=== PATIENT | male | born 1965 | race Caucasian/White ===

== ENCOUNTER 2019-09-10 18:27 | Emergency (ER) | payer MEDICARE, MEDICAID, SELFPAY ==
--- NOTE | ~2019-09-10 | CT_ITS ---
EXAMINATION: CT cervical spine wo con, CT brain wo con EXAM DATE: 09/10/2019 19:32 (accession [id number]), 09/10/2019 19:31 (accession [id number]) INDICATION: Fall, posterior head injury. Confusion. Posterior neck pain. TECHNIQUE: Spiral CT of the head was performed without contrast. Axial, coronal and sagittal images were reviewed. Spiral CT of the cervical spine was performed without contrast. Axial images were rev iewed. Coronal and sagittal reformatted images were also reviewed. The dose-length product (DLP) fo r this examination was 214.29 (accession [id number]), 605.33 (accession [id number]) mGy-cm. The exposure was tailored according to patient size, and iterative reconstruction (ASIR) was used as additional dose reduction technique. There is no prior study for comparison. FINDINGS: HEAD CT: There is no acute intraparenchymal hemorrhage. No evidence of intraparenchymal brain mass l esion. No evidence of acute infarction. There is no mass effect or midline shift. There is no obstru ctive hydrocephalus suspected. There are no extra-axial collections. There are no acute calvarial f ractures. The orbits are unremarkable. Soft tissue is unremarkable. The visualized sinuses and mas toid air cells are well aerated. CERVICAL CT: There is severe apical emphysema. Moderate midcervical spondylosis. There is no evidence of acute cervical fracture. The odontoid process is intact. Pre-dens space is normal. Prevertebra l soft tissue is normal. There are no soft tissue abnormalities identified. There is no disc space widening or traumatic vertebral body subluxation suspected. A detailed level by level evaluation of spondylosis can be added as addendum if requested. IMPRESSION: 1. No acute intracranial or cervical findings. 2. Moderate midcervical spondylosis. 3. Severe apical emphysema. Reviewed, dictated and finalized at location A. IMPRESSION: 1. No acute intracranial or cervical findings. 2. Moderate midcervical spondylosis. 3. Severe apical emphysema.
[2019-09-10 19:05] VITALS: BP 136/78; PULSE 95; RESP 18; TEMP 37.1; O2SAT 97
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
[2019-09-10 20:07] VITALS: RESP 18
== END 2019-09-10 20:08 | disposition home or self-care (01) ==
PROVIDERS: Emergency Provider Emergency Medicine; PCP Family Medicine
DX: S06.0X0A Concussion without loss of consciousness, initial encounter (principal); V94.0XXA Hitting object or bottom of body of water due to fall from watercraft, initial encounter
CPT/HCPCS: 70450; 72125; 99283; 99284

== ENCOUNTER 2019-09-19 18:08 | Inpatient (IN) | payer MEDICARE, MEDICAID, SELFPAY ==
[2019-09-19] VITALS (10 sets, daily range): BP systolic 110–163; BP diastolic 64–86; PULSE 64–85; RESP 12–20; TEMP 36.9–37.1; O2SAT 94–98; BMI 22.4
--- NOTE | ~2019-09-19 | CT_ITS ---
EXAMINATION: CT abdomen pelvis w con EXAM DATE: 09/19/2019 19:58 INDICATION: Elevated lipase. TECHNIQUE: Spiral CT of the abdomen and pelvis was performed following intravenous injection of 100 m L Omnipaque 350. Axial, coronal and sagittal images were reviewed. The dose-length product (DLP) fo r this examination was 377.04 mGy-cm. The exposure was tailored according to patient size (auto mA e xposure control), and iterative reconstruction (ASIR) was used as additional dose reduction technique . Comparison is made to prior examination from 06/30/2014. FINDINGS: The liver, spleen, adrenal glands and pancreas are unremarkable. Gallbladder is unremarkab le. No biliary obstruction. Portal and splenic veins are patent. Kidneys enhance symmetrically. T here is no hydronephrosis. There is punctate left mid calyceal stone. The prostate is unremarkable. The bladder is unremarkable. There is no retroperitoneal or pelvic lymphadenopathy. The appendix is not positively visualized. There is no pericecal inflammatory change to suggest appe ndicitis. Some pericecal surgical clips. There is mild descending colonic colonic diverticulosis. Th ere is no adjacent inflammatory change to suggest diverticulitis. The stomach and small bowel are unr emarkable. There is expected amount of colonic stool. No free intraperitoneal gas. The heart is normal in size. There are no pericardial or pleural effusions. Small amount of right middle lobe sc arring. The bones are unremarkable. IMPRESSION: 1. No acute intra-abdominal findings. 2. Mild colonic diverticulosis. 3. Punctate left nephrolithiasis. Reviewed, dictated and finalized at location A.
--- NOTE | ~2019-09-19 | US_ITS ---
EXAMINATION: US abdomen complete DATE: 09/20/2019 08:10 INDICATION: Abdominal pain. Nausea and vomiting. Elevated lipase. TECHNIQUE: Multiple grayscale and Doppler ultrasound images of the abdomen were obtained. COMPARISON: CT abdomen and pelvis 09/19/2019 FINDINGS: The visualized portions of the head, body, and tail of the pancreas are normal. The liver d emonstrates a 7 mm hyperechoic mass. There is normal flow in main portal vein. The gallbladder is nor mal in size and contains sludge. No gallstones or gallbladder wall thickening. There was no sonograph ic Cook sign. The common duct is normal and measures 4 mm. The spleen is normal in size. The kidney s are normal in size. There is a 1.3 cm cyst in left kidney. IMPRESSION: 1. Gallbladder sludge. No evidence of acute cholecystitis. 2. 7 mm liver mass. In the absence of known malignancy or chronic liver disease, this finding is like ly a benign mass such as a hemangioma. Reviewed, dictated and finalized at location A. IMPRESSION: 1. Gallbladder sludge. No evidence of acute cholecystitis. 2. 7 mm liver mass. In the absence of known malignancy or chronic liver disease , this finding is likely a benign mass such as a hemangioma.
--- NOTE | 2019-09-19 18:27 | ED.ABDPAIN ---
HPI - Abdominal Pain General Chief Complaint: Abdominal Pain Stated Complaint: not eating, cant keep anything down Time Seen by Provider: 09/19/19 18:11 Source: patient Mode of arrival: ambulatory History of Present Illness HPI narrative: patient states he has been having diffuse abdominal pain for the last 3 days. She has not been able to keep even water down. He tried some popsicles at home and those made him nauseous and crossed and more abdominal pain. He has only been having some diarrhea for 1 day. Nausea vomiting off and on for 3 days. Denies any fever chills. Denies any bloody stools. MD elicited complaint: abdominal pain Onset (ago): day(s) (3) Pain Consistency: intermittent Location: diffuse Pain scale (0-10): 7 Quality: cramping and stabbing Migration to: no migration Exacerbating factors: eating and movement Relieving factors: nothing Context: confirms history of similar episodes ( Diverticulitis) Associated symptoms: nausea, vomiting and diarrhea Related Data Home Medications Medication Instructions Recorded Confirmed No Home Medications 09/19/19 09/19/19 Allergies Allergy/AdvReac Type Severity Reaction Status Date / Time No Known Allergies Allergy Verified 09/19/19 14:28 Review of Systems Constitutional: Constitutional: Denies chills and Denies fever(s) Eyes: Eyes: Reports no additional eye complaints ENT: Reports system reviewed and no additional complaints, except as documented Cardiovascular: Cardiovascular: Reports no additional cardiovascular complaints Respiratory: Respiratory: Reports no additional respiratory complaints Gastrointestinal: Gastrointestinal: Denies constipation and Denies heartburn Genitourinary: Genitourinary: Reports no additional male genitourinary complaints and Denies dysuria Musculoskeletal: Musculoskeletal: Reports no additional musculoskeletal complaints Integumentary/Breasts: Skin/Breast: Reports system reviewed and no additional complaints, except as docu Neurologic: Reports confusion ( not new, patient had recent concussion) Psychiatric: Psychiatric: Reports no additional psychiatric complaints Allergic/Immunologic: Allergic/Immunologic: Reports no additional allergic/immunologic complaints PMFSH Past Medical History Medical History Anxiety Cerna's palsy C. 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 Eyes: Conjunctivae: conjunctivae normal Pupils: Equal, round and reactive pupils present EOM: EOMs intact bilaterally Neck: Neck: normal visual inspection Resp: Effort & Inspection: normal respiratory effort Auscultation: clear to auscultation bilaterally Cardio: Rate: regular rate Rhythm: regular rhythm GI: GI Palp: Yes Soft to palpation, Yes Tenderness to palpation present (GI), Yes Guarding due to palpation present (GI) (Diffuse), No Hepatomegaly present, No Splenomegaly present and Yes Rebound tenderness present Auscultation: normal bowel sounds Back/Spine/Pelvis: Back: no CVA tenderness Skin: General skin exam: normal color Rashes: no rashes Neuro: General: patient oriented x3, moves all extremities and no focal motor deficits Speech: normal speech Gait exam (Neuro): Normal gait present Extrem: General: normal to inspection
[2019-09-19] MEDS: ONDANSETRON INJ 4 MG/2 ML VIAL IV PUSH (18:40)
[2019-09-19 19:02] LABS: Basophils Absolute Auto 0.05 K/mm3 (0.00-0.10); Basophils Percent Auto 0.4 % (0.0-1.0); Eosinophils Absolute Auto 0.04 K/mm3 (0.02-0.50); Eosinophils Percent Auto 0.4 % (1.0-6.0); Hematocrit 43.3 % (40.0-54.0); Hemoglobin 15.2 g/dL (14.0-18.0); Immature Granulocyte Absolute 0.05 K/mm3 (0.00-0.00); Immature Granulocyte Percent A 0.4 % (0.0-0.0); Lymphocytes Absolute Auto 1.95 K/mm3 (1.10-4.50); Lymphocytes Percent Auto 17.4 % (18.0-42.0); Mean Corpuscular HGB Conc 35.1 g/dL (32.0-36.0); Mean Corpuscular Hemoglobin 31.8 pg (27.0-31.0); Mean Corpuscular Volume 90.6 fL (78.0-102.0); Mean Platelet Volume 9.7 fl (8.7-11.0); Monocytes Absolute Auto 0.72 K/mm3 (0.10-0.90); Monocytes Percent Auto 6.4 % (2.0-11.0); Neutrophils Absolute Auto 8.4 K/mm3 (1.7-7.2); Platelet Count Result 327 K/mm3 (150-420); Red Blood Count 4.78 M/mm3 (4.70-6.10); Red Cell Distribution Width 13.3 % (11.6-14.4); White Blood Count 11.2 K/mm3 (4.8-10.8)
[2019-09-19 19:02] LABS: Add Urine Microscopic? YES; Appearance Urine Clear (Clear); Bilirubin Urine Negative (Negative); Blood Urine 1+ (Negative); Color Urine Yellow (Yellow); Glucose Urine UA Negative (Negative); Ketones Urine Negative (Negative); Leukocyte Esterase Ur Negative LEU/UL (Negative); Nitrate Urine Negative (Negative); Protein Urine Negative (Negative); Urobilinogen Urine 0.2 mg/dL (0.2-1.0)
[2019-09-19 19:08] LABS: Squamous Epithelial Cell Urine Rare /hpf (Few); WBC Urine 0-3 /hpf (0-3)
[2019-09-19 19:09] LABS: Bacteria Urine Trace /hpf; Mucus Urine Few /lpf
[2019-09-19 19:12] LABS: Amphetamine Screen Urine Negative (Negative); Barbiturate Screen Urine Negative (Negative); Benzodiazepines Screen Urine Negative (Negative); Cannabinoid Screen Urine Positive (Negative); Cocaine Screen Urine Negative (Negative); Methadone Screen Urine Negative (Negative); Opiate Screen Urine Negative (Negative); Phencyclidine Screen Urine Negative (Negative)
[2019-09-19 19:23] LABS: Lactic Acid Reflex 1.6 mmol/L (0.4-2.0)
[2019-09-19 19:27] LABS: Alanine Aminotransferase 23 U/L (16-63); Albumin Level 2.9 g/dL (3.4-5.0); Alkaline Phosphatase 62 U/L (46-116); Anion Gap 9.7 mmol/L (7-16); Aspartate Amino Transferase 13 U/L (15-37); Bilirubin,Total 0.6 mg/dL (0.00-1.00); Blood Urea Nitrogen 11 mg/dL (7-18); Calcium 8.2 mg/dL (8.5-10.1); Carbon Dioxide 30 mmol/L (21-32); Chloride 102 mmol/L (98-108); Estimated CRCL calculation 73 ml/min; Estimated Glomerular Filt Rate > 60; Glucose 130 mg/dL (70-99); Lipase 1320 U/L (73-393); Osmolality Calculated 287 mOsm/kg (285-295); Potassium 3.7 mmol/L (3.5-5.1); Sodium 138 mmol/L (136-145); Total Protein 6.4 g/dL (6.4-8.2)
[2019-09-19] MEDS: HYDROMORPHONE HCL 2 MG/ML VIAL 1 MG IV PUSH ×2 (19:37→23:48)
[2019-09-19 19:43] LABS: Amylase 153 U/L (25-115)
[2019-09-19 20:01] LABS: Erythrocyte Sedimentation Rate 4 mm/hr (0-20)
[2019-09-19 20:05] LABS: CRP < 0.2 mg/dL (0.0-0.9)
--- NOTE | 2019-09-19 20:26 | PC.NURSE ---
2019 RN CONTACTED VAIBHAV WELLS RN, TO REQUEST INPATIENT ROOM. ROOM 205 PROVIDED. REGISTRATION NOTIFIED.
--- NOTE | 2019-09-19 20:33 | PC.NURSE ---
RN ATTEMPTED TO CALL REPORT AT 2032, PRISCILLA ESPOSITO RN STATES THAT JAYLENE GERARDO IS FINISHING UP MEDICATION PASS AND WILL CALL RN BACK IN 5 MINUTES.
[2019-09-19] MEDS: DEXTROSE 5%/0.45% SOD CHL 1,000 ML 150 ML IV CONT (20:59)
--- NOTE | 2019-09-19 21:24 | ADMGEN ---
This patient, Chucky Ojeda, was admitted to 2nd Floor Room 205-2. Patient oriented to hospital policies and general routines including ID bracelet, bed and alarms, visiting hours, pain management, procedures, bathroom and other care routines, personal items, smoking policy, room service/diet, and visiting hours. Valuables list includes clothing he has on, hat, wallet with $100 in it, cell phone with no furnace checker. Information on how to activate the Rapid Response Team has been discussed. Patient/Family are encouraged to report perceived risks to care and to ask questions if they do not understand what they are told or what they should do.
[2019-09-20] VITALS: BP 116/75; PULSE 54; RESP 20; TEMP 36.5; O2SAT 94
[2019-09-20] MEDS: ONDANSETRON INJ 4 MG/2 ML VIAL IV PUSH (00:08)
--- NOTE | 2019-09-20 00:14 | PC.NURSE ---
0005 Dr. Barakat notified of pt's c/o nausea and dry heaves. New orders received and noted.
--- NOTE | 2019-09-20 00:15 | PC.NURSE ---
When nurse gave patient the requested Dilaudid for abdominal pain patient was having dry heaves. Charge nurse notified and she then notified Dr Barakat and received order to change patient's Zofran from every 6 hours to every 4 hours. Zofran then given.
[2019-09-20] MEDS: DEXTROSE 5%/0.45% SOD CHL 1,000 ML 150 ML IV CONT (03:23)
[2019-09-20 05:46] LABS: Basophils Absolute Auto 0.04 K/mm3 (0.00-0.10); Basophils Percent Auto 0.4 % (0.0-1.0); Eosinophils Absolute Auto 0.25 K/mm3 (0.02-0.50); Eosinophils Percent Auto 2.4 % (1.0-6.0); Hematocrit 39.6 % (40.0-54.0); Hemoglobin 13.8 g/dL (14.0-18.0); Immature Granulocyte Absolute 0.04 K/mm3 (0.00-0.00); Immature Granulocyte Percent A 0.4 % (0.0-0.0); Lymphocytes Absolute Auto 4.32 K/mm3 (1.10-4.50); Lymphocytes Percent Auto 42.3 % (18.0-42.0); Mean Corpuscular HGB Conc 34.8 g/dL (32.0-36.0); Mean Corpuscular Volume 91.9 fL (78.0-102.0); Mean Platelet Volume 9.8 fl (8.7-11.0); Monocytes Absolute Auto 0.82 K/mm3 (0.10-0.90); Neutrophils Absolute Auto 4.8 K/mm3 (1.7-7.2); Neutrophils Percent Auto 46.5 % (50.0-70.0); Platelet Count Result 274 K/mm3 (150-420); Red Blood Count 4.31 M/mm3 (4.70-6.10); Red Cell Distribution Width 13.5 % (11.6-14.4); White Blood Count 10.2 K/mm3 (4.8-10.8)
[2019-09-20 05:58] LABS: Amylase 74 U/L (25-115); Lipase 310 U/L (73-393)
--- NOTE | 2019-09-20 07:28 | PC.NURSE ---
Ice chips given, has been advanced to clear liquid diet
[2019-09-20 07:29] VITALS: BP 107/66; PULSE 63; RESP 18; TEMP 36.7; O2SAT 98
--- NOTE | 2019-09-20 07:39 | PC.NURSE ---
Ultra sound at the bedside to perform abdominal ultra sound, collection hat to bathroom to attempt to collect stool samples
--- NOTE | 2019-09-20 08:00 | PC.NURSE ---
Ultra sound complete
[2019-09-20 08:22] LABS: Alanine Aminotransferase 18 U/L (16-63); Albumin Level 2.5 g/dL (3.4-5.0); Alkaline Phosphatase 53 U/L (46-116); Anion Gap 8.1 mmol/L (7-16); Aspartate Amino Transferase 11 U/L (15-37); Bilirubin,Total 0.4 mg/dL (0.00-1.00); Blood Urea Nitrogen 9 mg/dL (7-18); Calcium 7.8 mg/dL (8.5-10.1); Carbon Dioxide 31 mmol/L (21-32); Chloride 103 mmol/L (98-108); Estimated CRCL calculation 79 ml/min; Estimated Glomerular Filt Rate > 60; Glucose 110 mg/dL (70-99); Magnesium 2.2 mg/dL (1.8-2.4); Osmolality Calculated 287 mOsm/kg (285-295); Phosphorus 3.5 mg/dL (2.6-4.7); Potassium 3.1 mmol/L (3.5-5.1); Sodium 139 mmol/L (136-145); Thyroid Stimulating Hormone Reflex 1.61 u/IU/mL (0.36-3.74); Total Protein 5.5 g/dL (6.4-8.2)
--- NOTE | 2019-09-20 08:37 | PC.NURSE ---
Took in some oral fluids, no nausea, no increase in pain voiced, fluids infusing
--- NOTE | 2019-09-20 08:51 | ECG_ITS ---
Measurements Intervals [place] Rate: 61 P: 61 ME: 133 QRS: 79 QRSD: 85 T: 60 QT: 403 QTc: 406 Interpretive Statements SINUS RHYTHM DELAYED PRECORDIAL R/S TRANSITION BORDERLINE ECG Electronically Signed On 09-20-2019 10:46:30 CDT by Brooks Blandon D.O.
[2019-09-20 09:22] LABS: Creatine Kinase 29 U/L (39-308)
[2019-09-20 09:25] LABS: Creatine Kinase MB < 0.50 ng/mL (0.00-5.00); Troponin I < 0.02 ng/mL (0.00-0.056)
[2019-09-20] MEDS: LACTATED RINGERS 1,000 ML 100 ML IV CONT (10:01)
--- NOTE | 2019-09-20 10:08 | PM.IMHP ---
H&P: HPI History of Present Illness Chief complaint: pancreatitis <Latasha Betancur, CARTOGRAPHY TEACHER - Last Filed: 09/20/19 14:33> Narrative: Chucky Ojeda is a 53 year old male admitted yesterday afternoon do the ER due to him having diffuse abdominal pain for the last 3 days approximately since Wednesday. He stated that every time he had a meal or food about an hour later he would start to have abdominal cramping and pain and then vomiting and diarrhea. He stated that the only way he could get comfortable was to sit upright, straight upright, or to curl up on his side. He said he did try Tums and milk of magnesia at home without any relief. He denies taking Tylenol or Motrin on a daily basis, he denies alcohol consumption even social alcohol consumption, he denied marijuana use at the time of my interview. But his urine screen, urinalysis, did show positive for cannabinoids. He denies having any blood in his vomit or in his stools or in his urine. Although his urinalysis again showed 1+ blood, 3-5 RBCs, negative for nitrates, negative for bili, trace bacteria. His white count was 10.2 today, hemoglobin and hematocrit stable today at 13.8 and 39.6, platelets 274. No fevers per review of vital signs and no hypotension or tachycardia and his lowest heart rate was 54, vital signs appear stable. His EKG was a normal sinus rhythm that was regular with no ST elevation or depressions noted. His electrolytes were stable today after the IV fluids, magnesium 2.2 phosphorus 3.5. His potassium was 3.1; I have ordered oral potassium at 40 mEq to be given this morning and another dose in 4 hours this afternoon. He denies chest pain, shortness of breath, denies current nausea, vomiting, abdominal pain. His abdomen is soft and palpable with no distension or firmness, he has no rebound tenderness and no palpable liver edges. We have ordered a complete abdominal ultrasound for further diagnostics, ordered stool cultures, changed his IV fluids from D5 to LR, advancing his diet as tolerated from clear liquids up to a bland low-fat diet, using oral medications such as Tylenol and or [place] to treat any pain and discontinuing the IV Dilaudid, ordered an EKG and reviewed that are ready. His lipase was 1320 admission and found to be 310 this morning, his lactic was 1.6, his total bilirubin was 0.4, ALT 18, AST 11, alk-phos 53 , CRP less than 0.2, amylase 74, TSH 1.61. He does not seem to have any signs or symptoms of liver disease at this time. He does have a recent history of a concussion with post-concussion syndrome including headaches, nausea, maxillofacial pain which he has been in the ER at [facility] and at [facility] in [facility] for these concerns. He has had CT scans and lumbar spine x-ray at [facility] on September 11 which showed no acute abnormalities or concerns. Also at [facility] on June 21 he was admitted for abdominal pain and was complaining of vomiting blood, his lipase was 149 and LFTs WNL, his CT showed improvement of his diverticulitis since his antibiotic therapy completed. He did have an EGD with Dr. Delfino Mcdaniel. which showed moderate reflux espophagitis and chronic gastritis inflammation with no active bleed on June 22. His CT scan on June 21 showed bilateral nephrolithiasis and uncomplicated diverticulitis. He was started on oral Protonix when he was discharged from [facility] on June 21 and was continued on methylprednisolone , Zofran, Zoloft. He was to have a follow-up with Dr. Delfino Mcdaniel in July 2019 and get a planned colonoscopy also completed. If the patient tolerates these meals without any new or returning abdominal pain, nausea vomiting, diarrhea; he may be discharged today and expected to follow-up with his PCP Dr. Cox regarding the 1+ blood in his urine as well as follow-up with GI Dr. Delfino Mcdaniel for his colonoscopy. He should follow-up with both of these providers and
[2019-09-20] MEDS: POTASSIUM CHLORIDE 20 MEQ TABLET 40 MEQ PO ×2 (10:32→13:19)
--- NOTE | 2019-09-20 10:46 | PC.NURSE ---
stool samples obtained, brown liquid stool noted
[2019-09-20 11:09] LABS: Folic Acid 7.7 ng/mL (8.6->20); Iron 104 ug/dL (65-175); Percent Iron Saturation 42 % (12-57); Vitamin B12 424 pg/mL (193-986)
[2019-09-20 11:09] LABS: Occult Blood Negative (Negative)
--- NOTE | 2019-09-20 12:02 | PC.NURSE ---
Tolerating lunch at this time, denies increase pain or nausea
--- NOTE | 2019-09-20 13:21 | PC.NURSE ---
potassium given early as directed by hospitalist
--- NOTE | 2019-09-20 13:31 | PM.DS ---
DS: Discharge Diagnosis Discharge Diagnosis (1) Pancreatitis: Code(s): K85.90 - Acute pancreatitis without necrosis or infection, unspecified <Latasha Betancur NP - Last Filed: 09/20/19 14:34> Status: Acute <Latasha Betancur NP - Last Filed: 09/20/19 14:34> Assessment and Plan: Patient was admitted yesterday for acute pancreatitis with abdominal pain and cramping, nausea vomiting and diarrhea and unable to eat he was placed on NPO status he was given IV fluids at 150 mils an hour overnight His lipase was 1320 admission and found to be 310 this morning, his lactic was 1.6, his total bilirubin was 0.4, ALT 18, AST 11, alk-phos 53 , CRP less than 0.2, amylase 74, TSH 1.61. his pain has completely resolved and is well controlled today as he has not required any IV or oral pain since last night no fevers, WBC normal, no chills, UA clear for Nitrate and trace bacteria tolerated both of his meals today No new or returning abdominal pain, nausea vomiting, diarrhea continue to avoid alcohol and stop his marijuana use No fevers per review of vital signs and no hypotension or tachycardia and his lowest heart rate was 54, vital signs appear stable. His EKG was a normal sinus rhythm that was regular with no ST elevation or depressions noted. His electrolytes were stable today after the IV fluids, magnesium 2.2 phosphorus 3.5. His potassium was 3.1; I have ordered oral potassium at 40 mEq to be given this morning and another dose in 4 hours this afternoon. continue a bland low-fat diet He will be discharged today and expected to follow-up with his PCP Dr. Cox regarding the 1+ blood in his urine as well as follow-up with GI Dr. Delfino Mcdaniel for his colonoscopy. He should follow-up with both of these providers and discuss his intermittent episodes of return of abdominal pain as well as the liver mass shown on today's ultrasound. <Latasha Betancur NP - Last Filed: 09/20/19 14:34> (2) Emphysema lung: Code(s): J43.9 - Emphysema, unspecified <Latasha Betancur NP - Last Filed: 09/20/19 14:34> Status: Acute <Latasha Betancur NP - Last Filed: 09/20/19 14:34> Assessment and Plan: lungs were clear with auscultation upon exam today patient is not coughing or clearing his throat, no signs of dyspnea or shortness of breath. He continues to smoke at least half a pack a day, but does not require home nebs or inhaler. white count was 10.2 today, hemoglobin and hematocrit stable today at 13.8 and 39.6, platelets 274. No fevers per review of vital signs and no hypotension or tachycardia and his lowest heart rate was 54, vital signs appear stable. His EKG was a normal sinus rhythm that was regular with no ST elevation or depressions noted. <Latasha Betancur, EMEKA - Last Filed: 09/20/19 14:34> (3) Left nephrolithiasis: Code(s): N20.0 - Calculus of kidney <Latasha Betancur NP - Last Filed: 09/20/19 14:34> Status: Acute <Latasha Betancur NP - Last Filed: 09/20/19 14:34> Assessment and Plan: his CT yesterday evening showed punctate left nephrolithiasis( on left mid calyceal stone) his ultrasound today showed The kidneys are normal in size. There is a 1.3 cm cyst in left kidney. the patient during his examination did not have any flank pain, did not have any pain with urination, and denied having blood with urination or urgency Juan did tell me that he has had a kidney stone in the past that he passed and stated that he would have recognized that pain, stated himself that it was flank pain in the past when he had a kidney stone to pass, and denied that his pain for this admission was anything like that during this admission, neither his CT scan nor his ultrasound showed that he had hydronephrosis or any inflamed ureters or any acute or concerning kidney stones his renal function is normal as well as his white count and he does not have any fevers his pain is wel
--- NOTE | 2019-09-20 13:48 | PC.NURSE ---
Discharge instructions reviewed with patient, no questions voiced, calling for ride home personal items with patient
--- NOTE | 2019-09-20 13:55 | PC.NURSE ---
Discharged via wheel chair to home, personal items returned to patient, no questions upon dc home
== END 2019-09-20 13:55 | disposition home or self-care (01) | DRG 440 ==
LOC: CHSED 20:25 → CHS2ND 20:35
PROVIDERS: Nurse Practitioner; Admitting Provider Emergency Medicine; Emergency Provider Emergency Medicine; PCP Family Medicine; Visit Provider Emergency Medicine
DX: K85.90 Acute pancreatitis without necrosis or infection, unspecified (principal); F41.9 Anxiety disorder, unspecified; F32.9 Major depressive disorder, single episode, unspecified; F17.200 Nicotine dependence, unspecified, uncomplicated; G51.0 Bell's palsy; N20.0 Calculus of kidney; R16.0 Hepatomegaly, not elsewhere classified; K82.8 Other specified diseases of gallbladder; J43.9 Emphysema, unspecified; H54.8 Legal blindness, as defined in USA; F17.220 Nicotine dependence, chewing tobacco, uncomplicated; F12.90 Cannabis use, unspecified, uncomplicated
CPT/HCPCS: 36415; 74177; 76700; 80053; 80307; 81001; 82150; 82550; 82553; 82607; 82746; 83540; 83550; 83605; 83690; 83735; 84100; 84443; 84484; 85025; 85652; 86140; 87045; 87046; 87177; 87209; 87269; 87272; 87324; 87427; 89055; 93005; 96374; 96375; 99284; 99285; A9270; J1170; J2405; J7120; Q9965

== ENCOUNTER 2019-09-21 02:03 | Observation (INO) | payer MEDICARE, MEDICAID, SELFPAY ==
[2019-09-21] VITALS (7 sets, daily range): BP systolic 110–163; BP diastolic 70–104; PULSE 56–86; RESP 18–20; TEMP 36.1–37.2; O2SAT 94–100; BMI 23.5
--- NOTE | ~2019-09-21 | CT_ITS ---
EXAMINATION: CT abdomen pelvis w con DATE: 09/21/2019 03:59 INDICATION: Abdominal pain. Leukocytosis. TECHNIQUE: Computed tomography (CT) of the abdomen and pelvis was performed with 100 mL Omnipaque 350 intravenous contrast. Automated exposure control and iterative reconstruction technique were employe d. The dose-length product was 239.63 mGy-cm. COMPARISON: CT abdomen and pelvis 09/19/2019, 06/30/2014 FINDINGS: The visualized portions of the lung bases demonstrate mild atelectasis on the right. There is a 5 mm nodule in right middle lobe not included on the CT from 06/30/2014, likely benign. No pleura l effusion. The heart size is normal. No pericardial effusion. The liver, gallbladder, spleen, pancre as, adrenal glands, and right kidney are normal. There are cysts in left kidney measuring up to 1.2 c m. There is a 2 mm stone in left kidney. There is diverticulosis of the colon without evidence of div erticulitis. There are changes of appendectomy. There are no pathologically enlarged lymph nodes. The re is no free intraperitoneal fluid. There are small bilateral inguinal hernias containing fat. There is mild thoracolumbar spondylosis. IMPRESSION: 1. Small bilateral inguinal hernias containing fat. 2. 2 mm nonobstructing left kidney stone. Reviewed, dictated and finalized at location A.
--- NOTE | 2019-09-21 02:10 | ECG_ITS ---
Measurements Intervals [place] Rate: 74 P: 79 TX: 126 QRS: 85 QRSD: 78 T: 72 QT: 350 QTc: 389 Interpretive Statements SINUS RHYTHM BASELINE ARTIFACT- I, II, III, AVR, AVL, AVF, V1-V6 NORMAL ECG Electronically Signed On 09-21-2019 7:05:58 CDT by Brooks Blandon D.O.
[2019-09-21] MEDS: MORPHINE SULFATE 4 MG/ML INJ IV PUSH ×2 (02:21→02:39)
[2019-09-21] MEDS: ONDANSETRON INJ 4 MG/2 ML VIAL IV PUSH ×3 (02:21→07:47)
[2019-09-21] MEDS: LACTATED RINGERS 1,000 ML 999 ML IV CONT ×2 (02:38→04:40)
--- NOTE | 2019-09-21 02:47 | ED.ABDPAIN ---
HPI - Abdominal Pain General Chief Complaint: Abdominal Pain Stated Complaint: Abdominal Pain History of Present Illness HPI narrative: Chucky is a 53-year-old man with a PMH of tobacco abuse, gallbladder sludge, nephrolithiasis, C. diff and Cerna's that was discharged with acute pancreatitis of idiopathic origin yesterday. At the time of discharge she was feeling good and did not want any pain medicines on discharge. Today he went home took a nap and only ate a bowl of chicken noodle soup when he started having diffuse abdominal pain worse in the epigastric region. It is associated with intense nausea and multiple episodes of NBNB vomiting. Related Data Allergies Allergy/AdvReac Type Severity Reaction Status Date / Time No Known Allergies Allergy Verified 09/19/19 14:28 Review of Systems Constitutional: Constitutional: Denies chills, Reports fatigue and Denies fever(s) Eyes: Eyes: Reports no additional eye complaints ENT: Reports system reviewed and no additional complaints, except as documented Cardiovascular: Cardiovascular: Denies chest pain and Denies radiating jaw, neck or arm pain Respiratory: Respiratory: Reports no additional respiratory complaints Gastrointestinal: Gastrointestinal: Reports as per HPI Genitourinary: Genitourinary: Reports no additional male genitourinary complaints Musculoskeletal: Musculoskeletal: Reports no additional musculoskeletal complaints Integumentary/Breasts: Skin/Breast: Reports system reviewed and no additional complaints, except as docu Neurologic: Reports system reviewed and no additional complaints, except as documented Psychiatric: Psychiatric: Reports no additional psychiatric complaints Endocrine: Endocrine: Reports no additional endocrine complaints Hematologic/Lymphatic: Hematologic/Lymphatic: Reports no additional hematologic/lymphatic complaints Allergic/Immunologic: Allergic/Immunologic: Reports no additional allergic/immunologic complaints [facility] Past Medical History Medical History Anxiety Back pain Cerna's palsy 2010, 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 difficile colitis Depression Diverticulitis 06/06/2019 diverticulitis involving the distal descending colon Head injury Hematemesis Irritable bowel syndrome Legally blind Surgical History Surgical History H/O eye surgery History of appendectomy Family History Family History Other Family history not known due to adoption patient stated that he was a foster child and does not know his genetic family health history Social History Social History Smoking packs per day: 0.5 Smoking cigarettes per day: 10.0 Years smoked: 38 Smoking pack-years: 19.00 Smoking status: Current every day smoker Tobacco type: cigarettes Second hand tobacco smoke exposure: Yes Alcohol intake: former Substance use: current Substance use type: marijuana Last use: today Gender identity (if verbalized by the patient): Male Spiritual care concerns: No Exam Const: General: alert Orientation/consciousness: patient oriented x3 Limitations: No altered mental status Other: in moderate amount of agony and significant pain hunched over holding his abdomen with rhythmic rocking HENMT: Head: normal to inspection Other: normocephalic, atraumatic Eyes: Conjunctivae: conjunctivae normal Pupils: Equal, round and reactive pupils present Neck: Neck: normal visual inspection Chest: Chest palpation & inspection: normal inspection of the chest Resp: Effort & Inspection: normal respiratory effort Auscultation: dara
[2019-09-21 02:57] LABS: Hematocrit 44.9 % (40.0-54.0); Hemoglobin 15.6 g/dL (14.0-18.0); Mean Corpuscular HGB Conc 34.7 g/dL (32.0-36.0); Mean Corpuscular Hemoglobin 31.8 pg (27.0-31.0); Mean Corpuscular Volume 91.6 fL (78.0-102.0); Mean Platelet Volume 9.6 fl (8.7-11.0); Platelet Count Result 337 K/mm3 (150-420); Red Cell Distribution Width 13.5 % (11.6-14.4)
[2019-09-21 02:58] LABS: Add Urine Microscopic? YES; Appearance Urine Clear (Clear); Bilirubin Urine Negative (Negative); Blood Urine 1+ (Negative); Color Urine Yellow (Yellow); Glucose Urine UA Negative (Negative); Ketones Urine Negative (Negative); Leukocyte Esterase Ur Negative (Negative); Nitrate Urine Negative (Negative); Protein Urine Negative (Negative); Urobilinogen Urine 0.2 mg/dL (0.2-1.0); pH Urine 6.5 (5.0-8.0)
[2019-09-21 03:06] LABS: Prothrombin Time 10.2 Seconds (9.64-11.0)
[2019-09-21 03:17] LABS: Alanine Aminotransferase 23 U/L (16-63); Albumin Level 3.2 g/dL (3.4-5.0); Alkaline Phosphatase 67 U/L (46-116); Anion Gap 12.3 mmol/L (7-16); Aspartate Amino Transferase 14 U/L (15-37); Bilirubin,Total 0.4 mg/dL (0.00-1.00); Calcium 8.8 mg/dL (8.5-10.1); Carbon Dioxide 29 mmol/L (21-32); Chloride 103 mmol/L (98-108); Estimated CRCL calculation 65 ml/min; Estimated Glomerular Filt Rate > 60; Glucose 121 mg/dL (70-99); Lipase 147 U/L (73-393); Potassium 4.3 mmol/L (3.5-5.1); Sodium 140 mmol/L (136-145); Total Protein 6.9 g/dL (6.4-8.2)
[2019-09-21 03:23] LABS: Lactic Acid 1.3 mmol/L (0.4-2.0)
[2019-09-21 03:27] LABS: White Blood Count 21.3 K/mm3 (4.8-10.8)
[2019-09-21 03:28] LABS: Bacteria Urine Trace /hpf; Band Neutrophils Percent 0 % (0-6); Neutrophils Absolute Manual 16.18 K/mm3 (1.3-6.7); Neutrophils Percent Manual 76 % (46-73); Squamous Epithelial Cell Urine None seen /hpf (Few); WBC Urine 0-3 /hpf (0-3)
[2019-09-21 03:29] LABS: Basophils Absolute Manual 0.21 K/mm3 (0-0.1); Basophils Percent Manual 1 % (0-1); Eosinophils Absolute Manual 0.21 K/mm3 (0.02-0.5); Eosinophils Percent Manual 1 % (1-6); Lymphocytes Absolute Manual 3.83 K/mm3 (1.1-4.5); Lymphocytes Percent Manual 18 % (18-44); Monocytes Absolute Manual 0.85 K/mm3 (0.1-0.90); Monocytes Percent Manual 4 % (3-9); Platelet Estimate Adequate (Adequate)
[2019-09-21 03:35] LABS: Blood Urea Nitrogen 17 mg/dL (7-18); Osmolality Calculated 292 mOsm/kg (285-295); Troponin I < 0.02 ng/mL (0.00-0.056)
[2019-09-21 03:41] LABS: Cholesterol 141 mg/dL (0-200); HDL Direct 45 mg/dL (40-60); LDL Cholesterol Calculated 75 mg/dL (<130); Triglycerides 104 mg/dL (0-150)
--- NOTE | 2019-09-21 03:42 | PC.NURSE ---
TO XRAY FOR CT.
--- NOTE | 2019-09-21 04:05 | PC.NURSE ---
returned from xray, continues with nausea. erp notified
--- NOTE | 2019-09-21 04:27 | PC.NURSE ---
pt to be admitted for observation and pain control.
--- NOTE | 2019-09-21 06:05 | PC.NURSE ---
Pt's called to check on pt. She was updated on his condition.
--- NOTE | 2019-09-21 06:22 | PC.NURSE ---
Pt voided 500 ml of clear, yellow urine in urinal.
[2019-09-21] MEDS: MORPHINE SULFATE 2 MG/ML INJ 4 MG IV PUSH ×2 (07:47→11:41)
[2019-09-21] MEDS: PANTOPRAZOLE 40 MG TABLET PO (07:48)
[2019-09-21] MEDS: LACTATED RINGERS 500 ML 125 ML IV CONT (08:36)
[2019-09-21] MEDS: FAMOTIDINE 20 MG/ISO 50 ML 20 MG/50 ML BAG 100 MG IVPB (09:31)
--- NOTE | 2019-09-21 10:32 | PC.NURSE ---
Report called to Shai MARIEE at [facility]
--- NOTE | 2019-09-21 11:08 | PM.IMHP ---
H&P: HPI History of Present Illness Chief complaint: leukocytosis epigastric pain Narrative: Chucky Ojeda is a 53 year old male admitted with acute abdominal pain in the middle the night. He was discharged yesterday afternoon after having been admitted to [facility] on September 18 for similar symptoms. He was found to have pancreatitis during his last admission, was kept NPO overnight, his lipase levels improved, he tolerated breakfast and lunch, and went at least 18 hours without pain medication, and so he was discharged to home yesterday afternoon. He agreed to follow-up with his primary care physician and the GI doctor that completed his EGD a few months ago at [facility]. He stated that he got home yesterday afternoon, had a bowl of chicken noodle soup for supper, took a nap, woke up in acute and severe epigastric pain. His pain became so severe that he became nauseous and started having episodes of vomiting. He denies any alcohol use or marijuana use yesterday or today. At ED admission, he was in moderate amount of agony and significant pain hunched over holding his abdomen with rhythmic rocking. A GI cocktail did give him some relief, IV Dilaudid did not seem to relieve his pain for long and so he is been getting 4 mg of morphine p.r.n. for pain. He was having active vomiting with his pain during his ED admission. PMH of tobacco abuse, gallbladder sludge, nephrolithiasis, C. diff and Cerna's that was discharged with acute pancreatitis of idiopathic origin yesterday. At the time of discharge he was feeling good and did not want any pain medicines on discharge. I went to see the patient early this morning, he was curled up in a position on his left side with his left hand firmly holding his center upper abdomen and his abdomen was taunt and constricted with pain. There was no bruit on auscultation, present bowel sounds throughout with hyperactive bowel sounds over the low left upper quadrant, and he pointed his pain as central upper abdominal with it starting slightly to the left upper quadrant and radiating towards the right upper quadrant. The pain is significantly worse to the touch. No flank pain and no lower abdominal pain. His last bowel movement was yesterday, it was normal, and we collected at for stool cultures. No bowel movement or emesis noted today yet. No rashes. Will continue 4mg of morphine for pain control as well as 4 of zofran, and continue his IV fluids continuously. His EKGs have all been normal sinus rhythm with no concerning ST changes, regular rate and rhythm. concerned with his level of leukocytosis with a white count that went from 10-21.3 today. His lipase is normal 147. No fevers noted , no hypotension, no chills on exam. Given his extreme pain, significant leukocytosis, repeat admissions in recent days and months, despite EGD, and recurrent nausea vomiting - will request transfer to [facility] for further specialist evaluation including GI consult. Possible diagnoses include PUD, Gastritis/esophagitis, pancreatitis, cannabis hyperemesis, Cholecystitis. Review of Systems Review of Systems: All systems reviewed & are unremarkable except as noted in HPI and below Constitutional: Constitutional: Reports as per HPI, Denies chills, Reports fatigue and Denies fever(s) Eyes: Eyes: Reports as per HPI and Reports no additional eye complaints ENT: Reports system reviewed and no additional complaints, except as documented and Reports as per HPI Cardiovascular: Cardiovascular: Reports as per HPI, Denies chest pain and Denies radiating jaw, neck or arm pain Respiratory: Respiratory: Reports as per HPI and Reports no additional respiratory complaints Gastrointestinal: Gastrointestinal: Reports as per HPI, Reports abdominal pain, Denies melena, Denies hematochezia, Denies constipation, Denies diarrhea, Reports nausea, Reports vomiting and Reports hematemesis ( not recently he said, few days ago)
--- NOTE | 2019-09-21 11:10 | PM.DS ---
DS: Discharge Diagnosis Discharge Diagnosis (1) Leukocytosis: Code(s): D72.829 - Elevated white blood cell count, unspecified Status: Acute Assessment and Plan: level of leukocytosis with a white count that went from 10 at admission to 21.3 today extreme pain repeat admissions in recent days and months no fevers noted no chills noted and no source of infection /wounds/rash Possible diagnoses include PUD, Gastritis/esophagitis, pancreatitis, cannabis hyperemesis, Cholecystitis. with his level of leukocytosis with a white count that went from 10-21.3 today. His lipase is normal 147. No fevers noted , no hypotension, no chills on exam. Given his significant leukocytosis, seems to be reactive in nature due to his level of acute pain and nausea vomiting, but MAY also be infective, ordered blood and urine cultures will request transfer to [facility] for further specialist evaluation including GI consult. monitor vital signs q.4 hours continue IV fluids continuously (2) Abdominal pain, acute, epigastric: Code(s): R10.13 - Epigastric pain Status: Acute Assessment and Plan: active pain and vomiting with his pain during his ED admission. GI cocktail did give him some relief, IV Dilaudid did not seem to relieve his pain for long and so he is been getting 4 mg of morphine p.r.n. for pain. Zofran p.r.n. keep NPO considering NG tube if patient vomits not likely constipation related as he had a normal BM yesterday considering Reglan if pain remains uncontrolled Possible diagnoses include PUD, Gastritis/esophagitis, pancreatitis, cannabis hyperemesis, Cholecystitis. not likely cardiac, as his troponins yesterday and today were normal, His EKGs have all been normal sinus rhythm with no concerning ST changes, regular rate and rhythm. concerned with his level of leukocytosis with a white count that went from 10-21.3 today. Given his extreme pain, significant leukocytosis, repeat admissions in recent days and months, despite EGD, and recurrent nausea vomiting - will request transfer to [facility] for further specialist evaluation including GI consult. (3) Liver mass: Code(s): R16.0 - Hepatomegaly, not elsewhere classified Status: Acute Assessment and Plan: liver enzymes are within normal limits total bilirubin has been normal for 3 days, September 18 and [address] scan will need to follow-up with PCP and GI (4) Gallbladder sludge: Code(s): K82.8 - Other specified diseases of gallbladder Status: Acute Assessment and Plan: elevated amylase and lipase on September 18 with admission lipase level normalized on September 19 ultrasound showed gallbladder sludge patient tolerating orals well on September 19 and discharged patient to follow-up with Dr. Mcdaniel GI physician for further testing as well as follow-up with Dr. Cox PCP lipase at this admission WNL possible diagnoses include PUD, Gastritis/esophagitis, pancreatitis, cannabis hyperemesis, Cholecystitis. DS: Summary Time Spent with Patient Time attestation: Total time spent providing and/or coordinating discharge services:>60 minutes Exam Const: General: alert Orientation/consciousness: patient oriented x3 Limitations: No altered mental status Other: in severe amount of agony and significant pain curled in position on his left side in bed on 2 occasions already this morning HENMT: Head: normal to inspection Other: normocephalic, atraumatic Eyes: Conjunctivae: conjunctivae normal Pupils: Equal, round and reactive pupils present Neck: Neck: normal visual inspection Chest: Chest palpation & inspection: normal inspection of the chest Resp: Effort & Inspection: normal respiratory effort Auscultation: clear to auscultation bilaterally Cardio: Rate: regular rate Rhythm: regular rhythm Heart sounds: no murmurs Bruits: no abdominal aortic bruits GI: Inspection:
== END 2019-09-21 12:26 | disposition short-term general hospital (02) ==
LOC: CHSED 04:33 → CHS2ND 07:26
PROVIDERS: Admitting Provider Family Medicine; Emergency Provider Family Medicine; PCP Family Medicine; Visit Provider Family Medicine
DX: R10.13 Epigastric pain (principal); D72.829 Elevated white blood cell count, unspecified; G51.0 Bell's palsy; N20.0 Calculus of kidney; K58.9 Irritable bowel syndrome, unspecified; F17.210 Nicotine dependence, cigarettes, uncomplicated; F41.9 Anxiety disorder, unspecified; K82.8 Other specified diseases of gallbladder; F32.9 Major depressive disorder, single episode, unspecified; R53.83 Other fatigue
CPT/HCPCS: 36415; 74177; 80053; 80061; 81001; 83605; 83690; 84484; 85025; 85610; 87040; 87086; 87088; 93005; 96361; 96365; 96375; 96376; 99285; A9270; G0378; J0696; J1200; J2270; J2405; J7120; Q9965

== ENCOUNTER 2019-09-21 13:00 | Observation (INO) | payer MEDICARE, MEDICAID, SELFPAY ==
--- NOTE | ~2019-09-21 | NM_ITS ---
EXAMINATION: NM hepatobiliary w pharm DATE: 09/22/2019 08:42 INDICATION: Upper abdominal pain. COMPARISON: CT abdomen and pelvis 09/21/2019 TECHNIQUE: 4.8 mCi Tc-99m mebrofenin (Choletec) was administered intravenously. Scintigraphic images of the abdomen were obtained for one hour. Then, 1.2 mcg sincalide (Kinevac) IV was administered, an d imaging was continued for 30 minutes. FINDINGS: There is normal clearance of radiotracer from the blood pool. There is homogeneous tracer u ptake by the liver. Activity progresses to the bowel and gallbladder. Gallbladder ejection fraction (GBEF) was 60%. Note that most patients with gallbladder dysfunction have GBEF < 35%, which overlaps with the broad normal range of 10-90%. IMPRESSION: 1. Normal hepatobiliary scintigraphy. Reviewed, dictated and finalized at location A.
[2019-09-21 13:00] VITALS: BP 113/64; PULSE 76; RESP 22; TEMP 36.8; O2SAT 97
[2019-09-21 13:30] VITALS: BMI 22.8
[2019-09-21 14:45] LABS: Basophils Absolute Auto 0.1 K/mm3 (0.0-0.1); Basophils Percent Auto 0.4 % (0.2-1.2); Eosinophils Absolute Auto 0.2 K/mm3 (0-0.3); Eosinophils Percent Auto 1.3 % (0-4.4); Hematocrit 42.2 % (42.0-52.0); Hemoglobin 14.5 g/dL (14.0-18.0); Immature Granulocyte Absolute 0.06 K/mm3 (0.00-0.031); Immature Granulocyte Percent A 0.4 % (0-0.5); Lymphocytes Absolute Auto 3.25 K/mm3 (0.9-3.2); Lymphocytes Percent Auto 23.6 % (18.3-44.2); Mean Corpuscular HGB Conc 34.4 g/dl (32-36); Mean Corpuscular Hemoglobin 31.9 pg (26-34); Mean Corpuscular Volume 92.7 fl (80-100); Monocytes Percent Auto 7.4 % (2.6-8.5); Neutrophils Absolute Auto 9.2 K/mm3 (1.3-6.7); Neutrophils Percent Auto 66.9 % (45.5-73.1); Platelet Count Result 308 k/mm3 (150-375); Red Blood Count 4.55 M/mm3 (4.6-6.20); Red Cell Distribution Width 13.8 % (11.5-14.5); White Blood Count 13.8 K/mm3 (4.5-10.0)
[2019-09-21 14:59] LABS: Alanine Aminotransferase 14 U/L (4-50); Albumin Level 3.3 g/dL (3.5-5.1); Alkaline Phosphatase 61 U/L (38-126); Aspartate Amino Transferase 15 U/L (17-59); Bilirubin,Total 0.3 mg/dL (0.2-1.3); Blood Urea Nitrogen 9 mg/dL (9-20); CRP < 0.5 mg/dL (<1.0); Calcium 8.2 mg/dL (8.4-10.2); Carbon Dioxide 28 mmol/L (22-30); Chloride 101 mmol/L (98-107); Estimated CRCL calculation 83 ml/min; Estimated Glomerular Filt Rate > 60; Glucose 99 mg/dL (75-110); Potassium 4.1 mmol/L (3.4-5.0); Sodium 133 mmol/L (137-145)
[2019-09-21] MEDS: MORPHINE SULFATE 2 MG/ML INJ IV PUSH ×3 (15:01→23:55)
[2019-09-21 15:19] LABS: Prothrombin Time 12.8 Seconds (11.1-14.7)
[2019-09-21 15:23] LABS: Partial Thromboplastin Time 25.7 SECONDS (22.3-36.8)
[2019-09-21 15:32] VITALS: BMI 22.8
[2019-09-21] MEDS: PANTOPRAZOLE SODIUM IV 40 MG VIAL IV PUSH (16:16)
[2019-09-21 16:57] VITALS: BP 108/70; PULSE 56; RESP 16; TEMP 36.4; O2SAT 95
[2019-09-21 20:00] VITALS: BP 108/68; PULSE 61; RESP 20; TEMP 36.8; O2SAT 96
--- NOTE | 2019-09-21 20:00 | PM.IMHP ---
H&P: HPI History of Present Illness Chief complaint: Abdominal pain. Narrative: Chucky Ojeda is a 53-year-old male smoker with history of reflux esophagitis and gastritis noted on EGD in June 2019, C diff colitis, irritable bowel syndrome, and diverticulitis who is being directly admitted to the hospitalist service from the medical floor at [facility] for further evaluation of abdominal pain. He was admitted to the [facility] after he presented to the emergency department on 09/19/2019 with abdominal pain, nausea, and vomiting. He was admitted with pancreatitis (lipase 1320) and was treated with supportive care overnight. His condition improved quickly and he was discharged the following day ?and I felt perfect when I went home.? Several hours after returning home, he ate chicken noodle soup for dinner and went to bed. He was wakened from sleep yesterday morning at approximately 01:00 with a severe pressure-like pain diffusely throughout his abdomen and nausea. The pain has been constant since that time, and as it was unrelenting he return to the emergency department in the early hours this morning. He received IV morphine and Zofran as well as IV fluid rehydration. GI cocktail did help quite a bit but he once again developed pain and nausea/vomiting and thus he was admitted for further care. Lipase was normal at 147 but he was found to have a pretty significant jump in his white blood cell count to 21.3. A CT of the abdomen pelvis was repeated given the jump in his white blood cell count, and no acute findings were noted. It is noted that gallbladder sludge was noted on previous imaging. The nurse practitioner saw the patient for admission this afternoon and felt it would be best that he is transferred here to [place] for further evaluation. With further questioning he mentions having GI problems dating back to fall 2018, and in fact he has lost quite a bit of weight (210 to 135) in less than a year. He frequently has an upset stomach and in fact tells me that sometimes he is afraid to eat as he knows he will have pain thereafter. His diet mainly consists of peanut butter, cottage cheese, and chicken noodle soup. At the time my evaluation he rates his discomfort 3/10. He reports some chills and sweats but he has not had a fever. He denies hematemesis, melena, and hematochezia. He had a colonoscopy done several years ago which was reportedly unremarkable. No chest pain or shortness of breath. Review of Systems Review of Systems: Narrative: Twelve systems were reviewed with pertinent positives and negatives as per HPI. No fever. Two weeks ago he had a head injury and suffered a concussion, with residual mild headache, occasional photophobia, and memory loss. He denies cold and flu symptoms. He is legally blind due to macular degeneration. He has been on disability for approximately 10 years due to such. He denies exertional chest pain and shortness of breath. He frequently has diarrhea due to irritable bowel syndrome. No recent antibiotic use. He denies sick contacts and recent travel. No hematuria or dysuria. Except as documented, all other systems were reviewed and are negative. [facility] Past Medical History Medical History (Updated 09/21/19 @ 22:50 by Nazia Golden PA-C) Anxiety 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 Bilateral nephrolithiasis June 22, 2019 CT of abdomen and pelvis with contrast at [facility]. C. difficile colitis (~2014) Chronic back pain Depression Diverticulitis (~05/2019) Involving the distal descending colon Gastroesophageal reflux disease Head injury Irritable bowel syndrome Macular degeneration 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 Tobacco dependence Surgical History Surgical History (Updated 09/21/19 @ 22:41 by Nazia Golden PA-C) History of appendectomy History of eye surgery As a child. Hist
[2019-09-21] MEDS: SODIUM CHLORIDE 0.9% IV 1,000 ML 100 ML IV CONT (23:49)
[2019-09-21] MEDS: BELLADONNA ALK/PHENOB ELIX 10 ML, MAG HYDROX/ALUMINUM HYD/SIMETH 30 ML, LIDOCAINE HCL 2... PO (23:51)
[2019-09-22 05:59] LABS: Basophils Absolute Auto 0.1 K/mm3 (0.0-0.1); Basophils Percent Auto 0.6 % (0.2-1.2); Eosinophils Absolute Auto 0.3 K/mm3 (0-0.3); Eosinophils Percent Auto 2.2 % (0-4.4); Hematocrit 42.2 % (42.0-52.0); Hemoglobin 14.5 g/dL (14.0-18.0); Immature Granulocyte Absolute 0.05 K/mm3 (0.00-0.031); Immature Granulocyte Percent A 0.4 % (0-0.5); Lymphocytes Absolute Auto 3.25 K/mm3 (0.9-3.2); Lymphocytes Percent Auto 28.6 % (18.3-44.2); Mean Corpuscular HGB Conc 34.4 g/dl (32-36); Mean Corpuscular Hemoglobin 31.8 pg (26-34); Mean Corpuscular Volume 92.5 fl (80-100); Mean Platelet Volume 9.9 fl (7.4-10.4); Monocytes Absolute Auto 0.8 K/mm3 (0.1-0.6); Monocytes Percent Auto 6.7 % (2.6-8.5); Neutrophils Percent Auto 61.5 % (45.5-73.1); Platelet Count Result 290 k/mm3 (150-375); Red Blood Count 4.56 M/mm3 (4.6-6.20); Red Cell Distribution Width 13.7 % (11.5-14.5); White Blood Count 11.4 K/mm3 (4.5-10.0)
[2019-09-22 06:00] VITALS: BP 111/70; PULSE 62; RESP 20; TEMP 36.8; O2SAT 92
[2019-09-22 06:06] LABS: Alanine Aminotransferase 13 U/L (4-50); Albumin Level 3.2 g/dL (3.5-5.1); Alkaline Phosphatase 58 U/L (38-126); Aspartate Amino Transferase 16 U/L (17-59); Bilirubin,Total 0.6 mg/dL (0.2-1.3); Blood Urea Nitrogen 10 mg/dL (9-20); Calcium 8.4 mg/dL (8.4-10.2); Carbon Dioxide 28 mmol/L (22-30); Chloride 104 mmol/L (98-107); Estimated CRCL calculation 74 ml/min; Estimated Glomerular Filt Rate > 60; Glucose 77 mg/dL (75-110); Lipase 95 U/L (23-300); Sodium 136 mmol/L (137-145)
[2019-09-22] MEDS: MORPHINE SULFATE 2 MG/ML INJ IV PUSH (09:04)
[2019-09-22] MEDS: PANTOPRAZOLE SODIUM IV 40 MG VIAL IV PUSH (09:06)
--- NOTE | 2019-09-22 11:21 | PM.IMPN ---
Progress Note: A&P Assessment and Plan (1) Abdominal pain: Code(s): R10.9 - Unspecified abdominal pain Status: Acute Assessment and Plan: He presented with profound and recurrent episgastric and RUQ discomfort. He was recently treated for pancretitis at [facility] and discharged / as his pain had resolved and he was tolerating PO intake well. HIDA scan was unremarkable. GI is on board and recommendations are greatly appreciated. He reports discomfort earlier this AM but his pain has resolved at this time. He may have gastritis/PUD. GI consulted for possible repeat endoscopy and recommendations are greatly apprecaited Continue protonix Continue analgesics PRN Continue zofran PRN for any associated nausea Continue to monitor (2) Leukocytosis: Code(s): D72.829 - Elevated white blood cell count, unspecified Status: Acute Assessment and Plan: WBC was elevated at 21,300 and is 11,400 today. This is likely reactive due to a stress response. HIDA scan was unremarkable. Clinically, the patient is improving. Blood cultures were obtained and are pending. No indication for antibiotics as WBC is trending down and he is improving with no evidence of acute infection (3) Gastroesophageal reflux disease: Code(s): K21.9 - Gastro-esophageal reflux disease without esophagitis Status: Acute Assessment and Plan: Reflux esophagitis and gastritis were present on EGD June 2019 done at [place] in [place]. Continue PPI Avoid NSAIDs (4) Tobacco dependence: Code(s): F17.200 - Nicotine dependence, unspecified, uncomplicated Status: Acute Assessment and Plan: The patient is a current 0.5PPD smoker. He reports that is working on smoking cessation. He declines the need for nicotine patch Continue to encourage smoking cessation (5) Weight loss: Code(s): R63.4 - Abnormal weight loss Status: Acute Assessment and Plan: The patient reports that his weight has gone from 210 to 135 in less than a year. The patient will need a colonoscopy for further evaluation. He does follow with Dr. Mcdaniel and was planning to have this accomplished outpatient. (6) Microscopic hematuria: Code(s): R31.29 - Other microscopic hematuria Status: Acute Assessment and Plan: UA reveals microscopic hematuria. He will need repeat UA outpatient and further follow-up with his PCP. Subjective Date/time seen: 09/22/19 11:21 Interval history: Mr. Ojeda is seen and examined at bedside. He reports that he is no longer having any abdominal discomfort at this time. He did report an episode of mild discomfort earlier this AM. His nausea and vomiting have resolved. He reports that his last bowel movement was 6/3 but he has not eaten much since then. He denies constipation or diarrhea. He denies melena and hematochezia. He denies lightheadedness, dizziness, and headaches. He has no complaints of chest pain or dyspnea. Review of Systems Review of Systems: All systems reviewed & are unremarkable except as noted in HPI and below Exam Narrative: Exam Narrative: General: Pleasant, cooperative, and well-developed 53 y.o. male sitting in the chair in no acute distress. HEENT: Normocephalic and atraumatic. Conjunctivae and lids are normal. EOMI. Mucous membranes are moist. Neck: Supple without lymphadenopathy or masses. Cardiac: Regular rate and rhythm. S1 and S2 normal. No murmur appreciated. Lungs: Effort normal. Lungs are clear to auscultation bilaterally. Abdomen: Bowel sounds are normoactive. Abdomen is soft, non-distended, and mildly tender to palpation of the RLQ. No organomegaly or masses appreciated. No guarding or rebound. Extremities: No lower extremity edema. Tanner negative. DP and PT 2+ bilaterally. Neurological: Alert. No focal neurological deficits noted. Speech is clear. Skin: Warm and dry. Turgor norm
[2019-09-22] MEDS: SODIUM CHLORIDE 0.9% IV 1,000 ML 100 ML IV CONT (13:51)
[2019-09-22 14:00] VITALS: BP 107/69; PULSE 62; RESP 16; TEMP 36.2; O2SAT 98
--- NOTE | 2019-09-22 14:08 | WPDGICN ---
Assessment and Plan Assessment and plan (1) Cyclical vomiting: Code(s): R11.15 - Cyclical vomiting syndrome unrelated to migraine Status: Acute Assessment and Plan: I wonder if could have cyclic vomiting, recommend to stop using marihuana will start prophylaxis with elavil at bedtime but he also needs a repeat EGD with biopsies (assess if ulcers, celiac disease, etc) because other symptoms (abdominal pain, diarrhea, weight loss, etc) CT scan a/p x2 without acute findings (2) Abdominal pain: Qualifiers: Abdominal location: generalized Qualified Code(s): R10.84 - Generalized abdominal pain Code(s): R10.9 - Unspecified abdominal pain Status: Acute Assessment and Plan: improved after medical therapy, chronic (3) Leukocytosis: Qualifiers: Leukocytosis type: unspecified Qualified Code(s): D72.829 - Elevated white blood cell count, unspecified Code(s): D72.829 - Elevated white blood cell count, unspecified Status: Acute Assessment and Plan: maybe stress response, also could be gastroenteritis but trending down, no fever he is doing much beter He can go home and I will do EGD with colonoscopy as outpatient (4) Weight loss: Code(s): R63.4 - Abnormal weight loss Status: Acute Assessment and Plan: needs also colonoscopy, assess for malignancy, microscopic colitis, ibd, etc (5) Diarrhea: Qualifiers: Diarrhea type: unspecified type Qualified Code(s): R19.7 - Diarrhea, unspecified Code(s): R19.7 - Diarrhea, unspecified Status: Acute (6) Marihuana dependence: Code(s): F12.20 - Cannabis dependence, uncomplicated Status: Acute (7) Tobacco dependence: Code(s): F17.200 - Nicotine dependence, unspecified, uncomplicated Status: Acute (8) Pancreatitis: Qualifiers: Acute pancreatitis complication: no infection or necrosis Code(s): K85.90 - Acute pancreatitis without necrosis or infection, unspecified Status: Acute Assessment and Plan: had elevated lipase but CT scan was normal, no etoh use. GI Consult Note Consult date/time: 09/22/19 14:08 Reason for consult: abdominal pain, N/V HPI: Chucky Ojeda is a 53 year old male with history of tobacco use, marihuana (about once a week for 5 years) with almost a year on intermittent episodes of nausea and vomiting, he will have several days where he feels ok but then intractable nausea and vomiting sometimes after eating. Had EGD in June 2019 elsewhere with gastritis but he is not taking ppi in regular basis, also remote history of C diff colitis and diagnosed with irritable bowel syndrome (several months with loose stools after eating, 2-3 a day). He was just recently at [facility] with abdominal pain, nausea, and vomiting, diagnosed with pancreatitis (lipase 1320) and was treated with supportive care overnight, also had CT scan 09/18 without acute findings and went home. He came back with similar symptoms to ER then transferred here. Had leukocytosis 21k, HIDA scan negative, new CT scan without any new findings. WBC is almost normal, he is feeling better. No fever. He never had a colonoscopy. He also had modified his diet because intermittent n/v with abdominal pain after eating different meals and lost seveal pounds last year. Sometimes he will get a shower after getting sick. Review of Systems Constitutional: Constitutional: Reports fatigue and Denies headache(s) Eyes: Eyes: Denies blurry vision ENT: Reports Normal hearing present, Denies headache(s) and Denies neck pain Cardiovascular: Cardiovascular: Denies chest pain and Denies dyspnea Respiratory: Respiratory: Denies dyspnea Gastrointestinal: Gastrointestinal: Reports abdominal pain, Reports nausea and Reports vomiting Genitourinary: Genitourinary: Denies dysuria Musculoskeletal: Musculoskeletal: Denies neck pain Integumentary/Breasts:
[2019-09-22] MEDS: SERTRALINE HCL 25 MG TABLET PO (15:01)
--- NOTE | 2019-09-22 15:42 | PM.DS ---
DS: Admitting Diagnosis Admitting Diagnosis Admitting Diagnosis: Unspecified abdominal pain DS: Discharge Diagnosis Discharge Diagnosis (1) Abdominal pain: Qualifiers: Abdominal location: generalized Qualified Code(s): R10.84 - Generalized abdominal pain Code(s): R10.9 - Unspecified abdominal pain Status: Acute (2) Leukocytosis: Qualifiers: Leukocytosis type: unspecified Qualified Code(s): D72.829 - Elevated white blood cell count, unspecified Code(s): D72.829 - Elevated white blood cell count, unspecified Status: Acute (3) Gastroesophageal reflux disease: Code(s): K21.9 - Gastro-esophageal reflux disease without esophagitis Status: Chronic (4) Tobacco dependence: Code(s): F17.200 - Nicotine dependence, unspecified, uncomplicated Status: Chronic (5) Weight loss: Code(s): R63.4 - Abnormal weight loss Status: Acute (6) Microscopic hematuria: Code(s): R31.29 - Other microscopic hematuria Status: Acute Assessment and Plan: Plan for repeat UA and follow-up with PCP for further evaluation. (7) Cyclical vomiting: Code(s): R11.15 - Cyclical vomiting syndrome unrelated to migraine Status: Acute (8) Marihuana dependence: Code(s): F12.20 - Cannabis dependence, uncomplicated Status: Acute DS: Summary Hospital Course Reason for hospitalization: Mr. Ojeda is a 53 y.o. male with PMH significant for current 1 PPD smoker, GERD with reflux esophagitis and gastritis on EGD June 2019, anxiety, depression, hx of C. diff colitis, and IBS who was directly admitted from the hospitalist service at the [facility] for further evaluation of abdominal pain. He was recently treated for pancreatitis at the [facility] 09[place] and he was discharged the following day after his pain resolved. He reports that after discharge, he tried to eat chicken noodle soup and woke up that night in severe pain. This prompted him to return to the ED. He was treated with IV analgesics, IV antiemetics, and GI cocktail with relief in his pain. Subsequently, he developed nausea and vomiting. Initial workup revealed WBC 21,300, Hb 15.6, Hct 44.9 and CMP was unremarkable. Lipase was 147. CT abd/pelvis was repeated and revealed no acute findings. GI was consulted He underwent HIDA scan which was normal with GBEF of 60%. GI recommended he begin amitriptyline as prophylaxis for cyclic vomiting syndrome due to marijuana use. Marijuana cessation was encouraged. The patient requested to go home as his symptoms resolved and he was tolerating his diet well. EGD and colonoscopy were recommended and he will have these performed outpatient per GI. He was advised to schedule a follow-up appointment with GI to schedule his endoscopies. He was not on a PPI prior to this admission so he was advised to begin protonix daily. UA reveals microscopic hematuria and he was given an order for a repeat UA and advised to follow-up with his PCP. He was encouraged to stop smoking tobacco and abstain from marijuana use. He will need repeat UA outpatient and further follow-up with his PCP. He was discharged in stable condition on the afternoon of 09/22/2019. Time spent discussing smoking cessation with patient: more than 10 minutes Status at Discharge Functional status at discharge: independent ambulation Overall status at discharge: patient is back to baseline Time Spent with Patient Time attestation: Total time spent providing and/or coordinating discharge services: 40 minutes Exam Narrative: Exam Narrative: Vitals at presentation: Temp Pulse Resp BP Pulse Ox 98.2 F 76 22 H 113/64 97 09/21/19 13:00 09/21/19 13:00 09/21/19 13:00 09/21/19 13:00 09/21/19 13:00 Vitals at discharge: Temp P
== END 2019-09-22 17:11 | disposition home or self-care (01) ==
PROVIDERS: Physician Assistant; Admitting Provider Internal Medicine; PCP Family Medicine; Visit Provider Family Medicine
DX: R10.84 Generalized abdominal pain (principal); D72.829 Elevated white blood cell count, unspecified; K21.9 Gastro-esophageal reflux disease without esophagitis; R11.15 Cyclical vomiting syndrome unrelated to migraine; T40.7X5A Adverse effect of cannabis (derivatives), initial encounter; F12.20 Cannabis dependence, uncomplicated; F17.210 Nicotine dependence, cigarettes, uncomplicated; R63.4 Abnormal weight loss; Z68.22 Body mass index [BMI] 22.0-22.9, adult; R31.29 Other microscopic hematuria; H35.30 Unspecified macular degeneration; H54.8 Legal blindness, as defined in USA; F32.9 Major depressive disorder, single episode, unspecified; F41.9 Anxiety disorder, unspecified; K58.0 Irritable bowel syndrome with diarrhea
CPT/HCPCS: 36415; 78227; 80053; 83690; 83735; 85025; 85610; 85730; 86140; 96361; 96374; 96375; 96376; A9270; A9537; C9113; G0378; J2270; J2805; J7030

== ENCOUNTER 2021-02-18 12:24 | Emergency (ER) | payer MEDICARE, SELFPAY ==
[2021-02-18 12:38] VITALS: BP 118/91; PULSE 76; RESP 20; TEMP 37.1; O2SAT 95
[2021-02-18 13:00] VITALS: BP 136/102; PULSE 60; RESP 20; O2SAT 92
--- NOTE | 2021-02-18 13:03 | ED.ABDPAIN ---
HPI - Abdominal Pain General Chief Complaint: Abdominal Pain Stated Complaint: ambulance Time Seen by Provider: 02/18/21 13:03 Source: patient and EMS Mode of arrival: ambulatory Limitations: no limitations History of Present Illness HPI narrative: 55-year-old male, smoker, marijuana user, with gallbladder sludge, irritable bowel syndrome, diverticulosis, dysphagia, recurrent epigastric pain is noted to have -- epigastric pain off and on for the past 3 days .-- Nausea with multiple episodes of vomiting. No fever. No hematemesis or melena. No diarrhea. The patient went to [place], sent from this hospital 3 days ago where he had a full workup including a CT scan at following which he was prescribed Carafate to add Protonix. CT revealed no evidence of colitis on abscess. Status post appendectomy. It reveals a compression of moderate to severe thickening of the wall of the esophagus compatible with esophagitis. He had a colonoscopy more than 10 years ago. He had an EGD 1 year ago which revealed gastritis. In view of his dysphagia he was scheduled to have an EGD but was never done. MD elicited complaint: abdominal pain Pertinent past history: diverticulitis, gastritis and kidney stones Onset (ago): day(s) ( Three days) Pain Consistency: intermittent Location: epigastric Severity: severe Quality: cramping Radiation: none Exacerbating factors: eating Relieving factors: nothing Associated symptoms: nausea and vomiting Treatments prior to arrival: prescription analgesics ( Carafate and Protonix) Related Data Home Medications Medication Instructions Recorded Confirmed mirtazapine 7.5 mg PO DAILY 02/18/21 02/18/21 pantoprazole [Protonix] 40 mg PO BID 02/18/21 02/18/21 sucralfate 1 g PO QID 02/18/21 02/18/21 Allergies Allergy/AdvReac Type Severity Reaction Status Date / Time No Known Allergies Allergy Verified 02/18/21 12:43 Review of Systems Review of Systems: All systems reviewed & are unremarkable except as noted in HPI and below Gastrointestinal: Gastrointestinal: Reports as per HPI 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 Bilateral nephrolithiasis June 22, 2019 [place] [facility] [place] [facility]. Biliary sludge C. 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 Marihuana dependence Nausea & vomiting Tobacco dependence Surgical History Surgical History History of appendectomy History of eye surgery As a child. History of inguinal hernia repair (~07/2013) Bilateral. Family History Family History Other Family history not known due to adoption Patient grew up in foster care and does not know his biological family or any medical history regarding such. Social History Social History Social History: The patient lives in [place] with his . They have 4 grown children. 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 He smokes 0.5 packs of cigarettes per day, but at most smoked 1.5 packs of cigarettes per day while he was driving. He uses marijuana socially. He drinks alcohol perhaps 1 time a month, and in moderation. He designates his , Sharon, as his surrogate decision maker and he wishes to be a full code. Smoking packs per day: 1 Smoking cigarettes per day: 20.0 Years smoked: 38 Smoking pack-years: 38.00 Last use: Spiritual care
[2021-02-18 13:33] VITALS: BP 137/98; PULSE 65; RESP 20; O2SAT 95
[2021-02-18] MEDS: MORPHINE SULFATE (*CRX) 4 MG/ML INJ IV PUSH (13:33)
[2021-02-18 13:40] LABS: Basophils Absolute Auto 0.03 K/mm3 (0.00-0.10); Basophils Percent Auto 0.2 % (0.0-1.0); Eosinophils Absolute Auto 0.01 K/mm3 (0.02-0.50); Eosinophils Percent Auto 0.1 % (1.0-6.0); Hematocrit 44.5 % (40.0-54.0); Hemoglobin 15.3 g/dL (14.0-18.0); Immature Granulocyte Absolute 0.06 K/mm3 (0.00-0.00); Immature Granulocyte Percent A 0.5 % (0.0-0.0); Lymphocytes Absolute Auto 1.42 K/mm3 (1.10-4.50); Mean Corpuscular HGB Conc 34.4 g/dL (32.0-36.0); Mean Corpuscular Volume 90.1 fL (78.0-102.0); Mean Platelet Volume 9.8 fl (8.7-11.0); Monocytes Absolute Auto 0.55 K/mm3 (0.10-0.90); Monocytes Percent Auto 4.3 % (2.0-11.0); Neutrophils Absolute Auto 10.8 K/mm3 (1.7-7.2); Neutrophils Percent Auto 83.9 % (50.0-70.0); Platelet Count Result 258 K/mm3 (150-420); Red Blood Count 4.94 M/mm3 (4.70-6.10); Red Cell Distribution Width 13.2 % (11.6-14.4); White Blood Count 12.9 K/mm3 (4.8-10.8)
[2021-02-18 13:53] LABS: INR 1.1; Prothrombin Time 11.5 Seconds (9.50-12.10)
[2021-02-18 13:57] LABS: Alanine Aminotransferase 21 U/L (16-63); Albumin Level 2.9 g/dL (3.4-5.0); Alkaline Phosphatase 62 U/L (46-116); Anion Gap 8 mmol/L (8-16); Aspartate Amino Transferase 10 U/L (15-37); Bilirubin Direct 0.1 mg/dL (0-0.2); Bilirubin,Total 0.5 mg/dL (0.00-1.00); Blood Urea Nitrogen 17 mg/dL (7-18); Calcium 7.9 mg/dL (8.5-10.1); Carbon Dioxide 27 mmol/L (21-32); Chloride 105 mmol/L (98-108); Estimated CRCL calculation 68 ml/min; Estimated Glomerular Filt Rate > 60; Glucose 129 mg/dL (70-99); Lipase 110 U/L (73-393); Osmolality Calculated 293 mOsm/kg (285-295); Potassium 4.1 mmol/L (3.5-5.1); Sodium 140 mmol/L (136-145); Total Protein 6.4 g/dL (6.4-8.2); Troponin I 15.6 ng/L (0.00-60.4)
[2021-02-18 14:00] VITALS: BP 145/87; PULSE 68; RESP 20; O2SAT 94
[2021-02-18 14:08] LABS: Lactic Acid Reflex 1.2 mmol/L (0.4-2.0)
[2021-02-18 14:30] VITALS: BP 125/73; PULSE 76; RESP 20; O2SAT 92
[2021-02-18 14:46] LABS: Add Urine Microscopic? YES; Appearance Urine Clear (Clear); Bilirubin Urine Negative (Negative); Blood Urine 2+ (Negative); Color Urine Yellow (Yellow); Glucose Urine UA Negative (Negative); Ketones Urine Trace (Negative); Leukocyte Esterase Ur Negative LEU/UL (Negative); Nitrate Urine Negative (Negative); Protein Urine Negative (Negative); Specific Grav Ur 1.025 (1.010-1.020); Urobilinogen Urine 0.2 mg/dL (0.2-1.0)
[2021-02-18 15:15] LABS: Bacteria Urine 1+ /hpf; Mucus Urine Few /lpf; Squamous Epithelial Cell Urine None seen /hpf (Few); WBC Urine 0-3 /hpf (0-3)
[2021-02-18 15:27] VITALS: BP 108/72; PULSE 60; RESP 20; TEMP 36.7; O2SAT 95
== END 2021-02-18 15:54 | disposition home or self-care (01) ==
PROVIDERS: Emergency Provider Internal Medicine Critical Care Medicine; PCP Family Medicine
DX: R10.13 Epigastric pain (principal); K21.9 Gastro-esophageal reflux disease without esophagitis; R31.29 Other microscopic hematuria; F17.200 Nicotine dependence, unspecified, uncomplicated
CPT/HCPCS: 36415; 80048; 80076; 81001; 83605; 83690; 84484; 85025; 85610; 96374; 99283; 99284; J2270

== ENCOUNTER 2021-04-28 00:52 | Day surgery (SDC) | payer OTHER, SELFPAY ==
[2021-04-01 09:45] VITALS: BMI 24.2
[2021-04-25 16:54] VITALS: BMI 24.2
[2021-04-28 07:40] VITALS: BP 107/76; PULSE 76; RESP 17; TEMP 36.4; O2SAT 97; BMI 23.1
[2021-04-28] MEDS: LACTATED RINGERS 1,000 ML 150 ML IV CONT (07:48)
--- NOTE | 2021-04-28 07:52 | WPDANESEPPF ---
Anes - Initial Pre Proc Eval Procedure: Operation Date: 04/28/21 12:30 Proposed Procedures p Esophagogastroduodenoscopy - Magdiel Fishman MD Date/Time: 04/28/21 07:52 Surgeon: Magdiel Fishman MD Pre Op Diagnosis: GERD, epigastric pain Patient Data Age: 55 Gender: M Height: 1.65 m Weight: 63.2 kg Last Vital Signs Temp 36.4 C L 04/28/21 07:40 Pulse 76 04/28/21 07:40 Resp 17 04/28/21 07:40 BP 107/76 04/28/21 07:40 Pulse Ox 97 04/28/21 07:40 Allergies Allergy/AdvReac Type Severity Reaction Status Date / Time No Known Allergies Allergy Verified 04/28/21 07:39 Home Medications Medication Instructions Recorded Confirmed Type pantoprazole [Protonix] 40 mg PO BID 02/18/21 04/28/21 History sucralfate 1 g PO QID 02/18/21 04/28/21 History multivitamin 1 tablet PO DAILY 04/01/21 04/28/21 History Patient hx anesthesia problems: none Family hx anesthesia problems: none Results Review: All pre-operative results and documents have been reviewed as part of the pre-operative evaluation. 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 Bilateral nephrolithiasis June 22, 2019 CT of abdomen and pelvis with contrast [place] [facility] [place]. Biliary sludge C. 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 Marihuana dependence Nausea & vomiting Tobacco dependence Surgical History Surgical History History of appendectomy History of eye surgery As a child. History of inguinal hernia repair (~07/2013) Bilateral. Family History Family History Other Family history not known due to adoption Patient grew up in foster care and does not know his biological family or any medical history regarding such. Social History Social History Social History: The patient lives in [place] with his . They have 4 grown children. 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 He smokes 0.5 packs of cigarettes per day, but at most smoked 1.5 packs of cigarettes per day while he was driving. He uses marijuana socially. He drinks alcohol perhaps 1 time a month, and in moderation. He designates his , Sharon, as his surrogate decision maker and he wishes to be a full code. Smoking packs per day: 1 Smoking cigarettes per day: 20.0 Years smoked: 40 Smoking pack-years: 40.00 Smoking status: Current every day smoker Tobacco type: cigarettes Alcohol intake: current Alcohol use details: rarely Substance use: current Substance use type: marijuana Living arrangements: with family Spiritual care concerns: No Anes - Eval Final PreProcedure Day of Procedure 04/28/21 07:52 Patient weight: normal Heart: regular rate and rhythm Lungs: clear to auscultation and normal air movement Airway: Mallampati scale class II Neurological: alert and oriented Last oral intake: >/= 8 hours ASA classification: III Emergent: no Anesthetic plan: proceed Anesthesia type and monitoring: general GIVS and standard monitoring Results Review: All pre-operative results and documents have been reviewed as part of the pre-operative evaluation. Informed Consent: The patient's anesthetic plan and its attendant risks and benefits were discussed with the patient/family/POA. Questions were solicited and answers provided to the satisfaction of the patient/family/POA.
--- NOTE | 2021-04-28 08:24 | PM.HPGS ---
History of Present Illness History of Present Illness Consent: Risks, benefits, and alternatives have been discussed and questions answered. Patient agrees to proceed with procedure. Chief complaint: GERD, epigastric pain Narrative: Chucky Ojeda is a 55 year old male with indigestion and nausea, using protonix. Still smoking tobacco and using marijuana. Never had colonoscopy. Review of Systems Constitutional: Constitutional: Denies headache(s) and Denies weakness Eyes: Eyes: Denies blurry vision ENT: Reports Normal hearing present, Denies headache(s) and Denies neck pain Cardiovascular: Cardiovascular: Denies chest pain and Denies dyspnea Respiratory: Respiratory: Denies dyspnea Gastrointestinal: Gastrointestinal: Reports no additional gastrointestinal complaints Genitourinary: Genitourinary: Denies dysuria Musculoskeletal: Musculoskeletal: Denies neck pain Integumentary/Breasts: Skin/Breast: Denies dry skin Neurologic: Reports Normal hearing present, Denies headache(s) and Denies weakness Psychiatric: Psychiatric: Denies anxiety Endocrine: Endocrine: Denies change in body appearance Hematologic/Lymphatic: Hematologic/Lymphatic: Denies easy bleeding Allergic/Immunologic: Allergic/Immunologic: Denies urticaria PMF Past Medical History Medical History (Updated 04/28/21 @ 08:26 by Magdiel Fishman MD) Anxiety 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 Bilateral nephrolithiasis June 22, 2019 [place] of [place] [facility] [place] [facility]. Biliary sludge C. difficile colitis (~2014) Chronic back pain Colon cancer screening Cyclical vomiting Depression Diarrhea Diverticulitis (~05/2019) Involving the distal descending colon Dyspepsia Gastroesophageal reflux disease Head injury Irritable bowel syndrome Macular degeneration 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 Marihuana dependence Nausea & vomiting Tobacco dependence Surgical History Surgical History History of appendectomy History of eye surgery As a child. History of inguinal hernia repair (~07/2013) Bilateral. Family History Family History Other Family history not known due to adoption Patient grew up in foster care and does not know his biological family or any medical history regarding such. Social History Social History Social History: The patient lives in [place] with his . They have 4 grown children. 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 He smokes 0.5 packs of cigarettes per day, but at most smoked 1.5 packs of cigarettes per day while he was driving. He uses marijuana socially. He drinks alcohol perhaps 1 time a month, and in moderation. He designates his , Sharon, as his surrogate decision maker and he wishes to be a full code. Smoking packs per day: 1 Smoking cigarettes per day: 20.0 Years smoked: 40 Smoking pack-years: 40.00 Smoking status: Current every day smoker Tobacco type: cigarettes Alcohol intake: current Alcohol use details: rarely Substance use: current Substance use type: marijuana Living arrangements: with family Spiritual care concerns: No Meds Home Medications and Allergies Home Medications Medication Instructions Recorded Confirmed Type pantoprazole [Protonix] 40 mg PO BID 02/18/21 04/28/21 History sucralfate 1 g PO QID 02/18/21 04/28/21 History multivitamin 1 tablet PO DAILY 04/01/21 04/28/21 History Allergies Allergy/AdvReac Type Severity Reaction Status Date / Time No Known Allergies Allergy Verified 04/28/21 07:39 Vital Signs Vital Signs - 24 hr 04/28/21 07:40 Temperature 97.5 F L Pulse Rate 76 Respiratory Rate 17
[2021-04-28 08:42] VITALS: BP 90/55; PULSE 74; RESP 18; O2SAT 98
[2021-04-28 08:52] VITALS: BP 103/74; PULSE 67; RESP 18; O2SAT 96
[2021-04-28 09:02] VITALS: BP 122/87; PULSE 67; RESP 17; O2SAT 99
--- NOTE | 2021-04-29 06:53 | WPDANESPN ---
Anes - Prog Note Post-Op Date/Time: 04/29/21 06:53 Vital Signs: Last Vital Signs Temp 97.5 F L 04/28/21 07:40 Pulse 67 04/28/21 09:02 Resp 17 04/28/21 09:02 BP 122/87 04/28/21 09:02 Pulse Ox 99 04/28/21 09:02 Pain Score (VAS): no pain I/O: Intake & Output 04/28/21 04/28/21 04/29/21 15:59 23:59 07:59 Intake Total 200 Balance 200 Post-procedural complaints: none Patient Feedback: Patient satisfied with anesthetic care.
== END 2021-04-28 09:10 | disposition home or self-care (01) ==
PROVIDERS: PCP Family Medicine; Visit Provider Internal Medicine Gastroenterology
PROC: 0DJ08ZZ Inspection of Upper Intestinal Tract, Via Natural or Artificial Opening Endoscopic (ICD-10-PCS; CPT 43235; principal; 2021-04-28 12:30)
DX: K21.9 Gastro-esophageal reflux disease without esophagitis (principal); K30 Functional dyspepsia; R11.0 Nausea; K44.9 Diaphragmatic hernia without obstruction or gangrene; K29.70 Gastritis, unspecified, without bleeding; F41.8 Other specified anxiety disorders; K57.32 Diverticulitis of large intestine without perforation or abscess without bleeding; K58.9 Irritable bowel syndrome, unspecified; H35.30 Unspecified macular degeneration; F17.210 Nicotine dependence, cigarettes, uncomplicated; F12.90 Cannabis use, unspecified, uncomplicated; G51.0 Bell's palsy
CPT/HCPCS: 43239; 88305; J2704; J7120

== ENCOUNTER 2021-06-17 12:47 | Emergency (ER) | payer OTHER, SELFPAY ==
--- NOTE | ~2021-06-17 | CT_ITS ---
EXAMINATION: CT abdomen pelvis w con DATE: 06/17/2021 14:33 INDICATION: Abdominal pain. TECHNIQUE: Computed tomography (CT) of the abdomen and pelvis was performed with 100 mL Omnipaque 350 intravenous contrast. Automated exposure control and iterative reconstruction technique were employe d. The dose-length product was 280.73 mGy-cm. COMPARISON: CT abdomen and pelvis 09/21/2019 FINDINGS: The visualized portions of the lung bases demonstrate mild atelectasis. No pleural effusion . The heart size is normal. No pericardial effusion. There is wall thickening in the distal esophagus . The liver, gallbladder, spleen, pancreas, and adrenal glands are normal. There is a 1 mm stone in r ight kidney. There is a 12 mm cyst in left kidney. There are no dilated loops of bowel. There are ines nges of appendectomy. There is a right inguinal hernia containing nonobstructed small bowel. There is a left inguinal hernia containing fat. There is diverticulosis of the colon without evidence of dive rticulitis. There are no pathologically enlarged lymph nodes. There is no free intraperitoneal fluid. There is mild thoracolumbar spondylosis. IMPRESSION: 1. Wall thickening of the distal esophagus, likely esophagitis. 2. Right inguinal hernia containing nonobstructed small bowel. 3. Left inguinal hernia containing fat. Reviewed, dictated and finalized at location A. CY VALUE CALCULATOR
--- NOTE | 2021-06-17 13:13 | ECG_ITS ---
Measurements Intervals [place] Rate: 76 P: 70 [place]: 109 QRS: 91 QRSD: 78 T: 74 QT: 377 QTc: 424 Interpretive Statements SINUS RHYTHM WITH SINUS ARRHYTHMIA WITH SHORT [place] INTERVAL BORDERLINE RIGHT AXIS DEVIATION [QRS AXIS > 90] COMPARED TO ECG 09/21/2019 02:30:17 SINUS ARRHYTHMIA NOW PRESENT Electronically Signed On 06-17-2021 15:51:15 [employer]PER[employer] by Rudy Bee M.D.
[2021-06-17 13:16] VITALS: BP 144/79; PULSE 66; RESP 16; TEMP 36.2; O2SAT 97
[2021-06-17 13:41] LABS: Hematocrit 47.4 % (40.0-54.0); Hemoglobin 16.7 g/dL (14.0-18.0); Mean Corpuscular HGB Conc 35.2 g/dL (32.0-36.0); Mean Corpuscular Hemoglobin 32.5 pg (27.0-31.0); Mean Corpuscular Volume 92.2 fL (78.0-102.0); Mean Platelet Volume 10.1 fl (8.7-11.0); Platelet Count Result 274 K/mm3 (150-420); Red Blood Count 5.14 M/mm3 (4.70-6.10); Red Cell Distribution Width 13.6 % (11.6-14.4)
[2021-06-17 13:47] LABS: Add Urine Microscopic? YES; Appearance Urine Clear (Clear); Bilirubin Urine 1+ (Negative); Blood Urine 1+ (Negative); Color Urine Yellow (Yellow); Glucose Urine UA Negative (Negative); Ketones Urine 3+ (Negative); Leukocyte Esterase Ur Negative (Negative); Nitrate Urine Negative (Negative); Protein Urine Negative (Negative); Specific Grav Ur >= 1.030 (1.010-1.020); Urobilinogen Urine 0.2 mg/dL (0.2-1.0)
[2021-06-17 13:48] LABS: White Blood Count 26.3 K/mm3 (4.8-10.8)
--- NOTE | 2021-06-17 13:48 | PC.NURSE ---
lab called with elevated result of 26.3 WBC, dr luna made aware.
[2021-06-17 13:54] LABS: Bacteria Urine None seen /hpf; WBC Urine None seen /hpf (0-3)
[2021-06-17 13:56] LABS: Band Neutrophils Percent 3 % (0-6); Basophils Percent Manual 0 % (0-1); Eosinophils Percent Manual 0 % (1-6); Lymphocytes Absolute Manual 0.78 K/mm3 (1.1-4.5); Lymphocytes Percent Manual 3 % (18-44); Monocytes Absolute Manual 0.26 K/mm3 (0.1-0.90); Monocytes Percent Manual 1 % (3-9); Neutrophils Absolute Manual 25.24 K/mm3 (1.3-6.7); Neutrophils Percent Manual 93 % (46-73); Platelet Estimate Adequate (Adequate); Total Cells Counted 100
[2021-06-17 14:02] LABS: Alanine Aminotransferase 28 U/L (16-63); Albumin Level 3.5 g/dL (3.4-5.0); Alkaline Phosphatase 71 U/L (46-116); Anion Gap 14 mmol/L (8-16); Aspartate Amino Transferase 20 U/L (15-37); Bilirubin,Total 1.4 mg/dL (0.00-1.00); Blood Urea Nitrogen 23 mg/dL (7-18); Calcium 8.8 mg/dL (8.5-10.1); Carbon Dioxide 24 mmol/L (21-32); Chloride 102 mmol/L (98-108); Estimated CRCL calculation 69 ml/min; Estimated Glomerular Filt Rate > 60; Glucose 193 mg/dL (70-99); Osmolality Calculated 298 mOsm/kg (285-295); Potassium 4.2 mmol/L (3.5-5.1); Sodium 140 mmol/L (136-145); Total Protein 7.6 g/dL (6.4-8.2); Troponin I 17.8 ng/L (0.00-60.4)
[2021-06-17 14:04] LABS: Lactic Acid Reflex 1.6 mmol/L (0.4-2.0)
[2021-06-17] MEDS: ONDANSETRON INJ 4 MG/2 ML VIAL IV PUSH (14:07)
[2021-06-17] MEDS: SODIUM CHLORIDE 0.9% IV 500 ML IV CONT (14:07)
[2021-06-17] MEDS: FAMOTIDINE 20 MG/2 ML VIAL IV PUSH (14:08)
[2021-06-17] MEDS: MORPHINE SULFATE INJ (*CRX) 10 MG/ML AMP 2 MG IV PUSH (14:35)
--- NOTE | 2021-06-17 16:53 | ED.ABDPAIN ---
HPI - Abdominal Pain General Chief Complaint: Abdominal Pain Stated Complaint: abd pain Time Seen by Provider: 06/17/21 12:49 Source: patient, RN notes reviewed and old records reviewed Mode of arrival: ambulatory Limitations: no limitations History of Present Illness MD elicited complaint: abdominal pain Pertinent past history: gastritis Onset (ago): day(s) (2) Location: epigastric Severity: mild Pain scale (0-10): 5 Quality: cramping, aching and dull Radiation: back Migration to: no migration Exacerbating factors: nothing Relieving factors: nothing Associated symptoms: nausea Related Data Allergies Allergy/AdvReac Type Severity Reaction Status Date / Time No Known Allergies Allergy Verified 07/22/21 08:37 Review of Systems Review of Systems: All systems reviewed & are unremarkable except as noted in HPI and below PMFSH Past Medical History Medical History Anxiety 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 Bilateral nephrolithiasis June 22, 2019 CT of abdomen and pelvis with contrast [place] [facility] [place]. Biliary sludge C. 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 Marihuana dependence Nausea & vomiting Tobacco dependence Surgical History Surgical History History of appendectomy History of eye surgery As a child. History of inguinal hernia repair (~07/2013) Bilateral. Family History Family History Other Family history not known due to adoption Patient grew up in foster care and does not know his biological family or any medical history regarding such. Social History Social History Social History: The patient lives in [place] with his . They have 4 grown children. 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 He smokes 0.5 packs of cigarettes per day, but at most smoked 1.5 packs of cigarettes per day while he was driving. He uses marijuana socially. He drinks alcohol perhaps 1 time a month, and in moderation. He designates his , Sharon, as his surrogate decision maker and he wishes to be a full code. Smoking packs per day: 0.5 Smoking cigarettes per day: 10.0 Years smoked: 35 Smoking pack-years: 17.50 Smoking status: Current every day smoker Tobacco type: cigarettes Alcohol intake: never Alcohol use details: rarely Substance use: current Substance use type: marijuana Living arrangements: with family Spiritual care concerns: No Exam Const: General: no acute distress and alert Nutritional Appearance: well nourished Orientation/consciousness: patient oriented x3 Limitations: no limitations HENMT: Head: normal to inspection Ears: external ears normal and TM's normal bilaterally General nose exam: Normal external nose present and Normal nares present Face and sinus: normal facial exam Mouth: Yes lip normal and Yes moist mucous membranes Eyes: Conjunctivae: conjunctivae normal Pupils: Equal, round and reactive pupils present EOM: EOMs intact bilaterally Neck: Neck: normal visual inspection and no lymphadenopathy Chest: Chest palpation & inspection: normal inspection of the chest Resp: Effort & Inspection: normal respiratory effort Auscultation: clear to auscultation bilaterally Cardio: Rate: regular rate Rhythm: regular rhythm GI: GI Palp: Yes Soft to palpation and No Tenderness to palpation present (GI) Auscult
[2021-06-17 17:23] VITALS: BP 125/57; PULSE 102; RESP 16; TEMP 36.6; O2SAT 92
== END 2021-06-17 17:33 | disposition home or self-care (01) ==
PROVIDERS: Emergency Provider Emergency Medicine
DX: K29.70 Gastritis, unspecified, without bleeding (principal); K20.90 Esophagitis, unspecified without bleeding; K21.9 Gastro-esophageal reflux disease without esophagitis; F17.200 Nicotine dependence, unspecified, uncomplicated
CPT/HCPCS: 36415; 74177; 80053; 81001; 83605; 84484; 85025; 87040; 93005; 96361; 96365; 96366; 96375; 99284; J0696; J2270; J2405; J7040; Q9967

== ENCOUNTER 2021-06-20 08:43 | Emergency (ER) | payer OTHER, SELFPAY ==
--- NOTE | ~2021-06-20 | CT_ITS ---
EXAMINATION: CT abdomen pelvis w con DATE: 06/20/2021 10:00 INDICATION: Severe abdominal pain. Nausea, vomiting, and diarrhea. TECHNIQUE: Computed tomography (CT) of the abdomen and pelvis was performed with 100 mL Omnipaque 350 intravenous contrast. Automated exposure control and iterative reconstruction technique were employe d. The dose-length product was 324.22 mGy-cm. COMPARISON: CT abdomen and pelvis 06/17/2021, 09/21/2019 FINDINGS: The visualized portions of the lung bases demonstrate mild atelectasis. There is a chronic 5 mm nodule in right middle lobe, likely benign. No pleural effusion. The heart size is normal. No pe ricardial effusion. There is a small sliding hiatal hernia. The liver, gallbladder, spleen, pancreas, adrenal glands, and right kidney are normal. There are cysts in left kidney measuring up to 10 mm. T here are bilateral inguinal hernias containing fat. There is diverticulosis of the colon without evid ence of diverticulitis. There are changes of appendectomy. There are no pathologically enlarged lymph nodes. There is no free intraperitoneal fluid. There is a small focus old fat necrosis in right ante rior abdominal wall. There is mild thoracolumbar spondylosis. IMPRESSION: 1. Small sliding hiatal hernia. 2. Bilateral inguinal hernias containing fat. Reviewed, dictated and finalized at location A. MONITOR
[2021-06-20 08:43] VITALS: BP 137/89; PULSE 60; RESP 16; TEMP 35.8; O2SAT 100
[2021-06-20] MEDS: ONDANSETRON INJ 4 MG/2 ML VIAL IV PUSH (08:50)
[2021-06-20] MEDS: SODIUM CHLORIDE 0.9% IV 1,000 ML 999 ML IV CONT (08:50)
[2021-06-20] MEDS: PANTOPRAZOLE SODIUM IV 40 MG VIAL IV PUSH (09:00)
[2021-06-20] MEDS: MORPHINE SULFATE (*CRX) 4 MG/ML INJ 2 MG IV PUSH (09:03)
[2021-06-20 09:15] LABS: Basophils Absolute Auto 0.04 K/mm3 (0.00-0.10); Basophils Percent Auto 0.4 % (0.0-1.0); Hemoglobin 15.8 g/dL (14.0-18.0); Immature Granulocyte Absolute 0.05 K/mm3 (0.00-0.00); Immature Granulocyte Percent A 0.5 % (0.0-0.0); Lymphocytes Absolute Auto 1.44 K/mm3 (1.10-4.50); Lymphocytes Percent Auto 14.2 % (18.0-42.0); Mean Corpuscular HGB Conc 34.3 g/dL (32.0-36.0); Mean Corpuscular Hemoglobin 31.9 pg (27.0-31.0); Mean Corpuscular Volume 92.9 fL (78.0-102.0); Mean Platelet Volume 9.7 fl (8.7-11.0); Monocytes Percent Auto 4.9 % (2.0-11.0); Platelet Count Result 240 K/mm3 (150-420); Red Blood Count 4.95 M/mm3 (4.70-6.10); Red Cell Distribution Width 13.3 % (11.6-14.4); White Blood Count 10.1 K/mm3 (4.8-10.8)
[2021-06-20 09:33] LABS: Alanine Aminotransferase 24 U/L (16-63); Albumin Level 2.9 g/dL (3.4-5.0); Alkaline Phosphatase 52 U/L (46-116); Anion Gap 9 mmol/L (8-16); Aspartate Amino Transferase 13 U/L (15-37); Bilirubin,Total 0.4 mg/dL (0.00-1.00); Blood Urea Nitrogen 14 mg/dL (7-18); Carbon Dioxide 27 mmol/L (21-32); Chloride 106 mmol/L (98-108); Estimated CRCL calculation 72 ml/min; Estimated Glomerular Filt Rate > 60; Glucose 147 mg/dL (70-99); Lipase 42 U/L (73-393); Osmolality Calculated 297 mOsm/kg (285-295); Potassium 3.9 mmol/L (3.5-5.1); Sodium 142 mmol/L (136-145); Total Protein 6.5 g/dL (6.4-8.2)
[2021-06-20 09:34] LABS: Ethanol < 3 mg/dL (0-6)
[2021-06-20 09:35] LABS: Lactic Acid Reflex 1.2 mmol/L (0.4-2.0)
--- NOTE | 2021-06-20 09:39 | PC.NURSE ---
PT IS CURRENTLY RESTING ON STRETCHER. PT REPORTS PAIN HAS IMPROVED. PT IS AWAITING RESULTS AND CT AT THIS TIME. WILL CONTINUE TO MONITOR.
[2021-06-20 10:08] VITALS: BP 134/89; PULSE 56; RESP 14; O2SAT 100
[2021-06-20] MEDS: MAG HYDROX/ALUMINUM HYD/SIMETH 30 ML, PHENobarb/HYOSCY/ATROPINE/SCOP 32.4 MG, LIDOCAINE... PO (10:31)
--- NOTE | 2021-06-20 11:08 | ED.ABDPAIN ---
HPI - Abdominal Pain General Chief Complaint: Abdominal Pain Stated Complaint: ABD PAIN Time Seen by Provider: 06/20/21 08:45 Source: patient and RN notes reviewed Mode of arrival: wheelchair Limitations: no limitations History of Present Illness MD elicited complaint: abdominal pain Pertinent past history: gastritis Onset (ago): hour(s) (4) Pain Consistency: constant Location: epigastric and suprapubic Severity: moderate Pain scale (0-10): 7 Quality: cramping, aching, dull and burning Radiation: none Migration to: no migration Exacerbating factors: nothing Relieving factors: nothing Associated symptoms: nausea and vomiting Related Data Allergies Allergy/AdvReac Type Severity Reaction Status Date / Time No Known Allergies Allergy Verified 06/20/21 08:48 Review of Systems Review of Systems: All systems reviewed & are unremarkable except as noted in HPI and below Gastrointestinal: Gastrointestinal: Reports abdominal pain, Reports heartburn, Reports nausea and Reports vomiting PMFSH Past Medical History Medical History Anxiety 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 Bilateral nephrolithiasis June 22, 2019 CT of abdomen and pelvis with contrast at [facility] in [facility]. Biliary sludge C. 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 Marihuana dependence Nausea & vomiting Tobacco dependence Surgical History Surgical History History of appendectomy History of eye surgery As a child. History of inguinal hernia repair (~07/2013) Bilateral. Family History Family History Other Family history not known due to adoption Patient grew up in foster care and does not know his biological family or any medical history regarding such. Social History Social History Social History: The patient lives in [place] with his . They have 4 grown children. 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 He smokes 0.5 packs of cigarettes per day, but at most smoked 1.5 packs of cigarettes per day while he was driving. He uses marijuana socially. He drinks alcohol perhaps 1 time a month, and in moderation. He designates his , Sharon, as his surrogate decision maker and he wishes to be a full code. Smoking packs per day: 1 Smoking cigarettes per day: 20.0 Years smoked: 40 Smoking pack-years: 40.00 Smoking status: Current every day smoker Tobacco type: cigarettes Alcohol intake: current Alcohol use details: rarely Substance use: current Substance use type: marijuana Spiritual care concerns: No Exam Const: General: no acute distress, alert and ill appearing Nutritional Appearance: thin Orientation/consciousness: patient oriented x3 HENMT: Head: normal to inspection Ears: external ears normal, TM's normal bilaterally and EAC's normal General nose exam: Normal external nose present Face and sinus: normal facial exam and sinuses nontender Mouth: Yes lip normal and Yes moist mucous membranes Eyes: Conjunctivae: conjunctivae normal Pupils: Equal, round and reactive pupils present EOM: EOMs intact bilaterally Neck: Neck: normal visual inspection and no lymphadenopathy Other: supple. Chest: Chest palpation & inspection: normal inspection of the chest Resp: Effort & Inspection: normal respiratory effort Auscultation: clear to auscultation bilaterally Cardio:
[2021-06-20 11:57] VITALS: BP 148/80; PULSE 58; RESP 16; TEMP 36; O2SAT 94
== END 2021-06-20 12:00 | disposition home or self-care (01) ==
PROVIDERS: Emergency Provider Emergency Medicine
DX: R10.9 Unspecified abdominal pain (principal); K29.70 Gastritis, unspecified, without bleeding
CPT/HCPCS: 36415; 74177; 80053; 80307; 83605; 83690; 85025; 96361; 96374; 96375; 99284; A9270; C9113; J2270; J2405; J7030; Q9967

== ENCOUNTER 2021-06-22 10:54 | Emergency (ER) | payer OTHER, SELFPAY ==
[2021-06-22 10:59] VITALS: BP 150/100; PULSE 68; RESP 16; TEMP 36.3; O2SAT 99
[2021-06-22 11:19] LABS: Basophils Percent Auto 0.3 % (0.2-1.2); Eosinophils Percent Auto 0.2 % (0-4.4); Hematocrit 45.6 % (42.0-52.0); Immature Granulocyte Absolute 0.07 K/mm3 (0.00-0.031); Immature Granulocyte Percent A 0.6 % (0-0.5); Lymphocytes Absolute Auto 1.35 K/mm3 (0.9-3.2); Lymphocytes Percent Auto 10.7 % (18.3-44.2); Mean Corpuscular HGB Conc 35.1 g/dl (32-36); Mean Corpuscular Hemoglobin 32.5 pg (26-34); Mean Corpuscular Volume 92.5 fl (80-100); Mean Platelet Volume 9.7 fl (7.4-10.4); Monocytes Absolute Auto 0.4 K/mm3 (0.1-0.6); Monocytes Percent Auto 2.9 % (2.6-8.5); Neutrophils Absolute Auto 10.7 K/mm3 (1.3-6.7); Neutrophils Percent Auto 85.3 % (45.5-73.1); Platelet Count Result 283 k/mm3 (150-375); Red Blood Count 4.93 M/mm3 (4.6-6.20); Red Cell Distribution Width 13.5 % (11.5-14.5); White Blood Count 12.6 K/mm3 (4.5-10.0)
[2021-06-22 11:39] LABS: Add Urine Microscopic? YES; Appearance Urine Cloudy (Clear); Bilirubin Urine Negative (Negative); Blood Urine 1+ (Negative); Color Urine Yellow (Yellow); Glucose Urine UA Negative (Negative); Ketones Urine Trace mg/dL (Negative); Leukocyte Esterase Ur Negative LEU/UL (Negative); Mucus Urine Rare /lpf; Nitrate Urine Negative (Negative); Protein Urine Negative (Negative); Squamous Epithelial Cell Urine Rare /hpf (Few); Urobilinogen Urine Negative mg/dL (<2.0); WBC Urine 0-3 /hpf
[2021-06-22 11:47] LABS: Alanine Aminotransferase 23 U/L (4-50); Albumin Level 3.8 g/dL (3.5-5.1); Alkaline Phosphatase 56 U/L (38-126); Anion Gap 4 mmol/L (8-16); Aspartate Amino Transferase 27 U/L (17-59); Bilirubin,Total 0.7 mg/dL (0.2-1.3); Blood Urea Nitrogen 13 mg/dL (9-20); Calcium 8.4 mg/dL (8.4-10.2); Carbon Dioxide 28 mmol/L (22-30); Chloride 104 mmol/L (98-107); Estimated CRCL calculation 91 ml/min; Estimated Glomerular Filt Rate > 60; Glucose 137 mg/dL (65-110); Lipase 38 U/L (23-300); Potassium 3.9 mmol/L (3.4-5.0); Sodium 136 mmol/L (137-145)
--- NOTE | 2021-06-22 12:08 | ED.ABDPAIN ---
HPI - Abdominal Pain General Chief Complaint: Abdominal Pain Stated Complaint: N/V/D [id number] Time Seen by Provider: 06/22/21 11:54 Source: patient Mode of arrival: ambulatory Limitations: no limitations History of Present Illness HPI narrative: This is a 55-year-old male that presents to the emergency department for abdominal pain, nausea vomiting and diarrhea. Ongoing over the last week. He has been seen at [facility] twice for this. He was started on reflux medications and an antibiotic. He has been taking these with little relief. His jewel staker is Dr. Mera. Reports he has had dark stools. Denies fever or dysuria. Related Data Allergies Allergy/AdvReac Type Severity Reaction Status Date / Time No Known Allergies Allergy Verified 06/20/21 08:48 Review of Systems Review of Systems: CONSTITUTIONAL: Denies fever GASTROINTESTINAL: Reports abdominal pain, nausea, vomiting, and diarrhea. 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 Bilateral nephrolithiasis June 22, 2019 CT of abdomen and pelvis with contrast at [facility] in [facility]. Biliary sludge C. 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 Marihuana dependence Nausea & vomiting Tobacco dependence Surgical History Surgical History History of appendectomy History of eye surgery As a child. History of inguinal hernia repair (~07/2013) Bilateral. Family History Family History Other Family history not known due to adoption Patient grew up in foster care and does not know his biological family or any medical history regarding such. Social History Social History Social History: The patient lives in [place] with his . They have 4 grown children. 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 He smokes 0.5 packs of cigarettes per day, but at most smoked 1.5 packs of cigarettes per day while he was driving. He uses marijuana socially. He drinks alcohol perhaps 1 time a month, and in moderation. He designates his , Sharon, as his surrogate decision maker and he wishes to be a full code. Smoking packs per day: 1 Smoking cigarettes per day: 20.0 Years smoked: 40 Smoking pack-years: 40.00 Smoking status: Current every day smoker Tobacco type: cigarettes Alcohol intake: current Alcohol use details: rarely Substance use: current Substance use type: marijuana Spiritual care concerns: No Exam Narrative: GENERAL: Well-appearing, well-nourished, and in no acute distress. HEAD: Normocephalic, atraumatic. EYES: EOMI. CHEST: Clear to auscultation. No respiratory distress. No wheezes rales or rhonchi HEART: Regular rate and rhythm. No murmur heard. Normal peripheral pulses. ABDOMEN: Soft, nondistended, normal active bowel sounds. Mild tenderness to palpation throughout the abdomen, without guarding. No CVA tenderness EXTREMITIES: Normal range of motion. No edema. SKIN: Warm, dry, no rash. NEURO: No focal deficits. Alert and oriented x3. PSYCH: Normal mood and affect Course Consultations Consultation #1: Spoke with Dr. Mera about patient and work-up. Will start patient on Carafate. Patient is to follow-up in clinic. Date: 06/22/21 Juan A
[2021-06-22] MEDS: PANTOPRAZOLE SODIUM IV 40 MG VIAL IV PUSH (12:26)
[2021-06-22] MEDS: METOCLOPRAMIDE HCL INJ 10 MG/2 ML VIAL IV PUSH (12:27)
[2021-06-22] MEDS: diphenhydrAMINE HCl INJ 50 MG/ML VIAL 25 MG IV PUSH (12:27)
[2021-06-22] MEDS: SODIUM CHLORIDE 0.9% IV 1,000 ML 999 ML IV CONT (12:28)
--- NOTE | 2021-06-22 14:14 | PC.NURSE ---
Pt given anup crackers, water and applesauce for PO challenge
[2021-06-22 14:49] VITALS: BP 107/71; PULSE 63; RESP 18; O2SAT 95
== END 2021-06-22 14:50 | disposition home or self-care (01) ==
PROVIDERS: Physician Assistant; Emergency Provider Emergency Medicine
DX: R10.9 Unspecified abdominal pain (principal); K21.00 Gastro-esophageal reflux disease with esophagitis, without bleeding; K58.9 Irritable bowel syndrome, unspecified; H35.30 Unspecified macular degeneration; H54.8 Legal blindness, as defined in USA; F17.210 Nicotine dependence, cigarettes, uncomplicated
CPT/HCPCS: 36415; 80053; 81001; 83690; 85025; 96361; 96365; 96375; 99284; C9113; J0131; J1200; J2765; J7030

== ENCOUNTER 2021-07-22 00:08 | Day surgery (SDC) | payer OTHER, SELFPAY ==
[2021-07-14 13:32] VITALS: BMI 24.9
[2021-07-22 08:38] VITALS: BP 115/73; PULSE 74; RESP 20; TEMP 36.7; O2SAT 98; BMI 23.1
--- NOTE | 2021-07-22 08:40 | SUR.PREOP ---
pt attempted to be contacted multiple times, as well as team truck driver with no success. LVM x 2. pt arrival time was scheduled at 0730, pt arrived at 0830. pt stated he had issues with his team truck driver.pt is legally blind but states he can see some out of his right eye. RN reviewed consent with pt. pt had no issues signing consent.
[2021-07-22] MEDS: LACTATED RINGERS 1,000 ML 150 ML IV CONT (08:52)
--- NOTE | 2021-07-22 09:20 | PM.HPGS ---
History of Present Illness History of Present Illness Consent: Risks, benefits, and alternatives have been discussed and questions answered. Patient agrees to proceed with procedure. Chief complaint: neoplasm screening Narrative: Chucky Ojeda is a 55 year old male here for first screening colonoscopy. Also last few weeks ago with intermittent abdominal pain. Had EGD earlier this year only gastritis. CT scan a/p negative. Review of Systems Constitutional: Constitutional: Denies headache(s) and Denies weakness Eyes: Eyes: Denies blurry vision ENT: Reports Normal hearing present, Denies headache(s) and Denies neck pain Cardiovascular: Cardiovascular: Denies chest pain and Denies dyspnea Respiratory: Respiratory: Denies dyspnea Gastrointestinal: Gastrointestinal: Reports no additional gastrointestinal complaints Genitourinary: Genitourinary: Denies dysuria Musculoskeletal: Musculoskeletal: Denies neck pain Integumentary/Breasts: Skin/Breast: Denies dry skin Neurologic: Reports Normal hearing present, Denies headache(s) and Denies weakness Psychiatric: Psychiatric: Denies anxiety Endocrine: Endocrine: Denies change in body appearance Hematologic/Lymphatic: Hematologic/Lymphatic: Denies easy bleeding Allergic/Immunologic: Allergic/Immunologic: Denies urticaria PMFSH Past Medical History Medical History Anxiety 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 Bilateral nephrolithiasis June 22, 2019 CT of abdomen and pelvis with contrast at [facility]. Biliary sludge C. 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 Marihuana dependence Nausea & vomiting Tobacco dependence Surgical History Surgical History History of appendectomy History of eye surgery As a child. History of inguinal hernia repair (~07/2013) Bilateral. Family History Family History Other Family history not known due to adoption Patient grew up in foster care and does not know his biological family or any medical history regarding such. Social History Social History Social History: The patient lives in [place] with his . They have 4 grown children. 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 He smokes 0.5 packs of cigarettes per day, but at most smoked 1.5 packs of cigarettes per day while he was driving. He uses marijuana socially. He drinks alcohol perhaps 1 time a month, and in moderation. He designates his , Sharon, as his surrogate decision maker and he wishes to be a full code. Smoking packs per day: 0.5 Smoking cigarettes per day: 10.0 Years smoked: 35 Smoking pack-years: 17.50 Smoking status: Current every day smoker Tobacco type: cigarettes Alcohol intake: never Alcohol use details: rarely Substance use: current Substance use type: marijuana Living arrangements: with family Spiritual care concerns: No Meds Home Medications and Allergies Home Medications Medication Instructions Recorded Confirmed Type acetaminophen [Tylenol] 650 mg PO Q8H #20 cap 06/17/21 07/14/21 Rx omeprazole magnesium [Prilosec OTC] 20 mg PO BID #20 tablet 06/17/21 07/14/21 Rx ondansetron 4 mg PO Q8H PRN #20 tablet 06/17/21 07/14/21 Rx calcium carbonate [Tums] 500 mg PO BID #30 tablet 06/20/21 07/14/21 Rx ibuprofen 800 mg PO TID #20 tablet 06/20/21 07/14/21 Rx sucralfate 1
--- NOTE | 2021-07-22 09:21 | WPDANESEPPF ---
Anes - Initial Pre Proc Eval Procedure: Operation Date: 07/22/21 09:00 Proposed Procedures p Screening Colonoscopy - Magdiel Fishman MD Date/Time: 07/22/21 09:21 Surgeon: Magdiel Fishman MD Pre Op Diagnosis: neoplasm screening Patient Data Age: 55 Gender: M Height: 1.65 m Weight: 63.2 kg Last Vital Signs Temp 98.1 F 07/22/21 08:38 Pulse 74 07/22/21 08:38 Resp 20 07/22/21 08:38 BP 115/73 07/22/21 08:38 Pulse Ox 98 07/22/21 08:38 Allergies Allergy/AdvReac Type Severity Reaction Status Date / Time No Known Allergies Allergy Verified 07/22/21 08:37 Home Medications Medication Instructions Recorded Confirmed Type acetaminophen [Tylenol] 650 mg PO Q8H #20 cap 06/17/21 07/14/21 Rx omeprazole magnesium [Prilosec OTC] 20 mg PO BID #20 tablet 06/17/21 07/14/21 Rx ondansetron 4 mg PO Q8H PRN #20 tablet 06/17/21 07/14/21 Rx calcium carbonate [Tums] 500 mg PO BID #30 tablet 06/20/21 07/14/21 Rx ibuprofen 800 mg PO TID #20 tablet 06/20/21 07/14/21 Rx sucralfate 1 g PO BID 7 Days #14 tablet 06/22/21 07/14/21 Rx Patient hx anesthesia problems: none Family hx anesthesia problems: none Results Review: All pre-operative results and documents have been reviewed as part of the pre-operative evaluation. 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 Bilateral nephrolithiasis June 22, 2019 CT of abdomen and pelvis with contrast at [facility] in [facility]. Biliary sludge C. 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 Marihuana dependence Nausea & vomiting Tobacco dependence Surgical History Surgical History History of appendectomy History of eye surgery As a child. History of inguinal hernia repair (~07/2013) Bilateral. Family History Family History Other Family history not known due to adoption Patient grew up in foster care and does not know his biological family or any medical history regarding such. Social History Social History Social History: The patient lives in [place] with his . They have 4 grown children. 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 He smokes 0.5 packs of cigarettes per day, but at most smoked 1.5 packs of cigarettes per day while he was driving. He uses marijuana socially. He drinks alcohol perhaps 1 time a month, and in moderation. He designates his , Shraon, as his surrogate decision maker and he wishes to be a full code. Smoking packs per day: 0.5 Smoking cigarettes per day: 10.0 Years smoked: 35 Smoking pack-years: 17.50 Smoking status: Current every day smoker Tobacco type: cigarettes Alcohol intake: never Alcohol use details: rarely Substance use: current Substance use type: marijuana Living arrangements: with family Spiritual care concerns: No Anes - Eval Final PreProcedure Day of Procedure 07/22/21 09:21 Patient weight: normal Heart: regular rate and rhythm Lungs: clear to auscultation Airway: Mallampati scale class II Neurological: alert and oriented Last oral intake: >/= 8 hours ASA classification: III Emergent: no Anesthetic plan: proceed Anesthesia type and monitoring: general GIVS and standard monitoring Results Review: All pre-operative results and documents have been reviewed as part of the pre-op
[2021-07-22 09:40] VITALS: BP 98/61; PULSE 78; RESP 18; O2SAT 94
[2021-07-22 09:50] VITALS: BP 94/68; PULSE 62; RESP 18; O2SAT 94
[2021-07-22 10:00] VITALS: BP 110/73; PULSE 67; RESP 20; O2SAT 98
== END 2021-07-22 10:10 | disposition home or self-care (01) ==
PROVIDERS: Visit Provider Internal Medicine Gastroenterology
PROC: 0DJD8ZZ Inspection of Lower Intestinal Tract, Via Natural or Artificial Opening Endoscopic (ICD-10-PCS; CPT 45378; principal; 2021-07-22 09:00)
DX: Z12.11 Encounter for screening for malignant neoplasm of colon (principal); D12.4 Benign neoplasm of descending colon; D12.3 Benign neoplasm of transverse colon; K57.30 Diverticulosis of large intestine without perforation or abscess without bleeding; K64.8 Other hemorrhoids; K62.1 Rectal polyp; G51.0 Bell's palsy; F41.8 Other specified anxiety disorders; K58.9 Irritable bowel syndrome, unspecified; F12.90 Cannabis use, unspecified, uncomplicated; R10.13 Epigastric pain; K21.00 Gastro-esophageal reflux disease with esophagitis, without bleeding; K29.70 Gastritis, unspecified, without bleeding; H35.30 Unspecified macular degeneration; F17.210 Nicotine dependence, cigarettes, uncomplicated
CPT/HCPCS: 45385; 45380; 88305; J2704; J7120

== ENCOUNTER 2021-08-29 05:36 | Emergency (ER) | payer MEDICARE, MEDICAID, SELFPAY ==
[2021-08-29] VITALS (9 sets, daily range): BP systolic 131–135; BP diastolic 61–95; PULSE 67–73; RESP 16–20; TEMP 36.6–37.1; O2SAT 91–100
--- NOTE | ~2021-08-29 | CT_ITS ---
EXAMINATION: CT abdomen pelvis w con INDICATION: Abdominal pain TECHNIQUE: Computed tomographic images of the abdomen and pelvis were obtained after the administrati on of 100 cc of Omnipaque 350 intravenous contrast. The dose-length product (DLP) was 278.74 mGy-cm. Automated exposure control and iterative reconstruction technique were employed. COMPARISON: 06/20/2021 FINDINGS: Minimal dependent atelectasis is present in the lung bases. The heart size is normal. There is a chronic 5 mm nodule of the right middle lobe. The liver, spleen, pancreas, gallbladder, and adr enal glands are normal. The right kidney is unremarkable. Cysts of the left kidney measure up to 9 mm . No pathologically enlarged abdominal or pelvic lymph nodes are identified. There is no free intrape ritoneal gas or evidence of bowel obstruction. Changes of appendectomy are noted. There is a left ing uinal hernia containing fat. There is a right inguinal hernia containing a short segment of nonobstru cted small bowel. IMPRESSION: 1. Right inguinal hernia containing a short segment of nonobstructed small bowel. Fat-containing left inguinal hernia. Reviewed, dictated and finalized at location A. IMPRESSION: 1. Right inguinal hernia containing a short segment of nonobstructed small jazmyn l. Fat-containing left inguinal hernia.
--- NOTE | 2021-08-29 05:48 | ECG_ITS ---
Measurements Intervals [place] Rate: 61 P: 26 [place]: 125 QRS: 92 QRSD: 88 T: 58 QT: 393 QTc: 396 Interpretive Statements SINUS RHYTHM RIGHT AXIS DEVIATION DELAYED PRECORDIAL R/S TRANSITION MINIMAL Q WAVES- INFERIOR LEADS BASELINE ARTIFACT- I, II, III, AVR, AVL, AVF, V1-V6 BORDERLINE ECG Electronically Signed On 08-29-2021 6:35:55 CDT by Brooks Blandon D.O.
[2021-08-29] MEDS: SODIUM CHLORIDE 0.9% IV 1,000 ML 999 ML IV CONT (05:50)
--- NOTE | 2021-08-29 05:58 | ED.ABDPAIN ---
HPI - Abdominal Pain General Chief Complaint: Abdominal Pain <Yang Underwood MD - Last Filed: 08/29/21 06:03> Stated Complaint: Stomach Pain <Yang Underwood MD - Last Filed: 08/29/21 06:03> Time Seen by Provider: 08/29/21 07:09 <Yang Underwood MD - Last Filed: 08/29/21 06:03> Source: patient <Yang Underwood MD - Last Filed: 08/29/21 06:03> patient, RN notes reviewed and old records reviewed <Dary Mason MD - Last Filed: 09/01/21 07:19> Mode of arrival: ambulatory <Yang Underwood MD - Last Filed: 08/29/21 06:03> ambulatory <Dary Mason MD - Last Filed: 09/01/21 07:19> Limitations: no limitations <Yang Underwood MD - Last Filed: 08/29/21 06:03> no limitations <Dary Mason MD - Last Filed: 09/01/21 07:19> History of Present Illness HPI narrative: This is a 55-year-old gentleman with a history of GERD, presents with some abdominal pain the patient is tearful pain is described as aching and a fullness diffuse with nausea episodes of vomiting with diarrhea, his vitals are stable patient is afebrile there is no chest pain no shortness of breath no flank pain. <Yang Underwood MD - Last Filed: 08/29/21 06:03> MD elicited complaint: abdominal pain <Yang Underwood MD - Last Filed: 08/29/21 06:03> abdominal pain <Dary Mason MD - Last Filed: 09/01/21 07:19> Onset (ago): hour(s) <Yang Underwood MD - Last Filed: 08/29/21 06:03> hour(s) (5) <Dary Mason MD - Last Filed: 09/01/21 07:19> Pain Consistency: constant <Yang Underwood MD - Last Filed: 08/29/21 06:03> constant <Dary Mason MD - Last Filed: 09/01/21 07:19> Location: diffuse <Yang Underwood MD - Last Filed: 08/29/21 06:03> diffuse <Dary Mason MD - Last Filed: 09/01/21 07:19> Severity: moderate <Yang Underwood MD - Last Filed: 08/29/21 06:03> moderate <Dary Mason MD - Last Filed: 09/01/21 07:19> Pain scale (0-10): 6 <Yang Underwood MD - Last Filed: 08/29/21 06:03> Quality: aching <Yang Underwood MD - Last Filed: 08/29/21 06:03> cramping and aching <Dary Mason MD - Last Filed: 09/01/21 07:19> Radiation: none <Dary Mason MD - Last Filed: 09/01/21 07:19> Migration to: no migration <Dary Mason MD - Last Filed: 09/01/21 07:19> Exacerbating factors: nothing <Yang Underwood MD - Last Filed: 08/29/21 06:03> nothing <Dary Mason MD - Last Filed: 09/01/21 07:19> Relieving factors: nothing <Yang Underwood MD - Last Filed: 08/29/21 06:03> nothing <Dary Mason MD - Last Filed: 09/01/21 07:19> Associated symptoms: nausea, vomiting and diarrhea <Yang Underwood MD - Last Filed: 08/29/21 06:03> nausea <Dary Mason MD - Last Filed: 09/01/21 07:19> Related Data Allergies/Adverse Reactions: Allergies Allergy/AdvReac Type Severity Reaction Status Date / Time No Known Allergies Allergy Verified 08/29/21 05:38 <Yang Underwood MD - Last Filed: 08/29/21 06:03> Review of Systems Review of Systems: All systems reviewed & are unremarkable except as noted in HPI and below <Yang Underwood MD - Last Filed: 08/29/21 06:03> PMFSH Past Medical History Medical History: Medical History Anxiety 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 Bilateral nephrolithiasis June 22, 2019 CT of abdomen and pelvis with contrast at [facility] in [facility]. Biliary sludge C. difficile colitis (~2014) Chronic back pain Colon cancer screening Cyclical vomiting Depression Diarrhea Diverticulitis (~05/2019) Involving the distal descending colon Dyspepsia Esophagitis Gastritis Gastroesophageal reflux disease Head injury Irritable bowel syndrome Macular de
[2021-08-29] MEDS: MORPHINE SULFATE (*CRX) 4 MG/ML INJ IV PUSH (06:00)
[2021-08-29] MEDS: ONDANSETRON INJ 4 MG/2 ML VIAL IV PUSH ×2 (06:03→10:06)
[2021-08-29] MEDS: PANTOPRAZOLE SODIUM IV 40 MG VIAL 80 MG IV PUSH (06:04)
[2021-08-29 06:26] LABS: Basophils Absolute Auto 0.08 K/mm3 (0.00-0.10); Basophils Percent Auto 0.5 % (0.0-1.0); Eosinophils Absolute Auto 0.26 K/mm3 (0.02-0.50); Eosinophils Percent Auto 1.7 % (1.0-6.0); Hematocrit 42.7 % (40.0-54.0); Hemoglobin 14.6 g/dL (14.0-18.0); Immature Granulocyte Absolute 0.06 K/mm3 (0.00-0.00); Immature Granulocyte Percent A 0.4 % (0.0-0.0); Lymphocytes Percent Auto 9.9 % (18.0-42.0); Mean Corpuscular HGB Conc 34.2 g/dL (32.0-36.0); Mean Corpuscular Volume 93.6 fL (78.0-102.0); Mean Platelet Volume 10.2 fl (8.7-11.0); Monocytes Absolute Auto 0.69 K/mm3 (0.10-0.90); Monocytes Percent Auto 4.5 % (2.0-11.0); Neutrophils Absolute Auto 12.6 K/mm3 (1.7-7.2); Platelet Count Result 237 K/mm3 (150-420); Red Blood Count 4.56 M/mm3 (4.70-6.10); Red Cell Distribution Width 13.1 % (11.6-14.4); White Blood Count 15.2 K/mm3 (4.8-10.8)
--- NOTE | 2021-08-29 06:30 | PC.NURSE ---
PT REPORTS PAIN HAS IMPROVED, WARM BLANKET PROVIDED, LIGHTS ARE OFF AND PT IS RESTING ON STRETCHER. URINAL HAS BEEN PROVIDED AND PT IS AWARE OF THE NEED FOR URINE SPECIMEN. WILL CONTINUE TO MONITOR.
[2021-08-29 06:39] LABS: Prothrombin Time 10.5 Seconds (9.50-12.10)
[2021-08-29 06:42] LABS: Alanine Aminotransferase 14 U/L (16-63); Albumin Level 2.8 g/dL (3.4-5.0); Alkaline Phosphatase 69 U/L (46-116); Anion Gap 5 mmol/L (8-16); Aspartate Amino Transferase 17 U/L (15-37); Bilirubin,Total 0.3 mg/dL (0.00-1.00); Blood Urea Nitrogen 17 mg/dL (7-18); Calcium 7.8 mg/dL (8.5-10.1); Carbon Dioxide 26 mmol/L (21-32); Chloride 108 mmol/L (98-108); Estimated CRCL calculation 77 ml/min; Estimated Glomerular Filt Rate > 60; Glucose 126 mg/dL (70-99); Lipase 266 U/L (73-393); Osmolality Calculated 291 mOsm/kg (285-295); Potassium 3.8 mmol/L (3.5-5.1); Sodium 139 mmol/L (136-145); Total Protein 6.3 g/dL (6.4-8.2); Troponin I 17.6 ng/L (0.00-60.4)
[2021-08-29 06:45] LABS: Lactic Acid Reflex 0.6 mmol/L (0.4-2.0)
--- NOTE | 2021-08-29 07:00 | PC.NURSE ---
PT IS IN CT AT THIS TIME
--- NOTE | 2021-08-29 08:10 | PC.NURSE ---
pt resting per cot. awaiting lab results.
[2021-08-29 08:13] LABS: Add Urine Microscopic? YES; Appearance Urine Clear (Clear); Bilirubin Urine Negative (Negative); Blood Urine 2+ (Negative); Color Urine Yellow (Yellow); Glucose Urine UA Negative (Negative); Ketones Urine Negative (Negative); Leukocyte Esterase Ur Negative (Negative); Nitrate Urine Negative (Negative); Protein Urine Negative (Negative); Specific Grav Ur 1.025 (1.010-1.020); Urobilinogen Urine 0.2 mg/dL (0.2-1.0); pH Urine 5.5 (5.0-8.0)
[2021-08-29 08:31] LABS: Squamous Epithelial Cell Urine Rare /hpf (Few); WBC Urine None seen /hpf (0-3)
[2021-08-29 08:32] LABS: Bacteria Urine Trace /hpf
[2021-08-29] MEDS: KETOROLAC 30 MG/ML VIAL (*BKC) IM (10:06)
[2021-08-29] MEDS: cefTRIAXone 1 GM VIAL IM (10:15)
== END 2021-08-29 10:33 | disposition home or self-care (01) ==
PROVIDERS: Emergency Provider Emergency Medicine
DX: D72.829 Elevated white blood cell count, unspecified (principal); K58.9 Irritable bowel syndrome, unspecified; K21.9 Gastro-esophageal reflux disease without esophagitis; F17.200 Nicotine dependence, unspecified, uncomplicated
CPT/HCPCS: 36415; 74177; 80053; 81001; 83605; 83690; 84484; 85025; 85610; 85730; 87040; 93005; 96361; 96372; 96374; 96375; 96376; 99284; C9113; J0696; J1885; J2270; J2405; J7030; Q9967

== ENCOUNTER 2021-11-08 21:38 | Emergency (ER) | payer MEDICARE, MEDICAID, SELFPAY ==
[2021-11-08] VITALS (18 sets, daily range): BP systolic 98–135; BP diastolic 62–79; PULSE 64–85; RESP 13–23; TEMP 36.6; O2SAT 91–98
--- NOTE | ~2021-11-08 | XR_ITS ---
XR chest 2V 11/08/2021 22:36 Indication: Pleuritic chest pain and cough Procedure: PA and lateral views of the chest Comparison: No prior studies for comparison. Findings: Heart size normal. No focal air space disease, pulmonary edema, pleural effusion or suspect ed pneumothorax. The lungs are hyperinflated which is consistent with, but not diagnostic of chronic obstructive pulmonary disease. There is bibasilar dependent atelectasis. Impression: 1: Bibasilar atelectasis. Reviewed, dictated and finalized at location A. Impression: 1: Bibasilar atelectasis.
--- NOTE | ~2021-11-08 | CT_ITS ---
EXAMINATION: CTA chest PE protocol DATE: 11/09/2021 07:48 CDT INDICATION: Elevated d-dimer. TECHNIQUE: Computed tomographic angiography (CTA) of the chest was performed with 100 mL Omnipaque-35 0 intravenous contrast. The dose-length product was 277.73 mGy-cm. Maximum intensity projection 3D-re constructions of the aorta and other arteries were constructed by the technologist on a separate work station. COMPARISON: Chest dated 11/08/2021. FINDINGS: Study is technically adequate without evidence for pulmonary embolism. No thoracic lymphade nopathy. There is atherosclerosis of the aorta. Heart size normal. No significant pleural or pericard ial effusion. Small hiatal hernia with thickening of the esophagus, consistent with esophagitis. Ther e is severe emphysema. There is a 7 mm fissural nodule in the right. No acute osseous abnormality. No endobronchial lesions. No pneumothorax. There is dependent atelectasis. IMPRESSION: 1. No evidence for pulmonary embolism or acute pulmonary disease. 2: Severe emphysema. 3: Right perifissural nodule measuring 7 mm. Follow-up low dose CT chest in 6 months recommended. Reviewed, dictated and finalized at location A. IMPRESSION: 1. No evidence for pulmonary embolism or acute pulmonary disease. 2: Severe emphysema. 3: Right perifissural nodule measuring 7 mm. Follow-up low dose CT chest in 6 m [facility] recommended.
--- NOTE | 2021-11-08 21:41 | ECG_ITS ---
Measurements Intervals [place] Rate: 79 P: 23 [place]: 139 QRS: 84 QRSD: 74 T: 50 QT: 338 QTc: 389 Interpretive Statements SINUS RHYTHM BASELINE ARTIFACT- I, II, III, AVR, AVL, AVF, V3-V4 NORMAL ECG Electronically Signed On 11-08-2021 21:58:46 CDT by Brooks Blandon D.O.
--- NOTE | 2021-11-08 22:14 | ED.GENADULT ---
HPI - General Adult General Chief complaint: Chest Pain Stated complaint: chest pain History of Present Illness HPI narrative: The patient is a 55-year-old male with a history of gastritis, dyspepsia, GERD, and irritable bowel syndrome along with emphysema. He is an active smoker. He is vaccinated against COVID-19, 1 of 1 dose, Atilio & Atilio, no booster. He only uses his rescue inhaler very rarely. He is not on any medications for his GERD or gastritis. He presents with pleuritic left-sided chest discomfort for the last week, worse with coughing or deep breathing or movement, non-radiating elsewhere, intermittent in nature, mild in intensity. There is no pain on palpation of the chest wall. He does have an associated cough with productive of yellow to green sputum. He has felt tired for the last week. Does have occasional chills. No fevers or diaphoresis. No nausea or vomiting or abdominal pain over the last several days. No rhinorrhea or nasal congestion or sore throat. Related Data Allergies Allergy/AdvReac Type Severity Reaction Status Date / Time No Known Allergies Allergy Verified 11/08/21 21:55 Review of Systems Review of Systems: All systems reviewed & are unremarkable except as noted in HPI and below Constitutional: Constitutional: Reports no additional constitutional complaints, Denies anorexia, Denies body ache(s), Reports chills, Denies excessive sweating, Denies fatigue, Denies fever(s), Denies frequent falls, Denies headache(s), Denies malaise and Denies poor appetite Eyes: Eyes: Reports no additional eye complaints, Denies blurry vision, Denies change in vision, Denies irritation, Denies itchy eyes and Denies photophobia ENT: Reports system reviewed and no additional complaints, except as documented, Reports Normal hearing present, Denies change in voice, Denies dysphagia, Denies vertigo, Denies dizziness, Denies ear discharge, Denies headache(s), Denies hearing loss, Denies hoarseness, Denies nasal congestion, Denies neck pain, Denies sinus pressure, Denies sore throat and Denies throat swelling Cardiovascular: Cardiovascular: Reports no additional cardiovascular complaints, Reports chest pain, Denies syncope, Denies rapid heart rate, Denies irregular heart rhythm, Denies leg edema, Denies dyspnea and Denies slow heart rate Respiratory: Respiratory: Reports no additional respiratory complaints, Reports cough, Denies dyspnea, Denies stridor and Denies wheezing Gastrointestinal: Gastrointestinal: Reports no additional gastrointestinal complaints, Denies abdominal pain, Denies melena, Denies hematochezia, Denies dysphagia, Denies diarrhea, Denies nausea and Denies vomiting Genitourinary: Genitourinary: Denies hematuria, Denies oliguria, Denies dysuria, Denies flank pain, Denies urinary frequency and Denies urinary urgency Musculoskeletal: Musculoskeletal: Reports no additional musculoskeletal complaints, Denies abnormal gait, Denies back pain, Denies myalgias, Denies arthralgias, Denies joint swelling, Denies limited range of motion, Denies muscle cramps, Denies muscle weakness, Denies neck pain and Denies numbness Integumentary/Breasts: Skin/Breast: Reports system reviewed and no additional complaints, except as docu, Denies breast pain, Denies change in pigmentation, Denies pruritus, Denies erythema and Denies wounds Neurologic: Reports system reviewed and no additional complaints, except as documented, Reports Normal hearing present, Denies Abnormal speech present, Denies abnormal gait, Denies confusion, Denies vertigo, Denies dizziness, Denies syncope, Denies frequent falls, Denies headache(s), Denies focal weakness, Denies numbness and Denies paresthesias Psychiatric: Psychiatric: Reports no additional psychiatric complaints and Denies confusion Endocrine: Endocrine: Reports no additional endocrine complaints, Denies cold intolerance, Denies excessive sweating, Denies fatigue and Denies heat intolerance Hematologic
[2021-11-08 22:59] LABS: Basophils Absolute Auto 0.07 K/mm3 (0.00-0.10); Basophils Percent Auto 0.7 % (0.0-1.0); Eosinophils Absolute Auto 0.24 K/mm3 (0.02-0.50); Eosinophils Percent Auto 2.3 % (1.0-6.0); Hematocrit 42.4 % (40.0-54.0); Hemoglobin 14.9 g/dL (14.0-18.0); Immature Granulocyte Absolute 0.02 K/mm3 (0.00-0.00); Immature Granulocyte Percent A 0.2 % (0.0-0.0); Lymphocytes Absolute Auto 2.69 K/mm3 (1.10-4.50); Lymphocytes Percent Auto 26.1 % (18.0-42.0); Mean Corpuscular HGB Conc 35.1 g/dL (32.0-36.0); Mean Corpuscular Hemoglobin 32.3 pg (27.0-31.0); Mean Corpuscular Volume 91.8 fL (78.0-102.0); Monocytes Absolute Auto 0.75 K/mm3 (0.10-0.90); Monocytes Percent Auto 7.3 % (2.0-11.0); Neutrophils Absolute Auto 6.5 K/mm3 (1.7-7.2); Neutrophils Percent Auto 63.4 % (50.0-70.0); Platelet Count Result 259 K/mm3 (150-420); Red Blood Count 4.62 M/mm3 (4.70-6.10); Red Cell Distribution Width 13.1 % (11.6-14.4); White Blood Count 10.3 K/mm3 (4.8-10.8)
[2021-11-08 23:10] LABS: D Dimer 1.97 mg/L (0.19-0.50)
[2021-11-08 23:16] LABS: Alanine Aminotransferase 15 U/L (16-63); Albumin Level 2.9 g/dL (3.4-5.0); Alkaline Phosphatase 62 U/L (46-116); Anion Gap 4 mmol/L (8-16); Aspartate Amino Transferase 10 U/L (15-37); Bilirubin,Total 0.3 mg/dL (0.00-1.00); Blood Urea Nitrogen 15 mg/dL (7-18); Calcium 8.6 mg/dL (8.5-10.1); Carbon Dioxide 29 mmol/L (21-32); Chloride 107 mmol/L (98-108); Estimated Glomerular Filt Rate > 60; Glucose 106 mg/dL (70-99); NT Pro B Type Natriuretic Pept 61 pg/mL (0-125); Osmolality Calculated 290 mOsm/kg (285-295); Potassium 3.8 mmol/L (3.5-5.1); Sodium 140 mmol/L (136-145); Total Protein 6.4 g/dL (6.4-8.2); Troponin I 17.2 ng/L (0.00-60.4)
[2021-11-08 23:23] LABS: CRP < 0.5 mg/dL (0.0-0.9)
[2021-11-08 23:39] LABS: SARS-CoV-2 RNA PCR Negative (Negative)
[2021-11-09 00:13] VITALS: PULSE 74
[2021-11-09 00:14] LABS: Erythrocyte Sedimentation Rate 5 mm/hr (0-20)
[2021-11-09] MEDS: AZITHROMYCIN 250 MG TABLET 500 MG PO (00:14)
[2021-11-09 00:15] VITALS: PULSE 75; RESP 17; O2SAT 97
[2021-11-09 00:30] VITALS: PULSE 76; RESP 21; O2SAT 93
[2021-11-09 00:43] VITALS: BP 111/77; PULSE 74; RESP 17; O2SAT 93
[2021-11-09 00:45] VITALS: PULSE 67; RESP 19; O2SAT 93
--- NOTE | 2021-11-09 09:33 | PC.NURSE ---
patient called, pharmacy is closed, prescription called into [facility] and canceled at [facility] in [place]
== END 2021-11-09 01:02 | disposition home or self-care (01) ==
PROVIDERS: Emergency Provider Emergency Medicine
DX: R07.9 Chest pain, unspecified (principal); J20.9 Acute bronchitis, unspecified; Z20.822 Contact with and (suspected) exposure to COVID-19; K21.9 Gastro-esophageal reflux disease without esophagitis; K58.9 Irritable bowel syndrome, unspecified; F17.200 Nicotine dependence, unspecified, uncomplicated
CPT/HCPCS: 36415; 71046; 71275; 80053; 83880; 84484; 85025; 85380; 85652; 86140; 93005; 99284; A9270; C9803; Q9967; U0003; U0005

== ENCOUNTER 2021-12-03 08:52 | Emergency (ER) | payer MEDICARE, MEDICAID, SELFPAY ==
--- NOTE | ~2021-12-03 | CT_ITS ---
EXAMINATION: CT abdomen pelvis wo con DATE: 12/03/2021 09:33 INDICATION: Abdominal pain, nausea, vomiting and diarrhea. TECHNIQUE: Computed tomography (CT) of the abdomen and pelvis was performed without intravenous contr ast. Automated exposure control and iterative reconstruction technique were employed. The dose-length product was 235.76 mGy-cm. COMPARISON: CT abdomen and pelvis dated 08/29/2021 FINDINGS: Chronic 5 mm nodule along a band of mild discoid atelectasis in the right middle lobe. Heart size is normal. No pericardial or pleural effusion. Small sliding-type hiatal hernia. Liver, gallbladder, spl een, pancreas and bilateral adrenal glands are normal. Bilateral nonobstructing nephrolithiasis with 2 mm stone at a lower pole calyx of the left kidney and 1 mm stone at a lower pole calyx of the left kidney. Surgical clips between the cecum and the right psoas muscle likely related to prior appendect yogesh. Short segments of nonobstructed small bowel extends into bilateral small direct inguinal hernias . No dilated bowel to suggest obstruction. There are few scattered diverticula along the descending c olon without adjacent inflammatory stranding to suggest diverticulitis. There is wall thickening and subtle hyperemia to vasa recta along the transverse colon consistent with colitis. Bladder is normal. Mild prostatomegaly measuring 4.0 x 3.5 cm. No free intraperitoneal gas or fluid. No pathologically enlarged abdominal or pelvic lymphadenopathy. Chronic mild anterior wedging at T11. Mild lumbar and l ower thoracic spondylosis. IMPRESSION: 1. Mild thickening and mild associated impression: Transverse colon consistent with colitis which cou ld be infectious, inflammatory or less likely ischemic in etiology. 2. Short segment of nonobstructed small bowel extending into bilateral direct inguinal hernias. 3. Small sliding-type hiatal hernia. 4. Bilateral nonobstructing nephrolithiasis. Reviewed, dictated and finalized at location A. IMPRESSION: 1. Mild thickening and mild associated impression: Transverse colon consistent with colitis which could be infectious, inflammatory or less likely ischemic in etiology. 2. Short segment of nonobstructed small bowel extending into bilateral direct i nguinal hernias. 3. Small sliding-type hiatal hernia. 4. Bilateral nonobstructing nephrolithiasis.
[2021-12-03 08:55] VITALS: BP 139/94; PULSE 69; RESP 20; TEMP 35.7; O2SAT 97
[2021-12-03] MEDS: SODIUM CHLORIDE 0.9% IV 1,000 ML 999 ML IV CONT (09:36)
[2021-12-03] MEDS: KETOROLAC 30 MG/ML VIAL (*BKC) IM (09:38)
[2021-12-03] MEDS: ONDANSETRON INJ 4 MG/2 ML VIAL IV PUSH (09:39)
[2021-12-03] MEDS: PANTOPRAZOLE SODIUM IV 40 MG VIAL IV PUSH (09:40)
[2021-12-03 09:47] VITALS: BP 140/81; PULSE 65; RESP 18; O2SAT 97
[2021-12-03 09:58] LABS: Basophils Absolute Auto 0.06 K/mm3 (0.00-0.10); Basophils Percent Auto 0.4 % (0.0-1.0); Eosinophils Absolute Auto 0.08 K/mm3 (0.02-0.50); Eosinophils Percent Auto 0.5 % (1.0-6.0); Hematocrit 47.4 % (40.0-54.0); Hemoglobin 15.9 g/dL (14.0-18.0); Immature Granulocyte Absolute 0.09 K/mm3 (0.00-0.00); Immature Granulocyte Percent A 0.6 % (0.0-0.0); Lymphocytes Absolute Auto 1.57 K/mm3 (1.10-4.50); Mean Corpuscular HGB Conc 33.5 g/dL (32.0-36.0); Mean Corpuscular Hemoglobin 30.9 pg (27.0-31.0); Mean Corpuscular Volume 92.2 fL (78.0-102.0); Mean Platelet Volume 10.3 fl (8.7-11.0); Monocytes Absolute Auto 0.38 K/mm3 (0.10-0.90); Monocytes Percent Auto 2.4 % (2.0-11.0); Neutrophils Absolute Auto 13.5 K/mm3 (1.7-7.2); Neutrophils Percent Auto 86.1 % (50.0-70.0); Platelet Count Result 262 K/mm3 (150-420); Red Blood Count 5.14 M/mm3 (4.70-6.10); Red Cell Distribution Width 13.1 % (11.6-14.4); White Blood Count 15.6 K/mm3 (4.8-10.8)
[2021-12-03 10:17] LABS: Alanine Aminotransferase 23 U/L (16-63); Albumin Level 3.5 g/dL (3.4-5.0); Alkaline Phosphatase 72 U/L (46-116); Anion Gap 10 mmol/L (8-16); Aspartate Amino Transferase 19 U/L (15-37); Bilirubin,Total 0.4 mg/dL (0.00-1.00); Blood Urea Nitrogen 17 mg/dL (7-18); Carbon Dioxide 26 mmol/L (21-32); Chloride 102 mmol/L (98-108); Estimated CRCL calculation 68 ml/min; Estimated Glomerular Filt Rate > 60; Glucose 168 mg/dL (70-99); Lipase 63 U/L (73-393); Osmolality Calculated 291 mOsm/kg (285-295); Potassium 4.3 mmol/L (3.5-5.1); Sodium 138 mmol/L (136-145); Total Protein 7.3 g/dL (6.4-8.2)
[2021-12-03 10:20] VITALS: BP 129/65; PULSE 75; RESP 18; TEMP 36.1; O2SAT 98
[2021-12-03 10:20] LABS: Lactic Acid Reflex 1.6 mmol/L (0.4-2.0)
--- NOTE | 2021-12-03 10:33 | ED.ABDPAIN ---
HPI - Abdominal Pain General Chief Complaint: Abdominal Pain Stated Complaint: STOMACH PAIN Time Seen by Provider: 12/03/21 08:56 Source: patient and RN notes reviewed Mode of arrival: ambulatory Limitations: no limitations History of Present Illness MD elicited complaint: abdominal pain (mild generalized abdominal pain) Pertinent past history: other (irritable bowel disease.) Onset (ago): hour(s) (4) Pain Consistency: constant and colicky Location: diffuse Severity: moderate Pain scale (0-10): 7 Quality: cramping and dull Migration to: no migration Exacerbating factors: nothing Relieving factors: nothing Associated symptoms: nausea, vomiting and diarrhea Related Data Allergies Allergy/AdvReac Type Severity Reaction Status Date / Time No Known Allergies Allergy Verified 12/03/21 09:03 Review of Systems Review of Systems: All systems reviewed & are unremarkable except as noted in HPI and below Constitutional: Constitutional: Reports no additional constitutional complaints Eyes: Eyes: Reports no additional eye complaints ENT: Reports system reviewed and no additional complaints, except as documented Cardiovascular: Cardiovascular: Reports no additional cardiovascular complaints Respiratory: Respiratory: Reports no additional respiratory complaints Gastrointestinal: Gastrointestinal: Reports abdominal pain, Reports diarrhea, Reports nausea and Reports vomiting Musculoskeletal: Musculoskeletal: Reports no additional musculoskeletal complaints Integumentary/Breasts: Skin/Breast: Reports system reviewed and no additional complaints, except as docu Neurologic: Reports system reviewed and no additional complaints, except as documented Psychiatric: Psychiatric: Reports no additional psychiatric complaints Endocrine: Endocrine: Reports no additional endocrine complaints Hematologic/Lymphatic: Hematologic/Lymphatic: Reports no additional hematologic/lymphatic complaints Allergic/Immunologic: Allergic/Immunologic: Reports no additional allergic/immunologic complaints [facility] Past Medical History Medical History Anxiety 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 Bilateral nephrolithiasis June 22, 2019 CT of abdomen and pelvis with contrast at [facility] in [facility]. Biliary sludge C. 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 Marihuana dependence Nausea & vomiting Tobacco dependence Surgical History Surgical History History of appendectomy History of eye surgery As a child. History of inguinal hernia repair (~07/2013) Bilateral. Family History Family History Other Family history not known due to adoption Patient grew up in foster care and does not know his biological family or any medical history regarding such. Social History Social History Social History: The patient lives in [place] with his . They have 4 grown children. 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 He smokes 0.5 packs of cigarettes per day, but at most smoked 1.5 packs of cigarettes per day while he was driving. He uses marijuana socially. He drinks alcohol perhaps 1 time a month, and in moderation. He designates his , Sharon, as his surrogate decision maker and he wishes to be a full code. Smoking packs per day: 0.5 Smoking cigarettes per day: 10.0 Years smoked: 35 Smoking pack-years: 17.50 S
[2021-12-03 10:53] LABS: Add Urine Microscopic? YES; Appearance Urine Clear (Clear); Bilirubin Urine Negative (Negative); Blood Urine 2+ (Negative); Color Urine Yellow (Yellow); Glucose Urine UA Negative (Negative); Ketones Urine 1+ (Negative); Leukocyte Esterase Ur Negative LEU/UL (Negative); Nitrate Urine Negative (Negative); Protein Urine Negative (Negative); Specific Grav Ur >= 1.030 (1.010-1.020); Urobilinogen Urine 0.2 mg/dL (0.2-1.0); pH Urine 5.5 (5.0-8.0)
[2021-12-03 10:59] LABS: Bacteria Urine Trace /hpf; Mucus Urine Moderate /lpf; WBC Urine None seen /hpf (0-3)
[2021-12-03 11:04] VITALS: BP 129/82; PULSE 81; RESP 16; O2SAT 98
== END 2021-12-03 11:12 | disposition home or self-care (01) ==
PROVIDERS: Emergency Provider Emergency Medicine; PCP Family Medicine
DX: K52.9 Noninfective gastroenteritis and colitis, unspecified (principal); K21.9 Gastro-esophageal reflux disease without esophagitis; F17.200 Nicotine dependence, unspecified, uncomplicated
CPT/HCPCS: 36415; 74176; 80053; 81001; 83605; 83690; 85025; 96361; 96365; 96372; 96375; 99284; C9113; J0696; J1885; J2405; J7030

== ENCOUNTER 2021-12-06 06:34 | Inpatient (IN) | payer MEDICARE, MEDICAID, SELFPAY ==
[2021-12-06] VITALS (9 sets, daily range): BP systolic 100–151; BP diastolic 53–94; PULSE 59–83; RESP 16–20; TEMP 36.2–37.1; O2SAT 93–100; BMI 23.4
--- NOTE | 2021-12-06 06:42 | ED.ABDPAIN ---
HPI - Abdominal Pain General Chief Complaint: Abdominal Pain Stated Complaint: stomach pains Time Seen by Provider: 12/06/21 06:39 Source: patient Mode of arrival: ambulatory History of Present Illness HPI narrative: 36-year-old male, smoker with a history of chronic abdominal pain secondary to gastritis, esophagitis, diverticulitis, GERD, hiatal hernia, pancreatitis, kidney stones, anxiety /depression, IBS presented to the ER on 12/03/2021 with abdominal pain. The patient had a CT scan of the abdomen which revealed transverse colitis, hiatal hernia and bilateral inguinal hernias. The patient has been seen by GI and has had an upper and lower GI endoscopy by GI specialist at [place] and was noted to have esophagitis/ gastritis, rectal and colonic polyps/ diverticulosis and internal hemorrhoids. The patient presents to the ER with a 2 hour history of -- diffuse abdominal pain which is continuous. No exacerbating or relieving factors. -- Nausea with 2 episodes of vomiting. -- Has had multiple loose stools no fever or chills MD elicited complaint: abdominal pain Pertinent past history: diverticulitis, gastritis and kidney stones Onset (ago): hour(s) ( started 2 hours ago) Pain Consistency: constant Location: diffuse Severity: severe Quality: cramping Radiation: none Migration to: no migration Exacerbating factors: nothing Relieving factors: nothing Associated symptoms: denies other symptoms, nausea, vomiting and diarrhea Treatments prior to arrival: NSAIDs Related Data Allergies Allergy/AdvReac Type Severity Reaction Status Date / Time No Known Allergies Allergy Verified 12/06/21 06:46 Review of Systems Review of Systems: All systems reviewed & are unremarkable except as noted in HPI and below Constitutional: Constitutional: Reports as per HPI and Reports no additional constitutional complaints Eyes: Eyes: Reports as per HPI and Reports no additional eye complaints ENT: Reports system reviewed and no additional complaints, except as documented and Reports as per HPI Cardiovascular: Cardiovascular: Reports as per HPI and Reports no additional cardiovascular complaints Respiratory: Respiratory: Reports as per HPI, Reports no additional respiratory complaints and Reports cough Gastrointestinal: Gastrointestinal: Reports as per HPI, Reports no additional gastrointestinal complaints, Reports abdominal pain, Reports diarrhea, Reports nausea and Reports vomiting Genitourinary: Genitourinary: Reports no additional male genitourinary complaints and Reports as per HPI Musculoskeletal: Musculoskeletal: Reports no additional musculoskeletal complaints and Reports back pain Integumentary/Breasts: Skin/Breast: Reports system reviewed and no additional complaints, except as docu and Reports as per HPI Neurologic: Reports system reviewed and no additional complaints, except as documented and Reports as per HPI Psychiatric: Psychiatric: Reports no additional psychiatric complaints, Reports anxiety and Reports depression Endocrine: Endocrine: Reports no additional endocrine complaints and Reports as per HPI Hematologic/Lymphatic: Hematologic/Lymphatic: Reports no additional hematologic/lymphatic complaints and Reports as per HPI Allergic/Immunologic: Allergic/Immunologic: Reports no additional allergic/immunologic complaints and Reports as per HPI [facility] Past Medical History Medical History Anxiety 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 Bilateral nephrolithiasis June 22, 2019 CT of abdomen and pelvis with contrast at [facility] in [facility]. Biliary sludge C. difficile colitis (~2014) Chronic back pain Colon cancer screening Cyclical vomiting Depression Diarrhea Diverticulitis (~05/2019) Involving the distal descending colon Dyspepsia Esophagitis Gastritis Gastroesophageal reflux disease Head injury Irritable bowel syndrome
--- NOTE | 2021-12-06 06:58 | PC.NURSE ---
report given to julio Alicea Rn.
[2021-12-06] MEDS: ONDANSETRON INJ 4 MG/2 ML VIAL IV PUSH (07:17)
[2021-12-06 07:18] LABS: Basophils Absolute Auto 0.07 K/mm3 (0.00-0.10); Basophils Percent Auto 0.4 % (0.0-1.0); Eosinophils Absolute Auto 0.13 K/mm3 (0.02-0.50); Eosinophils Percent Auto 0.7 % (1.0-6.0); Hemoglobin 15.2 g/dL (14.0-18.0); Immature Granulocyte Absolute 0.09 K/mm3 (0.00-0.00); Immature Granulocyte Percent A 0.5 % (0.0-0.0); Lymphocytes Absolute Auto 1.93 K/mm3 (1.10-4.50); Mean Corpuscular HGB Conc 34.5 g/dL (32.0-36.0); Mean Corpuscular Hemoglobin 31.5 pg (27.0-31.0); Mean Corpuscular Volume 91.3 fL (78.0-102.0); Mean Platelet Volume 10.1 fl (8.7-11.0); Monocytes Percent Auto 3.4 % (2.0-11.0); Neutrophils Absolute Auto 14.7 K/mm3 (1.7-7.2); Platelet Count Result 270 K/mm3 (150-420); Red Blood Count 4.82 M/mm3 (4.70-6.10); Red Cell Distribution Width 12.9 % (11.6-14.4); White Blood Count 17.6 K/mm3 (4.8-10.8)
[2021-12-06] MEDS: HYDROmorphone HCL INJ (*CRX) 2 MG/ML VIAL 0.5 MG IV PUSH (07:18)
[2021-12-06 07:32] LABS: Prothrombin Time 10.9 Seconds (9.50-12.10)
[2021-12-06 07:35] LABS: Lactic Acid Reflex 0.9 mmol/L (0.4-2.0)
[2021-12-06 07:36] LABS: Alanine Aminotransferase 29 U/L (16-63); Albumin Level 3.2 g/dL (3.4-5.0); Alkaline Phosphatase 64 U/L (46-116); Anion Gap 8 mmol/L (8-16); Aspartate Amino Transferase 23 U/L (15-37); Bilirubin,Total 0.4 mg/dL (0.00-1.00); Blood Urea Nitrogen 17 mg/dL (7-18); Calcium 8.5 mg/dL (8.5-10.1); Carbon Dioxide 25 mmol/L (21-32); Chloride 104 mmol/L (98-108); Estimated Glomerular Filt Rate > 60; Glucose 137 mg/dL (70-99); Lipase 107 U/L (73-393); Osmolality Calculated 287 mOsm/kg (285-295); Potassium 3.8 mmol/L (3.5-5.1); Sodium 137 mmol/L (136-145); Total Protein 6.7 g/dL (6.4-8.2); Troponin I 14.9 ng/L (0.00-60.4)
[2021-12-06] MEDS: metroNIDAZOLE 500 MG/ISO 100ML 500 MG/100 ML BAG 100 MG IVPB ×3 (08:20→23:23)
[2021-12-06 08:29] LABS: Add Urine Microscopic? YES; Appearance Urine Clear (Clear); Bilirubin Urine Negative (Negative); Blood Urine 2+ (Negative); Color Urine Yellow (Yellow); Glucose Urine UA Negative (Negative); Ketones Urine 1+ (Negative); Leukocyte Esterase Ur Negative LEU/UL (Negative); Nitrate Urine Negative (Negative); Protein Urine Negative (Negative); Specific Grav Ur >= 1.030 (1.010-1.020); Urobilinogen Urine 0.2 mg/dL (0.2-1.0); pH Urine 5.5 (5.0-8.0)
[2021-12-06 08:33] LABS: Bacteria Urine Trace /hpf; WBC Urine None seen /hpf (0-3)
--- NOTE | 2021-12-06 09:25 | ADMGEN ---
This patient, Chucky Ojeda, was admitted to 2nd Floor Room 210-1. Patient/family oriented to hospital policies and general routines including ID bracelet, bed and alarms, visiting hours, pain management, procedures, bathroom and other care routines, personal items, smoking policy, room service/diet, and visiting hours. Information on how to activate the Rapid Response Team has been discussed. Patient/Family are encouraged to report perceived risks to care and to ask questions if they do not understand what they are told or what they should do.
--- NOTE | 2021-12-06 09:30 | ECG_ITS ---
Measurements Intervals [place] Rate: 51 P: 47 [place]: 100 QRS: 85 QRSD: 86 T: 73 QT: 423 QTc: 391 Interpretive Statements SINUS BRADYCARDIA WITH SHORT W[place] INTERVAL COMPARED TO ECG 11/08/2021 21:48:32 SINUS BRADYCARDIA NOW PRESENT Electronically Signed On 12-06-2021 13:45:41 CDT by Dania Dong M.D.
[2021-12-06] MEDS: CIPROFLOXACIN 400 MG/D5W 200ML 200 ML 200 MG IVPB ×2 (09:39→20:11)
[2021-12-06] MEDS: HYDROcodone/acetaminophen (*CRX) 5-325 MG TABLET 1 TAB PO ×3 (10:01→23:24)
[2021-12-06] MEDS: SODIUM CHLORIDE 0.9% IV 1,000 ML 100 ML IV CONT ×2 (10:41→21:18)
[2021-12-06] MEDS: METOCLOPRAMIDE HCL INJ 10 MG/2 ML VIAL 5 MG IV PUSH ×3 (11:58→23:22)
[2021-12-06] MEDS: traMADol HCL (*CRX) 25 MG TABLET PO ×2 (13:06→20:14)
[2021-12-06] MEDS: traZODone HCL 50 MG TABLET PO (20:14)
[2021-12-07] MEDS: METOCLOPRAMIDE HCL INJ 10 MG/2 ML VIAL 5 MG IV PUSH (05:09)
[2021-12-07] MEDS: traMADol HCL (*CRX) 25 MG TABLET PO (05:10)
[2021-12-07] MEDS: metroNIDAZOLE 500 MG/ISO 100ML 500 MG/100 ML BAG 100 MG IVPB (05:11)
--- NOTE | 2021-12-07 06:40 | PM.SD2 ---
Same Day Admit/Disch: HPI History of Present Illness Chief complaint: stomach pains Narrative: Chucky Ojeda is a 56 year old male that presented to the emergency department with abdominal pain nausea vomiting and diarrhea. Patient has a past medical history of anxiety, Cerna's pals, chronic back pain, cyclical vomiting, depression, diarrhea, diverticulitis, dyspepsia, esophagitis, gastritis, GERD, head injury, irritable bowel syndrome, marijuana dependence, nausea and vomiting, and tobacco dependence. Patient has a long history of having GI issues he notes that he has been diagnosed with irritable bowel syndrome and have had several tests with no conclusion. Patient does have a history of cannabis use as well. Patient came to our hospital on 12/04/2019 with abdominal pain and was discharged with amoxicillin Zofran omeprazole and ibuprofen. Today patient nausea vomiting and diarrhea has been controlled. Patient is anxious to discharge and he has not experienced any nausea vomiting or diarrhea. Vital signs 100/53, 59, 20, 98.8, 93% on room air, WBCs 17.6, hemoglobin 4.82, hematocrit 15.2 sodium 137, potassium 3.8, , BUN 17, creatinine 0.95, glucose 137, lactic acid 1.6, total bilirubin 0.4, AST 19, ALT 23, troponin 14.9, lipase 107 imaging indicates colitis. Discharge instructions reviewed with patient, as well as provided in writing per nursing staff. The instructions also include specific and strict return/GO TO THE ER as well as f/u information. All questions have been answered, and the patient and/or family deny any further questions with discharge and discharge plan. The patient denies SOB, CP, palpitation, extremity numbness, lightheadedness, dizziness, constipation, diarrhea, chills, or fever. Patient continues to have discomfort to his abdominal area. He has been instructed to eat a bland diet while at home drink plenty of water and Gatorade or Pedialyte to stay hydrated and refrain from the use of cannabis. He will also be [facility] instructed not to drink with antibiotic treatment. Patient also instructed to take Zofran 30 minutes before his meal. Patient also notified to use Compazine with Zofran does not work. 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 Bilateral nephrolithiasis June 22, 2019 CT of abdomen and pelvis with contrast at [facility]. Biliary sludge C. 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 Marihuana dependence Nausea & vomiting Tobacco dependence Surgical History Surgical History History of appendectomy History of eye surgery As a child. History of inguinal hernia repair (~07/2013) Bilateral. Family History Family History Other Family history not known due to adoption Patient grew up in foster care and does not know his biological family or any medical history regarding such. Social History Social History Social History: The patient lives in [place] with his . They have 4 grown children. 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 He smokes 0.5 packs of cigarettes per day, but at most smoked 1.5 packs of cigarettes per day while he was driving. He uses marijuana socially. He drinks alcohol perhaps 1 time a month, and in moderation. He designates his , Sharon, as his surrogate adele
[2021-12-07 06:58] LABS: Hemoglobin 12.9 g/dL (14.0-18.0); Mean Corpuscular HGB Conc 33.9 g/dL (32.0-36.0); Mean Corpuscular Hemoglobin 31.3 pg (27.0-31.0); Mean Corpuscular Volume 92.2 fL (78.0-102.0); Mean Platelet Volume 10.1 fl (8.7-11.0); Platelet Count Result 217 K/mm3 (150-420); Red Blood Count 4.12 M/mm3 (4.70-6.10); White Blood Count 6.5 K/mm3 (4.8-10.8)
[2021-12-07 07:13] LABS: Alanine Aminotransferase 17 U/L (16-63); Albumin Level 2.4 g/dL (3.4-5.0); Alkaline Phosphatase 49 U/L (46-116); Anion Gap 4 mmol/L (8-16); Aspartate Amino Transferase 10 U/L (15-37); Bilirubin,Total 0.3 mg/dL (0.00-1.00); Blood Urea Nitrogen 10 mg/dL (7-18); Calcium 7.9 mg/dL (8.5-10.1); Carbon Dioxide 27 mmol/L (21-32); Chloride 108 mmol/L (98-108); Estimated CRCL calculation 67 ml/min; Estimated Glomerular Filt Rate > 60; Glucose 91 mg/dL (70-99); Osmolality Calculated 287 mOsm/kg (285-295); Potassium 3.5 mmol/L (3.5-5.1); Sodium 139 mmol/L (136-145); Total Protein 5.2 g/dL (6.4-8.2)
[2021-12-07 08:00] VITALS: BP 100/59; PULSE 60; RESP 14; TEMP 36.9; O2SAT 92
[2021-12-07] MEDS: SACCHAROMYCES BOULARDII 250 MG CAPSULE PO (08:43)
[2021-12-07] MEDS: PANTOPRAZOLE SODIUM IV 40 MG VIAL IV PUSH (08:43)
[2021-12-07] MEDS: ENOXAPARIN 40 MG/0.4 ML SYRINGE SUB-Q (08:44)
[2021-12-07] MEDS: CIPROFLOXACIN 400 MG/D5W 200ML 200 ML 200 MG IVPB (08:46)
[2021-12-07] MEDS: HYDROcodone/acetaminophen (*CRX) 5-325 MG TABLET 1 TAB PO (09:55)
--- NOTE | 2021-12-07 10:10 | PC.NURSE ---
Patient given discharge packet. Reviewed discharge packet and reminded to not restart normal diet to quickly. Patient has appointment with insurance account executive-Dr. Metzger in [place] in 2 weeks.
--- NOTE | 2021-12-07 10:30 | PC.NURSE ---
Addendum entered by Tania Rothman RN 12/07/21 10:40: IV removed intact prior to discharge Original Note: Patient transported by wheelchair to private vehicle for discharge
--- NOTE | 2021-12-10 09:35 | PC.NURSE ---
Unable to contact for discharge call back.
== END 2021-12-07 10:25 | disposition home or self-care (01) | DRG 392 ==
LOC: CHSED 08:04 → CHS2ND 09:02
PROVIDERS: Internal Medicine Critical Care Medicine; Nurse Practitioner; Admitting Provider Internal Medicine; Emergency Provider Emergency Medicine; PCP Family Medicine; Visit Provider Internal Medicine
DX: K52.9 Noninfective gastroenteritis and colitis, unspecified (principal); K57.30 Diverticulosis of large intestine without perforation or abscess without bleeding; K21.9 Gastro-esophageal reflux disease without esophagitis; K44.9 Diaphragmatic hernia without obstruction or gangrene; M54.9 Dorsalgia, unspecified; G89.29 Other chronic pain; H35.30 Unspecified macular degeneration; F12.90 Cannabis use, unspecified, uncomplicated; F41.9 Anxiety disorder, unspecified; F17.210 Nicotine dependence, cigarettes, uncomplicated; F32.A Depression, unspecified; Z87.442 Personal history of urinary calculi; H54.8 Legal blindness, as defined in USA; Z87.891 Personal history of nicotine dependence
CPT/HCPCS: 36415; 80053; 81001; 83605; 83690; 84484; 85025; 85027; 85610; 93005; 96374; 96375; 99285; A9270; C9113; J0744; J1170; J1650; J2405; J2765; J7030

== ENCOUNTER 2021-12-12 08:34 | Emergency (ER) | payer MEDICARE, MEDICAID, SELFPAY ==
--- NOTE | ~2021-12-12 | CT_ITS ---
EXAMINATION: CT abdomen pelvis wo con DATE: 12/12/2021 09:09 INDICATION: Severe abdominal pain TECHNIQUE: Computed tomography (CT) of the abdomen and pelvis was performed without intravenous contr ast. The dose-length product (DLP) was 233.58 mGy-cm. Automated exposure control and iterative recons truction technique were employed. COMPARISON: 12/03/2021 FINDINGS: There is mild emphysema. There is a small sliding hiatal hernia. Again noted is a chronic 5 mm nodule of the right middle lobe. The heart size is normal. The liver, spleen, pancreas, gallbladd er, and adrenal glands are normal. There is a 2 mm nonobstructing stone of the right kidney. There ar e punctate nonobstructing stones of the left kidney. No pathologically enlarged abdominal or pelvic l ymph nodes are identified. There is no free intraperitoneal gas or evidence of bowel obstruction. The re is a small left inguinal hernia containing a short segment of nonobstructed small bowel. A small r ight inguinal hernia containing the anterior wall of a short segment of nonobstructed small bowel. Th ere appears to be subtle wall thickening of the proximal descending colon. IMPRESSION: 1. Possible mild colitis of the proximal descending colon. 2. Bilateral inguinal hernias containing short segment of nonobstructed small bowel. Reviewed, dictated and finalized at location B. IMPRESSION: 1. Possible mild colitis of the proximal descending colon. 2. Bilateral inguinal hernias containing short segment of nonobstructed small b owel.
[2021-12-12 08:35] VITALS: BP 140/75; PULSE 61; RESP 18; TEMP 36.3; O2SAT 98
--- NOTE | 2021-12-12 08:44 | ED.ABDPAIN ---
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 Bilateral nephrolithiasis June 22, 2019 CT of abdomen and pelvis with contrast at [facility] [place] [facility]. Biliary sludge C. 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 Marihuana dependence Nausea & vomiting Tobacco dependence Surgical History Surgical History History of appendectomy History of eye surgery As a child. History of inguinal hernia repair (~07/2013) Bilateral. Family History Family History Other Family history not known due to adoption Patient grew up in foster care and does not know his biological family or any medical history regarding such. Social History Social History Social History: The patient lives in [place] with his . They have 4 grown children. 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 He smokes 0.5 packs of cigarettes per day, but at most smoked 1.5 packs of cigarettes per day while he was driving. He uses marijuana socially. He drinks alcohol perhaps 1 time a month, and in moderation. He designates his , Sharon, as his surrogate decision maker and he wishes to be a full code. Smoking packs per day: 0.5 Smoking cigarettes per day: 10.0 Years smoked: 40 Smoking pack-years: 20.00 Smoking status: Current every day smoker Tobacco type: cigarettes Second hand tobacco smoke exposure: Yes Alcohol intake: never Alcohol use details: rarely Substance use: current Substance use type: marijuana Other substance usage details: 3x an week Spiritual care concerns: No Exam Const: General: no acute distress, alert and ill appearing acutely Nutritional Appearance: well nourished and thin Orientation/consciousness: patient oriented x3 Limitations: no limitations HENMT: Head: normal to inspection Ears: external ears normal Eyes: Conjunctivae: conjunctivae normal Pupils: Equal, round and reactive pupils present EOM: EOMs intact bilaterally Neck: Neck: normal visual inspection Resp: Effort & Inspection: normal respiratory effort Auscultation: clear to auscultation bilaterally Cardio: Rate: regular rate Rhythm: regular rhythm GI: GI Palp: Yes Soft to palpation, Yes Tenderness to palpation present (GI) ( moderate throughout the abdomen), Yes Guarding due to palpation present (GI) ( moderate throughout the abdomen) and No Rebound tenderness present Auscultation: normal bowel sounds Back/Spine/Pelvis: Back: no CVA tenderness Cervical Spine: cervical ROM normal Thoracic/Lumbar Spine: thoraco-lumbar ROM normal Skin: General skin exam: normal color Rashes: no rashes Neuro: General: patient oriented x3, moves all extremities, no focal motor deficits and CN's II-XI intact bilaterally Speech: normal speech Extrem: General: normal to inspection and no clubbing, cyanosis or edema Psych: Mental Status: mental status grossly normal Aff
[2021-12-12] MEDS: ONDANSETRON INJ 4 MG/2 ML VIAL IV PUSH (09:12)
[2021-12-12 09:25] LABS: Basophils Absolute Auto 0.06 K/mm3 (0.00-0.10); Basophils Percent Auto 0.4 % (0.0-1.0); Eosinophils Absolute Auto 0.06 K/mm3 (0.02-0.50); Eosinophils Percent Auto 0.4 % (1.0-6.0); Hemoglobin 15.3 g/dL (14.0-18.0); Immature Granulocyte Absolute 0.11 K/mm3 (0.00-0.00); Immature Granulocyte Percent A 0.7 % (0.0-0.0); Lymphocytes Percent Auto 7.8 % (18.0-42.0); Mean Corpuscular Hemoglobin 31.2 pg (27.0-31.0); Mean Corpuscular Volume 91.8 fL (78.0-102.0); Mean Platelet Volume 9.8 fl (8.7-11.0); Monocytes Absolute Auto 0.47 K/mm3 (0.10-0.90); Monocytes Percent Auto 2.8 % (2.0-11.0); Neutrophils Absolute Auto 14.8 K/mm3 (1.7-7.2); Neutrophils Percent Auto 87.9 % (50.0-70.0); Platelet Count Result 267 K/mm3 (150-420); Red Cell Distribution Width 13.2 % (11.6-14.4); White Blood Count 16.8 K/mm3 (4.8-10.8)
[2021-12-12] MEDS: diphenhydrAMINE HCl INJ 50 MG/ML VIAL 25 MG IV PUSH (09:30)
[2021-12-12] MEDS: PANTOPRAZOLE SODIUM IV 40 MG VIAL IV PUSH (09:30)
[2021-12-12 09:46] LABS: Lactic Acid Reflex 0.7 mmol/L (0.4-2.0)
[2021-12-12 09:52] LABS: Amphetamine Screen Urine Negative (Negative); Barbiturate Screen Urine Negative (Negative); Benzodiazepines Screen Urine Negative (Negative); Cannabinoid Screen Urine Positive (Negative); Cocaine Screen Urine Negative (Negative); Methadone Screen Urine Negative (Negative); Opiate Screen Urine Negative (Negative); Phencyclidine Screen Urine Negative (Negative)
[2021-12-12 09:53] LABS: Alanine Aminotransferase 25 U/L (16-63); Albumin Level 3.2 g/dL (3.4-5.0); Alkaline Phosphatase 64 U/L (46-116); Anion Gap 5 mmol/L (8-16); Aspartate Amino Transferase 14 U/L (15-37); Bilirubin,Total 0.3 mg/dL (0.00-1.00); Blood Urea Nitrogen 16 mg/dL (7-18); Calcium 8.7 mg/dL (8.5-10.1); Carbon Dioxide 25 mmol/L (21-32); Chloride 106 mmol/L (98-108); Estimated Glomerular Filt Rate > 60; Glucose 135 mg/dL (70-99); Lipase 237 U/L (73-393); Osmolality Calculated 285 mOsm/kg (285-295); Potassium 4.3 mmol/L (3.5-5.1); Sodium 136 mmol/L (136-145); Total Protein 6.9 g/dL (6.4-8.2)
[2021-12-12 10:49] VITALS: BP 152/86; PULSE 59; RESP 18; TEMP 36.2; O2SAT 97
[2021-12-12 10:54] LABS: Add Urine Microscopic? YES; Appearance Urine Clear (Clear); Bilirubin Urine Negative (Negative); Blood Urine 2+ (Negative); Color Urine Yellow (Yellow); Glucose Urine UA Negative (Negative); Ketones Urine Negative (Negative); Leukocyte Esterase Ur Negative LEU/UL (Negative); Nitrate Urine Negative (Negative); Protein Urine Negative (Negative); Specific Grav Ur >= 1.030 (1.010-1.020); Urobilinogen Urine 0.2 mg/dL (0.2-1.0); pH Urine 5.5 (5.0-8.0)
[2021-12-12 10:58] LABS: Bacteria Urine Trace /hpf; Squamous Epithelial Cell Urine Rare /hpf (Few); WBC Urine None seen /hpf (0-3)
== END 2021-12-12 10:56 | disposition home or self-care (01) ==
PROVIDERS: Emergency Provider Emergency Medicine; PCP Family Medicine
DX: K52.9 Noninfective gastroenteritis and colitis, unspecified (principal); K57.30 Diverticulosis of large intestine without perforation or abscess without bleeding; K21.9 Gastro-esophageal reflux disease without esophagitis; H35.30 Unspecified macular degeneration; H54.8 Legal blindness, as defined in USA; M54.9 Dorsalgia, unspecified; G89.29 Other chronic pain; G51.0 Bell's palsy; F17.210 Nicotine dependence, cigarettes, uncomplicated; F32.A Depression, unspecified; F41.9 Anxiety disorder, unspecified
CPT/HCPCS: 36415; 74176; 80053; 80307; 81001; 83605; 83690; 85025; 96374; 96375; 99284; C9113; J1200; J2405

== ENCOUNTER 2022-03-04 15:11 | Emergency (ER) | payer MEDICARE, MEDICAID, SELFPAY ==
--- NOTE | ~2022-03-04 | XR_ITS ---
EXAMINATION: XR chest 1V portable INDICATION: Leukocytosis TECHNIQUE: Portable AP chest at 1837 hours COMPARISON: 11/08/2021 FINDINGS: Lucencies in the upper lung zones are consistent with emphysema. The lungs are free of acut e opacities. No pleural effusion or pneumothorax. The cardiomediastinal silhouette is normal. IMPRESSION: 1. No acute cardiopulmonary abnormality. Reviewed, dictated and finalized at location F. ANICAL MANAGER
--- NOTE | ~2022-03-04 | CT_ITS ---
EXAMINATION: CT abdomen pelvis wo con DATE: 03/04/2022 16:31 INDICATION: Epigastric abdominal pain TECHNIQUE: Computed tomography (CT) of the abdomen and pelvis was performed without intravenous contr ast. The dose-length product (DLP) was 231.06 mGy-cm. Automated exposure control and iterative recons truction technique were employed. COMPARISON: 12/12/2021 FINDINGS: There is mild emphysema of the visualized lung bases. There is a small sliding hiatal herni a. The heart size is normal. Again noted is a chronic 5 mm nodule of the right middle lobe. Within th e limitations of noncontrast examination, the liver, spleen, pancreas, gallbladder, and adrenal gland s are normal. There is a 2 mm nonobstructing stone of the right kidney. The left kidney is unremarkab le. No pathologically enlarged abdominal or pelvic lymph nodes are identified. There is no free intra peritoneal gas or evidence of bowel obstruction. There is a left inguinal hernia containing a short s egment of nonobstructed small bowel. There is a right inguinal hernia containing fat. There is mild l umbar spondylosis. IMPRESSION: 1. No CT correlate for the patient's symptoms. 2. Bilateral inguinal hernias which contain a short segment of nonobstructed small bowel on the left and fat on the right. Reviewed, dictated and finalized at location F. T AVAILABILITY LEADER IMPRESSION: 1. No CT correlate for the patient's symptoms. 2. Bilateral inguinal hernias which contain a short segment of nonobstructed sm all bowel on the left and fat on the right.
[2022-03-04 15:25] VITALS: BP 135/88; PULSE 102; RESP 18; TEMP 37.1; O2SAT 95
[2022-03-04] MEDS: ONDANSETRON INJ 4 MG/2 ML VIAL IV PUSH (16:11)
[2022-03-04 16:12] LABS: Basophils Absolute Auto 0.03 K/mm3 (0.00-0.10); Basophils Percent Auto 0.2 % (0.0-1.0); Eosinophils Absolute Auto 0.01 K/mm3 (0.02-0.50); Eosinophils Percent Auto 0.1 % (1.0-6.0); Hematocrit 45.4 % (40.0-54.0); Hemoglobin 15.5 g/dL (14.0-18.0); Immature Granulocyte Percent A 0.5 % (0.0-0.0); Lymphocytes Absolute Auto 1.92 K/mm3 (1.10-4.50); Lymphocytes Percent Auto 10.2 % (18.0-42.0); Mean Corpuscular HGB Conc 34.1 g/dL (32.0-36.0); Mean Corpuscular Hemoglobin 31.6 pg (27.0-31.0); Mean Corpuscular Volume 92.5 fL (78.0-102.0); Mean Platelet Volume 9.8 fl (8.7-11.0); Monocytes Percent Auto 5.8 % (2.0-11.0); Neutrophils Absolute Auto 15.7 K/mm3 (1.7-7.2); Neutrophils Percent Auto 83.2 % (50.0-70.0); Platelet Count Result 288 K/mm3 (150-420); Red Blood Count 4.91 M/mm3 (4.70-6.10); Red Cell Distribution Width 13.4 % (11.6-14.4); White Blood Count 18.9 K/mm3 (4.8-10.8)
[2022-03-04] MEDS: SODIUM CHLORIDE 0.9% IV 1,000 ML 999 ML IV CONT (16:12)
[2022-03-04] MEDS: PANTOPRAZOLE SODIUM IV 40 MG VIAL IV PUSH (16:15)
[2022-03-04] MEDS: KETOROLAC 30 MG/ML VIAL (*BKC) IM (16:16)
[2022-03-04 16:27] LABS: Alanine Aminotransferase 19 U/L (16-63); Albumin Level 3.2 g/dL (3.4-5.0); Alkaline Phosphatase 71 U/L (46-116); Anion Gap 8 mmol/L (8-16); Aspartate Amino Transferase 12 U/L (15-37); Bilirubin,Total 0.7 mg/dL (0.00-1.00); Blood Urea Nitrogen 18 mg/dL (7-18); Calcium 8.7 mg/dL (8.5-10.1); Carbon Dioxide 28 mmol/L (21-32); Chloride 105 mmol/L (98-108); Estimated CRCL calculation 61 ml/min; Estimated Glomerular Filt Rate > 60; Glucose 113 mg/dL (70-99); Lipase 63 U/L (73-393); Osmolality Calculated 294 mOsm/kg (285-295); Potassium 4.4 mmol/L (3.5-5.1); Sodium 141 mmol/L (136-145); Total Protein 7.4 g/dL (6.4-8.2)
[2022-03-04 16:30] LABS: Lactic Acid Reflex 1.1 mmol/L (0.4-2.0)
[2022-03-04 17:03] VITALS: BP 140/74; PULSE 65; RESP 19; TEMP 37.3; O2SAT 96
[2022-03-04 17:10] LABS: Add Urine Microscopic? YES; Bilirubin Urine Negative (Negative); Blood Urine 2+ (Negative); Color Urine Yellow (Yellow); Glucose Urine UA Negative (Negative); Ketones Urine Negative (Negative); Leukocyte Esterase Ur Negative LEU/UL (Negative); Nitrate Urine Negative (Negative); Protein Urine Negative (Negative); Specific Grav Ur >= 1.030 (1.010-1.020); Urobilinogen Urine 0.2 mg/dL (0.2-1.0)
[2022-03-04 17:16] LABS: Appearance Urine Slightly Cloudy (Clear); Bacteria Urine Trace /hpf; Mucus Urine Few /lpf; Squamous Epithelial Cell Urine Few /hpf (Few); WBC Urine None seen /hpf (0-3)
[2022-03-04 18:22] VITALS: BP 125/77; PULSE 66; RESP 18; TEMP 36.9; O2SAT 95
--- NOTE | 2022-03-04 18:49 | ED.ABDPAIN ---
HPI - Abdominal Pain General Chief Complaint: Abdominal Pain Stated Complaint: stomach pain Time Seen by Provider: 03/04/22 15:13 Source: patient and RN notes reviewed Mode of arrival: ambulatory Limitations: no limitations History of Present Illness MD elicited complaint: abdominal pain Pertinent past history: gastritis Onset (ago): day(s) (4) Pain Consistency: constant and colicky Location: epigastric Severity: mild Pain scale (0-10): 5 Quality: cramping and aching Radiation: none Migration to: no migration Exacerbating factors: nothing Relieving factors: nothing Associated symptoms: nausea Related Data Allergies Allergy/AdvReac Type Severity Reaction Status Date / Time No Known Allergies Allergy Verified 12/06/21 06:46 Review of Systems Review of Systems: All systems reviewed & are unremarkable except as noted in HPI and below Constitutional: Constitutional: Reports no additional constitutional complaints Eyes: Eyes: Reports no additional eye complaints ENT: Reports system reviewed and no additional complaints, except as documented Cardiovascular: Cardiovascular: Reports no additional cardiovascular complaints Respiratory: Respiratory: Reports no additional respiratory complaints Gastrointestinal: Gastrointestinal: Reports abdominal pain and Reports nausea Musculoskeletal: Musculoskeletal: Reports no additional musculoskeletal complaints Integumentary/Breasts: Skin/Breast: Reports system reviewed and no additional complaints, except as docu Neurologic: Reports system reviewed and no additional complaints, except as documented Psychiatric: Psychiatric: Reports no additional psychiatric complaints Endocrine: Endocrine: Reports no additional endocrine complaints Hematologic/Lymphatic: Hematologic/Lymphatic: Reports no additional hematologic/lymphatic complaints Allergic/Immunologic: Allergic/Immunologic: Reports no additional allergic/immunologic complaints [facility] Past Medical History Medical History Anxiety 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 Bilateral nephrolithiasis June 22, 2019 CT of abdomen and pelvis with contrast at [facility] [place] [facility]. Biliary sludge C. 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 Marihuana dependence Nausea & vomiting Tobacco dependence Surgical History Surgical History History of appendectomy History of eye surgery As a child. History of inguinal hernia repair (~07/2013) Bilateral. Family History Family History Other Family history not known due to adoption Patient grew up in foster care and does not know his biological family or any medical history regarding such. Social History Social History Social History: The patient lives in [place] with his . They have 4 grown children. 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 He smokes 0.5 packs of cigarettes per day, but at most smoked 1.5 packs of cigarettes per day while he was driving. He uses marijuana socially. He drinks alcohol perhaps 1 time a month, and in moderation. He designates his , Sharon, as his surrogate decision maker and he wishes to be a full code. Smoking packs per day: 0.5 Smoking cigarettes per day: 10.0 Years smoked: 40 Smoking pack-years: 20.00 Smoking status: Current every day smoker Tobacco type: cigarettes Second hand tobac
[2022-03-04 19:03] LABS: Strep Group A RT-PCR Negative (Negative)
[2022-03-04 19:11] LABS: Influenza A QL RT-PCR Negative (Negative); Influenza B QL RT-PCR Negative (Negative); SARS-CoV-2 RNA PCR Negative (Negative)
[2022-03-04 19:35] VITALS: BP 129/69; PULSE 68; RESP 16; TEMP 36.7; O2SAT 98
--- NOTE | 2022-03-04 19:55 | PC.NURSE ---
1914 pt is awaiting lab results for dc. pt denies any needs or complaints. pt is watching tv without distress. vss per monitor.
--- NOTE | 2022-03-11 14:00 | PC.NURSE ---
BLOOD CULTURE FINAL RESULTS X2, NO GROWTH AFTER 5 DAYS. NO ACTION NEEDED
== END 2022-03-04 19:35 | disposition home or self-care (01) ==
PROVIDERS: Emergency Provider Emergency Medicine; PCP Family Medicine
DX: D72.829 Elevated white blood cell count, unspecified (principal); K29.70 Gastritis, unspecified, without bleeding; Z20.822 Contact with and (suspected) exposure to COVID-19; F17.200 Nicotine dependence, unspecified, uncomplicated; K21.9 Gastro-esophageal reflux disease without esophagitis
CPT/HCPCS: 36415; 71045; 74176; 80053; 81001; 83605; 83690; 85025; 87040; 87502; 87651; 96361; 96365; 96372; 96375; 99284; C9113; J0696; J1885; J2405; J7030; U0003; U0005

== ENCOUNTER 2022-06-17 09:18 | Emergency (ER) | payer MEDICARE, MEDICAID, SELFPAY ==
[2022-06-17] VITALS (19 sets, daily range): BP systolic 115–149; BP diastolic 85–128; PULSE 60–101; RESP 13–28; TEMP 35.5; O2SAT 92–100
--- NOTE | ~2022-06-17 | CT_ITS ---
EXAMINATION: CT abdomen pelvis w con DATE: 06/17/2022 10:57 INDICATION: Follow-up for abdominal pain. Nausea and vomiting. TECHNIQUE: Computed tomography (CT) of the abdomen and pelvis was performed with 100 cc Omnipaque 350 intravenous contrast. The dose-length product was 236.12 mGy-cm. Automated exposure control and iter ative reconstruction technique were employed. COMPARISON: CT dated 03/04/2022 FINDINGS: Chronic 4 mm right middle lobe nodule. No significant pleural or pericardial effusion. Hear t size normal. No significant pleural or pericardial effusion. There is a 2 mm nonobstructing right r enal stone at the lower pole. The bladder is unremarkable. No significant hydronephrosis. There are s mall subcentimeter hypodensities of the kidneys, most likely benign cysts. Fatty infiltration of the liver. The spleen, pancreas, adrenal glands are unremarkable. Gallbladder i s present. There are surgical changes of bilateral inguinal hernia repair. Nonobstructive bowel gas p attern. There are surgical clips in the right lower abdomen, likely from prior appendectomy. No signi ficant vascular abnormality. No lymphadenopathy. No free air or free fluid. Small hiatal hernia. IMPRESSION: 1. No acute abdominal abnormality. Reviewed, dictated and finalized at location B. GE MENDER
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
--- NOTE | 2022-06-17 09:33 | ED.ABDPAIN ---
HPI - Abdominal Pain General Chief Complaint: Abdominal Pain Stated Complaint: Fell off couch hit head on table,shaking,confused Time Seen by Provider: 06/17/22 09:19 History of Present Illness HPI narrative: Pt presents with abdominal pain which is chronic but patient says it is much worse today. Pt complains of dizziness but no one sided weakness. Pt has mild IRVIN. Pt says dizziness is worse when he moves head and better when still. Family says he is intermittently confused and fell this morning and hit his head but did not lose consciousness. Pt had some type of abdominal surgery a couple of weeks ago. Pt says the abdominal pain is generalized and constant. Pt feels nauseated. 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 Bilateral nephrolithiasis June 22, 2019 [place] [facility] [place] [facility]. Biliary sludge C. 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 Marihuana dependence Nausea & vomiting Tobacco dependence Surgical History Surgical History History of appendectomy History of eye surgery As a child. History of inguinal hernia repair (~07/2013) Bilateral. Family History Family History Other Family history not known due to adoption Patient grew up in foster care and does not know his biological family or any medical history regarding such. Social History Social History Social History: The patient lives in [place] with his . They have 4 grown children. 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 He smokes 0.5 packs of cigarettes per day, but at most smoked 1.5 packs of cigarettes per day while he was driving. He uses marijuana socially. He drinks alcohol perhaps 1 time a month, and in moderation. He designates his , Sharon, as his surrogate decision maker and he wishes to be a full code. Smoking packs per day: 0.5 Smoking cigarettes per day: 10.0 Years smoked: 40 Smoking pack-years: 20.00 Smoking status: Current every day smoker Tobacco type: cigarettes Second hand tobacco smoke exposure: Yes Alcohol intake: never Alcohol use details: rarely Substance use: current Substance use type: marijuana Other substance usage details: 3x an week Living arrangements: with family Spiritual care concerns: No Exam Const: General: healthy appearing and no acute distress Nutritional Appearance: well nourished Orientation/consciousness: patient oriented x3 Limitations: no limitations Other: very anxious HENMT: Head: normal to inspection Eyes: Conjunctivae: conjunctivae normal EOM: EOMs intact bilaterally Neck: Neck: normal visual inspection Chest: Chest palpation & inspection: normal inspection of the chest Resp: Effort & Inspection: normal respiratory effort Auscultation: clear to auscultation bilaterally Cardio: Rate: regular rate Rhythm: regular rhythm GI: GI Palp: Yes Soft to palpation and Yes Tenderness to palpation present (GI) (dissuse tenderness to light palpation) Auscultation: normal bowel sounds
[2022-06-17 09:48] LABS: Basophils Absolute Auto 0.08 K/mm3 (0.00-0.10); Basophils Percent Auto 0.5 % (0.0-1.0); Eosinophils Absolute Auto 0.05 K/mm3 (0.02-0.50); Eosinophils Percent Auto 0.3 % (1.0-6.0); Hematocrit 46.6 % (40.0-54.0); Hemoglobin 15.9 g/dL (14.0-18.0); Immature Granulocyte Absolute 0.07 K/mm3 (0.00-0.00); Immature Granulocyte Percent A 0.5 % (0.0-0.0); Lymphocytes Percent Auto 12.5 % (18.0-42.0); Mean Corpuscular HGB Conc 34.1 g/dL (32.0-36.0); Mean Corpuscular Hemoglobin 30.7 pg (27.0-31.0); Mean Platelet Volume 9.8 fl (8.7-11.0); Monocytes Absolute Auto 0.53 K/mm3 (0.10-0.90); Monocytes Percent Auto 3.5 % (2.0-11.0); Neutrophils Absolute Auto 12.6 K/mm3 (1.7-7.2); Neutrophils Percent Auto 82.7 % (50.0-70.0); Platelet Count Result 288 K/mm3 (150-420); Red Blood Count 5.18 M/mm3 (4.70-6.10); Red Cell Distribution Width 13.3 % (11.6-14.4); White Blood Count 15.2 K/mm3 (4.8-10.8)
[2022-06-17] MEDS: SODIUM CHLORIDE 0.9% IV 1,000 ML 999 ML IV CONT (09:58)
[2022-06-17] MEDS: ONDANSETRON INJ 4 MG/2 ML VIAL IV PUSH (09:59)
[2022-06-17] MEDS: FAMOTIDINE 20 MG/2 ML VIAL IV PUSH (10:00)
[2022-06-17] MEDS: KETOROLAC 15 MG/ML VIAL (*BKC) IV PUSH (10:01)
[2022-06-17 10:07] LABS: Alanine Aminotransferase 20 U/L (16-63); Albumin Level 3.1 g/dL (3.4-5.0); Alkaline Phosphatase 76 U/L (46-116); Anion Gap 9 mmol/L (8-16); Aspartate Amino Transferase 15 U/L (15-37); Bilirubin,Total 0.3 mg/dL (0.00-1.00); Blood Urea Nitrogen 18 mg/dL (7-18); Carbon Dioxide 26 mmol/L (21-32); Chloride 104 mmol/L (98-108); Estimated CRCL calculation 73 ml/min; Estimated Glomerular Filt Rate > 60; Glucose 154 mg/dL (70-99); Lipase 37 U/L (16-77); Osmolality Calculated 292 mOsm/kg (285-295); Sodium 139 mmol/L (136-145); Total Protein 7.3 g/dL (6.4-8.2)
[2022-06-17 10:11] LABS: Lactic Acid Reflex 1.7 mmol/L (0.4-2.0); Partial Thromboplastin Time 26.6 SEC (23.90-30.70); Prothrombin Time 10.5 Seconds (9.50-12.10)
[2022-06-17 10:13] LABS: Calcium 8.6 mg/dL (8.5-10.1)
[2022-06-17] MEDS: MECLIZINE HCL 25 MG TABLET 50 MG PO (10:21)
--- NOTE | 2022-06-17 10:24 | PC.NURSE ---
PT HAS BEEN GIVEN MEDICATION FOR DIZZINESS, WARM BLANKET PROVIDED. PT'S SON HAS LEFT. PHONE NUMBER HAS BEEN PROVIDED. [phone]. PT IS AWAITING CT AND RESULTS AT THIS TIME. WILL CONTINUE TO MONITOR.
--- NOTE | 2022-06-17 11:39 | PC.NURSE ---
CALLS FOR STATUS UPDATED, SHE IS ADVISED PT WILL BE DC HOME. TO CALL SON FOR TRANSPORT WHEN HE IS READY.
--- NOTE | 2022-06-17 11:48 | PC.NURSE ---
PT IS AWAKEN, REPORTS DIZZINESS HAS IMPROVED.
--- NOTE | 2022-06-17 12:03 | PC.NURSE ---
DAUGHTER CALLS REQUESTING PSYCH EVALUATION, REPORTING SHE IS POA. PT IS A & O X4 AT THIS TIME, DENIES SI OR HI. SON REPORTED INTERMITTENT CONFUSION TO ERP UPON ARRIVAL. EXPLAINED TO DAUGHTER NO MEDICAL INFORMATION COULD BE PROVIDED OVER THE PHONE. ERP SUGGESTED PT BE TAKEN TO PMD FOR FURTHER EVALUATION IF FAMILY FELT THE NEED FOR PSYCHIATRIC EVALUATION. PT VERBALIZED UNDERSTANDING OF DC AND FOLLOW UP INSTRUCTIONS. PT WAS AMBULATORY TO WITHOUT DIFFICULTY. SON TO TRANSPORT HOME.
== END 2022-06-17 12:00 | disposition home or self-care (01) ==
PROVIDERS: Emergency Provider Emergency Medicine; PCP Family Medicine
DX: R10.84 Generalized abdominal pain (principal); R42 Dizziness and giddiness; F17.210 Nicotine dependence, cigarettes, uncomplicated; Z98.890 Other specified postprocedural states; W08.XXXA Fall from other furniture, initial encounter
CPT/HCPCS: 36415; 70450; 74177; 80053; 83605; 83690; 85025; 85610; 85730; 96361; 96374; 96375; 99284; A9270; J1885; J2405; J7030; Q9967

== ENCOUNTER 2022-08-28 12:16 | Emergency (ER) | payer MEDICARE, MEDICAID, SELFPAY ==
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
--- NOTE | ~2022-08-28 | XR_ITS ---
XR elbow LT min 3V 08/28/2022 13:02 Indication: Left elbow pain Procedure: 4 views left elbow Comparison: No prior studies for comparison. Findings: No fracture, subluxation or dislocation. There is anatomic alignment of the elbow. No signi ficant joint effusion. No foreign bodies. Impression: 1: No acute fracture. Reviewed, dictated and finalized at location B. Impression: 1: No acute fracture.
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
[2022-08-28 12:25] VITALS: BP 123/95; PULSE 101; RESP 20; TEMP 37.4; O2SAT 95
[2022-08-28] MEDS: KETOROLAC (*BKC) 60 MG/2 ML VIAL IM (12:33)
[2022-08-28] MEDS: TETANUS,DIPHTHERIA,AC PERTUSSIS ADULT 0.5 ML (ADACEL) IM (12:34)
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
--- NOTE | 2022-08-28 13:08 | PC.NURSE ---
1310 [facility] ragini here to see pt
[2022-08-28 13:30] VITALS: BP 142/82; PULSE 93; RESP 20; TEMP 37.1; O2SAT 95
== END 2022-08-28 13:30 | disposition home or self-care (01) ==
PROVIDERS: Emergency Provider Emergency Medicine; PCP Family Medicine
DX: S20.223A Contusion of bilateral back wall of thorax, initial encounter (principal); F17.210 Nicotine dependence, cigarettes, uncomplicated; Z23 Encounter for immunization; Y00.XXXA Assault by blunt object, initial encounter; Y92.007 Garden or yard of unspecified non-institutional (private) residence as the place of occurrence of the external cause
CPT/HCPCS: 70486; 71250; 73080; 90471; 90715; 96372; 99284; J1885

== ENCOUNTER 2022-08-30 22:04 | Emergency (ER) | payer MEDICARE, MEDICAID, SELFPAY ==
[2022-08-30 22:13] VITALS: BP 132/80; PULSE 99; RESP 18; O2SAT 93
[2022-08-30 22:18] VITALS: BP 132/80; PULSE 95; TEMP 37; O2SAT 95
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
[2022-08-30] MEDS: ORPHENADRINE CITRATE 30 MG/ML 2 ML VIAL 60 MG IM (23:11)
[2022-08-30] MEDS: HYDROmorphone HCL INJ (*CRX) 2 MG/ML VIAL 1 MG IM (23:12)
[2022-08-31 00:32] VITALS: BP 114/80; PULSE 70; O2SAT 95
[2022-08-31 00:33] VITALS: BP 114/80; PULSE 70; RESP 17; TEMP 37.2; O2SAT 95
== END 2022-08-31 00:51 | disposition home or self-care (01) ==
PROVIDERS: Emergency Provider Emergency Medicine; PCP Family Medicine
DX: M54.6 Pain in thoracic spine (principal); F17.210 Nicotine dependence, cigarettes, uncomplicated; Y09 Assault by unspecified means
CPT/HCPCS: 96372; 99284; J1170; J2360

== ENCOUNTER 2022-10-01 18:38 | Emergency (ER) | payer MEDICARE, MEDICAID, SELFPAY ==
[2022-10-01 18:40] VITALS: BP 148/89; PULSE 93; RESP 18; TEMP 36.8; O2SAT 96
--- NOTE | 2022-10-01 19:11 | PC.NURSE ---
DOG BITE FORM COMPLETED AND FAXED TO [facility]. CALL WITH MESSAGE LEFT DIRECTED ON FORM BY THIS RN.
--- NOTE | 2022-10-01 19:28 | ED.ANIMALBIT ---
HPI - Animal Bite General Chief Complaint: Animal Bite Stated Complaint: dog bite Time Seen by Provider: 10/01/22 18:50 Source: patient Mode of arrival: ambulatory Limitations: no limitations History of Present Illness HPI narrative: this is a 56-year-old male who presents after he received a dog bite local dog in the neighborhood latched onto his right forearm causing a laceration to the mid forearm approximately2.5cm in length mildly gaping with no numbness or tingling in his in his arm with a good range of motion. complaint: animal bite Onset (ago): hour(s) Animal: dog Description of animal: unknown animal Mechanism: bite Location: other Location - Extremities: Right: forearm ( laceration gaping approximately 2.5cm in length) Related Data Home Medications Medication Instructions Recorded Confirmed omeprazole 20 mg capsule,delayed 20 mg PO BID 10/01/22 10/01/22 release Allergies Allergy/AdvReac Type Severity Reaction Status Date / Time No Known Allergies Allergy Verified 10/01/22 18:56 Review of Systems Review of Systems: All systems reviewed & are unremarkable except as noted in HPI and below PMFSH Past Medical History Medical History Anxiety 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 Bilateral nephrolithiasis June 22, 2019 CT of abdomen and pelvis with contrast at [facility] in [facility]. Biliary sludge C. 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 Marihuana dependence Nausea & vomiting Tobacco dependence Surgical History Surgical History History of appendectomy History of eye surgery As a child. History of inguinal hernia repair (~07/2013) Bilateral. Family History Family History Other Family history not known due to adoption Patient grew up in foster care and does not know his biological family or any medical history regarding such. Social History Social History Social History: The patient lives in [place] with his . They have 4 grown children. 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 He smokes 0.5 packs of cigarettes per day, but at most smoked 1.5 packs of cigarettes per day while he was driving. He uses marijuana socially. He drinks alcohol perhaps 1 time a month, and in moderation. He designates his , Sharon, as his surrogate decision maker and he wishes to be a full code. Smoking packs per day: 0.5 Smoking cigarettes per day: 10.0 Years smoked: 40 Smoking pack-years: 20.00 Smoking status: Current every day smoker Tobacco type: cigarettes Second hand tobacco smoke exposure: Yes Alcohol intake: never Alcohol use details: rarely Substance use: current Substance use type: marijuana Other substance usage details: 3x an week Living arrangements: with family Spiritual care concerns: No Exam Const: General: healthy appearing Nutritional Appearance: well nourished Orientation/consciousness: patient oriented x3 Limitations: no limitations HENMT: Head: normal to inspection Eyes: Conjunctivae: conjunctivae normal Pupils: Equal, round and reactive pupils present Neck: Neck: normal visual inspection Chest: Chest palpation & inspection: normal inspection of the chest Cardio: Rate: regular rate Rhythm: regular rhythm GI: GI Palp: Yes Soft to palpation Back/Spine/Pelvis: Back: no CVA tendern
[2022-10-01] MEDS: LIDOCAINE HCL 1% LOCAL INJ 10 ML VIAL INFILTRATE (19:48)
[2022-10-01] MEDS: cefTRIAXone 1 GM, LIDOCAINE HCL 1% LOCAL INJ 2.1 ML IM (19:49)
[2022-10-01 20:21] VITALS: BP 123/88; PULSE 74; RESP 17; TEMP 36.9; O2SAT 94
== END 2022-10-01 20:56 | disposition home or self-care (01) ==
PROVIDERS: Emergency Provider Emergency Medicine; PCP Family Medicine
DX: S51.851A Open bite of right forearm, initial encounter (principal); F17.210 Nicotine dependence, cigarettes, uncomplicated; W54.0XXA Bitten by dog, initial encounter
CPT/HCPCS: 12001; 96372; 99283; J0696

== ENCOUNTER 2022-11-29 10:22 | Inpatient (IN) | payer MEDICARE, MEDICAID, SELFPAY ==
[2022-11-29] VITALS (35 sets, daily range): BP systolic 101–142; BP diastolic 62–97; PULSE 66–89; RESP 18–20; TEMP 36–36.9; O2SAT 89–98
--- NOTE | ~2022-11-29 | CT_ITS ---
EXAMINATION: CTA chest PE protocol DATE: 11/30/2022 06:13 INDICATION: Shortness of breath. TECHNIQUE: Computed tomography angiography (CTA) of the chest was performed with 100 mL Omnipaque-350 intravenous contrast timed to evaluate the pulmonary arteries. Coronal maximum intensity projection 3D-reconstructions were created by the technologist. Automated exposure control and iterative reconst ruction technique were employed. The dose-length product was 226.28 mGy-cm. COMPARISON: Chest CT 08/28/2022 FINDINGS: There is moderate emphysema. There is mild atelectasis bilaterally. There are trace pleural effusions. The heart size is normal. No pericardial effusion. There is no pulmonary embolus. There i s contrast in the gallbladder. There is mild thoracic spondylosis. IMPRESSION: 1. No pulmonary embolus. 2. Moderate emphysema. Reviewed, dictated and finalized at location A.
--- NOTE | ~2022-11-29 | XR_ITS ---
EXAMINATION: XR chest 1V portable INDICATION: Cough TECHNIQUE: Portable AP chest at 1105 hours COMPARISON: 03/04/2022 FINDINGS: There is severe emphysema. Minimal airspace opacities are present in the mid and lower lung zones. No pleural effusion or pneumothorax. The cardiomediastinal silhouette is normal. IMPRESSION: 1. Minimal airspace opacities of the mid and lower lung zones, consistent with atelectasis versus pne umonia. 2. Severe emphysema. Reviewed, dictated and finalized at location A. IMPRESSION: 1. Minimal airspace opacities of the mid and lower lung zones, consistent with atelectasis versus pneumonia. 2. Severe emphysema.
--- NOTE | ~2022-11-29 | CT_ITS ---
EXAMINATION: CT abdomen pelvis w con INDICATION: Abdominal pain TECHNIQUE: Computed tomographic images of the abdomen and pelvis were obtained after the administrati on of 100 cc of Omnipaque 350 intravenous contrast. The dose-length product (DLP) was 258.92 mGy-cm. Automated exposure control and iterative reconstruction technique were employed. COMPARISON: 06/17/2022 FINDINGS: Minimal dependent atelectasis is present in the lung bases. The heart size is normal. The l iver, spleen, pancreas, gallbladder, and adrenal glands are normal. Nonobstructing stones of the righ t kidney measure up to 2 mm. Cysts of the left kidney measure up to 9 mm. No pathologically enlarged abdominal or pelvic lymph nodes are identified. No free intraperitoneal gas or evidence of bowel obst ruction. Changes of appendectomy are noted. There is colonic diverticulosis. There is inflammatory st randing adjacent to a diverticulum of the proximal descending colon. There is mild lumbar spondylosis . IMPRESSION: 1. Diverticulitis of the proximal descending colon. Reviewed, dictated and finalized at location A.
--- NOTE | ~2022-11-29 | XR_ITS ---
EXAMINATION: XR chest 2V DATE: 12/02/2022 09:54 INDICATION: Pneumonia. Chronic obstructive pulmonary disease. TECHNIQUE: Frontal and lateral views of the chest were obtained. COMPARISON: Chest view 11/29/2022, chest CT 11/30/2022 FINDINGS: The lungs are hyperexpanded with lucencies, consistent with emphysema. There is mild atelec tasis in right mid and lower lung zones and left lower lung zone. No pleural effusion or pneumothorax . The heart size is normal. IMPRESSION: 1. Mild atelectasis in right mid and lower lung zones and left lower lung zone. 2. Emphysema. Reviewed, dictated and finalized at location A.
--- NOTE | 2022-11-29 10:32 | ED.ABDPAIN ---
HPI - Abdominal Pain General Chief Complaint: Abdominal Pain Stated Complaint: abdominal pain and vomiting Time Seen by Provider: 11/29/22 10:32 Source: patient Mode of arrival: ambulatory Limitations: no limitations History of Present Illness HPI narrative: Patient is 56-year-old white male complains of abdominal pain nausea vomiting and diarrhea since 8:00 p.m. last night associated with left flank pain mostly lower abdominal pain it out of 10 he has not taken anything for the pain. Says he has had 5 or 6 yellow liquid emesis since the onset. His pain is worse when he lays on his side better when he lays supine. He has had a cough for few weeks thinks he had a fever may be this morning because he was sweating and changes shorts. He has had a runny nose no blood in his stool or black stools his stools have been loose watery nonbloody he has had 8 or 9 since the onset. Says he feels dizzy if he stands up Denies any problems voiding eating or drinking shortness of breath sore throat problems walking talking seeing or hearing bleeding or bruising rash or itching swelling lumps or bumps. denies any history of heart disease liver disease hypertension diabetes anemia thyroid disease or cancer. Denies any other complaints. Past medical history: Primary care is Dr. Cox COPD kidney stones, he is on disability for being legally blind, irritable bowel syndrome, chronic back pain, review of old records shows he has got chronic abdominal pain medications: he takes no medicines regularly social history: Does not work legally blind on disability. Smokes cigarettes and marijuana. Denies alcohol or Other illicit drug use. 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 Bilateral nephrolithiasis June 22, 2019 CT of abdomen and pelvis with contrast at [facility] in [facility]. Biliary sludge C. 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 Marihuana dependence Nausea & vomiting Tobacco dependence Surgical History Surgical History History of appendectomy History of eye surgery As a child. History of inguinal hernia repair (~07/2013) Bilateral. Family History Family History Other Family history not known due to adoption Patient grew up in foster care and does not know his biological family or any medical history regarding such. Social History Social History Social History: The patient lives in [place] with his . They have 4 grown children. 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 He smokes 0.5 packs of cigarettes per day, but at most smoked 1.5 packs of cigarettes per day while he was driving. He uses marijuana socially. He drinks alcohol perhaps 1 time a month, and in moderation. He designates his , Sharon, as his surrogate decision maker and he wishes to be a full code. Smoking packs per day: 0.5 Smoking cigarettes per day: 10.0 Years smoked: 40 Sm
[2022-11-29] MEDS: ONDANSETRON INJ 4 MG/2 ML VIAL IV PUSH ×3 (10:50→18:28)
[2022-11-29] MEDS: fentaNYL CITRATE INJ (*CRX) 100 MCG/2 ML VIAL 50 MCG IV PUSH ×2 (10:50→14:23)
[2022-11-29] MEDS: SODIUM CHLORIDE 0.9% IV 1,000 ML 999 ML IV CONT (10:50)
--- NOTE | 2022-11-29 11:21 | PC.NURSE ---
1053 lab notified of lab draw need 1122 labs drawn at this time
[2022-11-29 11:37] LABS: Hematocrit 42.3 % (40.0-54.0); Hemoglobin 14.4 g/dL (14.0-18.0); Mean Corpuscular Hemoglobin 31.8 pg (27.0-31.0); Mean Corpuscular Volume 93.4 fL (78.0-102.0); Platelet Count Result 248 K/mm3 (150-420); Red Blood Count 4.53 M/mm3 (4.70-6.10); Red Cell Distribution Width 13.6 % (11.6-14.4)
[2022-11-29 11:43] LABS: Bilirubin Urine Negative (Negative); Blood Urine 2+ (Negative); Color Urine Yellow (Yellow); Glucose Urine UA Negative (Negative); Ketones Urine Negative (Negative); Leukocyte Esterase Ur Negative LEU/UL (Negative); Nitrate Urine Negative (Negative); Protein Urine Negative (Negative); Specific Grav Ur >= 1.030 (1.010-1.020); Urobilinogen Urine 0.2 mg/dL (0.2-1.0)
[2022-11-29 11:46] LABS: Alanine Aminotransferase 8 U/L (16-63); Albumin Level 2.8 g/dL (3.4-5.0); Alkaline Phosphatase 80 U/L (46-116); Anion Gap 7 mmol/L (8-16); Aspartate Amino Transferase < 10 U/L (15-37); Bilirubin,Total 0.5 mg/dL (0.00-1.00); Blood Urea Nitrogen 17 mg/dL (7-18); Carbon Dioxide 29 mmol/L (21-32); Chloride 107 mmol/L (98-108); Estimated CRCL calculation 69 ml/min; Estimated Glomerular Filt Rate > 60; Glucose 158 mg/dL (70-99); Lipase 17 U/L (16-77); Magnesium 1.7 mg/dL (1.8-2.4); Osmolality Calculated 300 mOsm/kg (285-295); Sodium 143 mmol/L (136-145); Total Protein 6.6 g/dL (6.4-8.2); Troponin I 12.6 ng/L (0.00-60.4)
[2022-11-29 11:58] LABS: INR 0.9; Partial Thromboplastin Time 25.4 SEC (23.90-30.70); Prothrombin Time 10.4 Seconds (9.50-12.10)
[2022-11-29 11:58] LABS: Add Urine Microscopic? YES; Appearance Urine Turbid (Clear); RBC Urine None seen /hpf (0-2)
[2022-11-29 11:59] LABS: Amorphous Sediment Urine Heavy; Bacteria Urine 4+ /hpf
--- NOTE | 2022-11-29 12:09 | PC.NURSE ---
pt sleeping, called and updated on pending results
[2022-11-29] MEDS: MAGNESIUM SULF 2 GM/WATER 50ML 2 GM/50 ML BAG IVPB (14:24)
[2022-11-29] MEDS: SODIUM CHLORIDE 0.9% IV 1,000 ML 150 ML IV CONT (14:25)
[2022-11-29] MEDS: PIPERACILLN/TAZ 3.375GM/NS50ML 3.375 GM/50 ML BAG IVPB (14:41)
--- NOTE | 2022-11-29 15:15 | ADMGEN ---
This patient, Chucky Ojeda, was admitted to 2nd Floor Room 204-1. Patient/family oriented to hospital policies and general routines including ID bracelet, bed and alarms, visiting hours, pain management, procedures, bathroom and other care routines, personal items, smoking policy, room service/diet, and visiting hours. Information on how to activate the Rapid Response Team has been discussed. Patient/Family are encouraged to report perceived risks to care and to ask questions if they do not understand what they are told or what they should do.
--- NOTE | 2022-11-29 15:23 | PM.IMHP ---
H&P: HPI History of Present Illness Date/Time: 11/29/22 15:23 Chief Complaint: abdominal pain with nausea and vomiting Narrative: This is a 56-year-old male patient who presented to the emergency department today with severe lower abdominal pain cramping stabbing in nature rated 8/10 with associated nausea and vomiting. Patient has a history ureteral bowel disease, cyclic vomiting chronic marijuana use and prior diverticulitis. He also notes that he does not take any home medications except he has a rescue inhaler for history of COPD. Patient reports that he still smokes cigarettes and marijuana daily. Patient received 2 doses of Zofran, 2 doses of fentanyl and 1 dose of IV Zosyn in the emergency department before admission. 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 Bilateral nephrolithiasis June 22, 2019 CT of abdomen and pelvis with contrast at [facility] in [facility]. Biliary sludge C. 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 Marihuana dependence Nausea & vomiting Tobacco dependence Surgical History Surgical History History of appendectomy History of eye surgery As a child. History of inguinal hernia repair (~07/2013) Bilateral. Family History Family History Other Family history not known due to adoption Patient grew up in foster care and does not know his biological family or any medical history regarding such. Social History Social History Social History: The patient lives in [place] with his . They have 4 grown children. 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 He smokes 0.5 packs of cigarettes per day, but at most smoked 1.5 packs of cigarettes per day while he was driving. He uses marijuana socially. He drinks alcohol perhaps 1 time a month, and in moderation. He designates his , Sharon, as his surrogate decision maker and he wishes to be a full code. Smoking packs per day: 0.5 Smoking cigarettes per day: 10.0 Years smoked: 40 Smoking pack-years: 20.00 Smoking status: Current every day smoker Tobacco type: cigarettes Second hand tobacco smoke exposure: Yes Alcohol intake: never Alcohol use details: rarely Substance use: current Substance use type: marijuana Other substance usage details: 3x an week Living arrangements: with family Spiritual care concerns: No Meds Home Medications and Allergies Allergies Allergy/AdvReac Type Severity Reaction Status Date / Time No Known Allergies Allergy Verified 10/01/22 18:56 Vital Signs Vital Signs - 24 hr 11/29/22 10:22 11/29/22 10:30 11/29/22 11:25 Temperature 36.0 C L Pulse Rate 75 69 Respiratory Rate 20 20 Blood Pressure 142/96 H 136/97 H 119/66 Pulse Oximetry 95 98 Oxygen Delivery Room Air Room Air 11/29/22 11:25 11/29/22 11:30 11/29/22 11:31 Temperature Pulse Rate Respiratory Rate Blood Pressure 102/64 Pulse Oximetry 94 92 90 Oxygen Deliver
--- NOTE | 2022-11-29 15:48 | ECG_ITS ---
Measurements Intervals [place] Rate: 55 P: 53 WV: 123 QRS: 78 QRSD: 93 T: 66 QT: 401 QTc: 385 Interpretive Statements SINUS BRADYCARDIA NORMAL ECG COMPARED TO ECG 12/06/2021 11:54:07 NO SIGNIFICANT CHANGES Electronically Signed On 12-02-2022 13:30:51 CDT by Uri Soto M.D.
[2022-11-29] MEDS: AZITHROMYCIN 250 MG TABLET 500 MG PO (16:47)
[2022-11-29] MEDS: MORPHINE SULFATE (*CRX) 2 MG/ML INJ IV PUSH ×2 (18:29→23:10)
[2022-11-29] MEDS: IPRATROPIUM 0.5 MG/ALBUTEROL SULFATE 2.5 MG AMPUL.NEB 3 ML INHALATION (18:51)
[2022-11-29] MEDS: HYDROcodone/acetaminophen (*CRX) 5-325 MG TABLET 1 TAB PO (20:23)
[2022-11-29] MEDS: LACTATED RINGERS 1,000 ML 75 ML IV CONT (20:58)
[2022-11-30] VITALS (15 sets, daily range): BP systolic 89–109; BP diastolic 48–62; PULSE 59–90; RESP 16–20; TEMP 36.4–37.2; O2SAT 91–95; BMI 24.1
[2022-11-30] MEDS: IPRATROPIUM 0.5 MG/ALBUTEROL SULFATE 2.5 MG AMPUL.NEB 3 ML INHALATION ×5 (00:28→23:16)
[2022-11-30] MEDS: MORPHINE SULFATE (*CRX) 2 MG/ML INJ IV PUSH ×4 (05:14→21:35)
[2022-11-30 05:28] LABS: Basophils Absolute Auto 0.04 K/mm3 (0.00-0.10); Basophils Percent Auto 0.4 % (0.0-1.0); Eosinophils Absolute Auto 0.08 K/mm3 (0.02-0.50); Eosinophils Percent Auto 0.7 % (1.0-6.0); Hematocrit 36.8 % (40.0-54.0); Hemoglobin 12.5 g/dL (14.0-18.0); Immature Granulocyte Absolute 0.06 K/mm3 (0.00-0.00); Immature Granulocyte Percent A 0.5 % (0.0-0.0); Lymphocytes Absolute Auto 2.86 K/mm3 (1.10-4.50); Lymphocytes Percent Auto 25.1 % (18.0-42.0); Mean Corpuscular Hemoglobin 31.9 pg (27.0-31.0); Mean Corpuscular Volume 93.9 fL (78.0-102.0); Mean Platelet Volume 9.4 fl (8.7-11.0); Monocytes Absolute Auto 0.82 K/mm3 (0.10-0.90); Monocytes Percent Auto 7.2 % (2.0-11.0); Neutrophils Absolute Auto 7.5 K/mm3 (1.7-7.2); Neutrophils Percent Auto 66.1 % (50.0-70.0); Platelet Count Result 198 K/mm3 (150-420); Red Blood Count 3.92 M/mm3 (4.70-6.10); Red Cell Distribution Width 13.8 % (11.6-14.4); White Blood Count 11.4 K/mm3 (4.8-10.8)
--- NOTE | 2022-11-30 05:35 | PC.NURSE ---
Pt's SAO2 is 78% on room air; Oxygen started at 3 liters per nasal cannula and SAO2 increased to 93%. SAO2 decreased again so oxygen was increased to 5 liters per nasal cannula and SAO2 increased to 81%. Respiratory therapy came to see pt and placed pt on the venti mask at 40% and 8 liters of oxygen. SAO2 increased to 93%.
[2022-11-30 05:39] LABS: Anion Gap 6 mmol/L (8-16); Blood Urea Nitrogen 13 mg/dL (7-18); Carbon Dioxide 27 mmol/L (21-32); Chloride 108 mmol/L (98-108); Estimated CRCL calculation 73 ml/min; Estimated Glomerular Filt Rate > 60; Glucose 94 mg/dL (70-99); Osmolality Calculated 292 mOsm/kg (285-295); Potassium 3.7 mmol/L (3.5-5.1); Sodium 141 mmol/L (136-145)
--- NOTE | 2022-11-30 05:45 | PC.NURSE ---
Cash Pineda NP, was notified of changes in pt's respiratory status; New orders were received and noted for a CTA of the chest per PE protocol.
--- NOTE | 2022-11-30 06:48 | PM.IMPN ---
Progress Note: A&P Assessment and Plan (1) Acute diverticulitis: Code(s): K57.92 - Diverticulitis of intestine, part unspecified, without perforation or abscess without bleeding Status: Acute Assessment and Plan: 11/28: Inflammatory stranding adjacent to a diverticulum of the proximal descending colon. No mention abscess or perforation. Prior history in 2019 without surgical intervention. White blood cell count 16,000. Patient started on Zosyn in the emergency department. -IV antibiotics with Zosyn -Slow hydration with LR -BP was low on am check. Will give small bolus. -PRN pain medications and anti-emetics -Clear liquid diet, advance to full liquids at lunch, and then low fiber for dinner. (2) Community acquired pneumonia: Code(s): J18.9 - Pneumonia, unspecified organism Status: Acute Assessment and Plan: 11/28: Minimal airspace opacities consistent with atelectasis versus pneumonia. -Marajuana smoker -Required venturi mask overnight. Now satting 96% on 8L, 40% FiO2. On 3 L NC, titrate to keep sats >88%. -Azithromycin -Steroids IV Q 6 hours -Breathing treatments scheduled -CTA chest was negative for PE. Shows moderate emphysema. (3) Nausea vomiting and diarrhea: Code(s): R11.2 - Nausea with vomiting, unspecified; R19.7 - Diarrhea, unspecified Status: Acute Assessment and Plan: 11/28: History of irritable bowel disease and cyclic vomiting/cannabis use disorder; diverticulitis seen on abdominal CT. -PRN zofran and morphine -IVF -clear liquids and advanced as tolerated (4) Cyclical vomiting: Code(s): R11.15 - Cyclical vomiting syndrome unrelated to migraine Status: Acute Assessment and Plan: See #3 (5) Cannabis use disorder: Code(s): F12.90 - Cannabis use, unspecified, uncomplicated Status: Acute Assessment and Plan: See #3 (6) Emphysema lung: Code(s): J43.9 - Emphysema, unspecified Status: Acute Assessment and Plan: See #2 Subjective Date/time seen: 11/30/22 06:48 Interval history: This is a 56-year-old male patient who presented to the emergency department today with severe lower abdominal pain cramping stabbing in nature rated 8/10 with associated nausea and vomiting.? Patient has a history ureteral bowel disease, cyclic vomiting chronic marijuana use and prior diverticulitis.? He also notes that he does not take any home medications except he has a rescue inhaler for history of COPD.? Patient reports that he still smokes cigarettes and marijuana daily.? Patient received 2 doses of Zofran, 2 doses of fentanyl and 1 dose of IV Zosyn in the emergency department before admission. Interval History: 11/30- overnight patient had acute desaturation with Spo2 in the 70's. He was placed on 3 L NC and sats increased to the low 80's. After placing on venturi mask at 8 L 40% fio2 he was able to maintain his saturations in the low 90's. This morning he went down for CTA of the chest which was negative for acute process. Even after the road trip he maintain his saturations now 96%. He appears comfortable in bed but has a strong nonproductive cough. He does say that he had recent contact with his grandson who he believes is sick. He tolerated clear liquid diet this morning and says that his abdominal pain is no better or worse. Will advance diet for lunch to full liquid and he tolerates that can advance to low-fiber at dinner. Review of Systems Review of Systems: All systems reviewed & are unremarkable except as noted in HPI and below Exam Narrative: General: well-nourished, well-appearing 56-year-old male, sitting up in bed, comfortable, NARD Neuro: awake, alert and oriented x4, speech clear, no focal neuro deficits noted HEENMT: normocephalic, atraumatic, EOMI, sclerae anicteric, moist oral mucosa Respiratory: Diminished throughout with expiratory wheeze, nonlabored breathing at rest, on 3
[2022-11-30] MEDS: HYDROcodone/acetaminophen (*CRX) 5-325 MG TABLET 1 TAB PO ×2 (07:32→20:12)
[2022-11-30] MEDS: AZITHROMYCIN 250 MG TABLET PO (08:11)
[2022-11-30] MEDS: ENOXAPARIN 40 MG/0.4 ML SYRINGE SUB-Q (08:11)
--- NOTE | 2022-11-30 08:35 | PC.NURSE ---
Onboarding Specialist noticed while checking on patient that patient has an intermittent non productive cough.
--- NOTE | 2022-11-30 09:04 | PC.NURSE ---
Patient changed over from venturi mask with 8L at 40% to 3L via n/c. May titrate to keep SPO2 above 88. Patient tolerating well at this time.
[2022-11-30] MEDS: methylPREDNISolone SOD SUCC 40 MG VIAL IV PUSH ×3 (09:52→20:16)
[2022-11-30] MEDS: PIPERACILLN/TAZ 3.375GM/NS50ML 3.375 GM/50 ML BAG IVPB ×3 (09:53→20:16)
[2022-11-30] MEDS: LACTATED RINGERS 1,000 ML 75 ML IV CONT (09:54)
--- NOTE | 2022-11-30 10:22 | PC.NURSE ---
Patient changed to inpatient status from observation status.
[2022-11-30 10:32] LABS: Influenza A QL RT-PCR Negative (Negative); Influenza B QL RT-PCR Negative (Negative); RSV RNA, RT-PCR Negative (Negative); SARS-CoV-2 RNA PCR Negative (Negative)
--- NOTE | 2022-11-30 14:12 | PM.IMPN ---
Progress Note: A&P Assessment and Plan (1) Acute diverticulitis: Code(s): K57.92 - Diverticulitis of intestine, part unspecified, without perforation or abscess without bleeding Status: Acute Assessment and Plan: 11/28:? Inflammatory stranding adjacent to a diverticulum of the proximal descending colon.? No mention abscess or perforation.? Prior history in 2019 without surgical intervention.? White blood cell count 16,000.? Patient started on Zosyn in the emergency department. -IV antibiotics with Zosyn -Slow hydration with LR -BP was low on am check. Will give small bolus. -PRN pain medications and anti-emetics -Clear liquid diet, advance to full liquids at lunch, and then low fiber for dinner. (2) Community acquired pneumonia: Code(s): J18.9 - Pneumonia, unspecified organism Status: Acute Assessment and Plan: 11/28:? Minimal airspace opacities consistent with atelectasis versus pneumonia. -Marajuana smoker -Required venturi mask overnight. Now satting 96% on 8L, 40% FiO2. On 3 L NC, titrate to keep sats >88%-Azithromycin -Steroids IV Q 6 hours -Breathing treatments scheduled -CTA chest was negative for PE. Shows moderate emphysema. (3) Nausea vomiting and diarrhea: Code(s): R11.2 - Nausea with vomiting, unspecified; R19.7 - Diarrhea, unspecified Status: Acute Assessment and Plan: 11/28:? History of irritable bowel disease and cyclic vomiting/cannabis use disorder; diverticulitis seen on abdominal CT. -PRN zofran and morphine -IVF -clear liquids and advanced as tolerated (4) Cyclical vomiting: Code(s): R11.15 - Cyclical vomiting syndrome unrelated to migraine Status: Acute Assessment and Plan: see above (5) Cannabis use disorder: Code(s): F12.90 - Cannabis use, unspecified, uncomplicated Status: Acute Assessment and Plan: see above (6) Emphysema lung: Code(s): J43.9 - Emphysema, unspecified Status: Acute Assessment and Plan: see above Subjective Date/time seen: 11/30/22 14:12 Interval history: This is a 56-year-old male patient who presented to the emergency department today with severe lower abdominal pain cramping stabbing in nature rated 8/10 with associated nausea and vomiting.? Patient has a history ureteral bowel disease, cyclic vomiting chronic marijuana use and prior diverticulitis.? He also notes that he does not take any home medications except he has a rescue inhaler for history of COPD.? Patient reports that he still smokes cigarettes and marijuana daily.? Patient received 2 doses of Zofran, 2 doses of fentanyl and 1 dose of IV Zosyn in the emergency department before admission. Interval History: 11/30-? overnight patient had acute desaturation with Spo2 in the 70's. He was placed on 3 L NC and sats increased to the low 80's. After placing on venturi mask at 8 L 40% fio2 he was able to maintain his saturations in the low 90's. This morning he went down for CTA of the chest which was negative for acute process. Even after the road trip he maintain his saturations now 96%.? He appears comfortable in bed but has a strong nonproductive cough.? He does say that he had recent contact with his grandson who he believes is sick.? He tolerated clear liquid diet this morning and says that his abdominal pain is no better or worse.? Will advance diet for lunch to full liquid and he tolerates that can advance to low-fiber at dinner. Review of Systems Review of Systems: All systems reviewed & are unremarkable except as noted in HPI and below Exam Narrative: General:? well-nourished, well-appearing 56-year-old male,? sitting up in bed, comfortable, NARD Neuro: awake, alert and oriented x4, speech clear, no focal neuro deficits noted HEENMT:? normocephalic, atraumatic, EOMI, sclerae anicteric, moist oral mucosa Respiratory: Diminished throughout with expiratory wheeze, nonlabored breathing at rest, on 3 L NC.
[2022-11-30] MEDS: LACTATED RINGERS 1,000 ML 999 ML IV CONT (17:09)
--- NOTE | 2022-11-30 17:37 | PC.NURSE ---
STEEP TENDER ordered a Bolus of LR due to patient's BP being low. Bolus running at this time.
--- NOTE | 2022-11-30 17:37 | PC.NURSE ---
Patient ate low fiber diet for dinner and c/o 10/10 stomach pain. PRN morphine administered.
[2022-11-30] MEDS: LACTATED RINGERS 1,000 ML 100 ML IV CONT (18:21)
[2022-12-01] VITALS (13 sets, daily range): BP systolic 95–121; BP diastolic 50–55; PULSE 58–90; RESP 16–20; TEMP 36.5–36.9; O2SAT 90–96
[2022-12-01] MEDS: methylPREDNISolone SOD SUCC 40 MG VIAL IV PUSH ×3 (03:04→20:30)
[2022-12-01] MEDS: PIPERACILLN/TAZ 3.375GM/NS50ML 3.375 GM/50 ML BAG IVPB ×4 (03:05→20:35)
[2022-12-01] MEDS: MORPHINE SULFATE (*CRX) 2 MG/ML INJ IV PUSH (04:20)
[2022-12-01] MEDS: IPRATROPIUM 0.5 MG/ALBUTEROL SULFATE 2.5 MG AMPUL.NEB 3 ML INHALATION ×4 (04:59→22:53)
[2022-12-01 05:14] LABS: Basophils Absolute Auto 0.01 K/mm3 (0.00-0.10); Basophils Percent Auto 0.1 % (0.0-1.0); Hematocrit 38.2 % (40.0-54.0); Hemoglobin 12.8 g/dL (14.0-18.0); Immature Granulocyte Absolute 0.13 K/mm3 (0.00-0.00); Immature Granulocyte Percent A 0.8 % (0.0-0.0); Lymphocytes Absolute Auto 1.02 K/mm3 (1.10-4.50); Mean Corpuscular HGB Conc 33.5 g/dL (32.0-36.0); Mean Corpuscular Hemoglobin 31.8 pg (27.0-31.0); Mean Corpuscular Volume 94.8 fL (78.0-102.0); Mean Platelet Volume 10.2 fl (8.7-11.0); Monocytes Absolute Auto 0.38 K/mm3 (0.10-0.90); Monocytes Percent Auto 2.2 % (2.0-11.0); Neutrophils Absolute Auto 15.6 K/mm3 (1.7-7.2); Neutrophils Percent Auto 90.9 % (50.0-70.0); Platelet Count Result 252 K/mm3 (150-420); Red Blood Count 4.03 M/mm3 (4.70-6.10); Red Cell Distribution Width 13.5 % (11.6-14.4); White Blood Count 17.1 K/mm3 (4.8-10.8)
[2022-12-01 05:26] LABS: Anion Gap 7 mmol/L (8-16); Blood Urea Nitrogen 11 mg/dL (7-18); Calcium 8.6 mg/dL (8.5-10.1); Carbon Dioxide 29 mmol/L (21-32); Chloride 105 mmol/L (98-108); Estimated CRCL calculation 72 ml/min; Estimated Glomerular Filt Rate > 60; Glucose 162 mg/dL (70-99); Osmolality Calculated 295 mOsm/kg (285-295); Sodium 141 mmol/L (136-145)
[2022-12-01] MEDS: LACTATED RINGERS 1,000 ML 100 ML IV CONT (08:20)
[2022-12-01] MEDS: ENOXAPARIN 40 MG/0.4 ML SYRINGE SUB-Q (08:21)
[2022-12-01] MEDS: HYDROcodone/acetaminophen (*CRX) 5-325 MG TABLET 1 TAB PO ×3 (08:27→20:33)
[2022-12-01] MEDS: AZITHROMYCIN 250 MG TABLET PO (08:28)
--- NOTE | 2022-12-01 09:37 | PM.IMPN ---
Progress Note: A&P Assessment and Plan (1) Acute diverticulitis: Code(s): K57.92 - Diverticulitis of intestine, part unspecified, without perforation or abscess without bleeding Status: Acute Assessment and Plan: 11/28: Inflammatory stranding adjacent to a diverticulum of the proximal descending colon. No mention abscess or perforation. Prior history in 2019 without surgical intervention. White blood cell count 16,000. Patient started on Zosyn in the emergency department which will be continued. 12/01 Patient still has IV fluids flowing WBC 17l Steroids started last night (2) Community acquired pneumonia: Code(s): J18.9 - Pneumonia, unspecified organism Status: Acute Assessment and Plan: 11/28: Minimal airspace opacities consistent with atelectasis versus pneumonia. Patient with white count [id number]. He is on Zosyn for diverticulitis. Will make breathing treatments available as needed. History of COPD with CXR findings of severe emphysematous lungs. Will add azithromycin oral as well. 12/01 Patient started on Diet yesterday no bleeding or diarrhea noted. Breathing treatment ordered q6h not prn as he needs more. incentive spirometry ordered patient needs to be up to a chair oxygen at 3 L (3) Nausea vomiting and diarrhea: Code(s): R11.2 - Nausea with vomiting, unspecified; R19.7 - Diarrhea, unspecified Status: Acute Assessment and Plan: 11/28: History of irritable bowel disease and cyclic vomiting/cannabis use disorder. Patient received 2 doses IV Zofran in the emergency department. Will have additional antiemetics available as needed. Start clear liquid diet and advance as tolerated to regular diet. 12/01 denies nausea zofran ordered for nausea and vomiting (4) Cyclical vomiting: Code(s): R11.15 - Cyclical vomiting syndrome unrelated to migraine Status: Acute Assessment and Plan: See #3 (5) Cannabis use disorder: Code(s): F12.90 - Cannabis use, unspecified, uncomplicated Status: Acute Assessment and Plan: See #3 (6) Emphysema lung: Code(s): J43.9 - Emphysema, unspecified Status: Acute Assessment and Plan: See #2 Subjective Date/time seen: 12/01/22 09:37 Interval history: Patient continues to have shortness of breath and is requiring oxygen he is eating and drinking without any difficulty and has remained afebrile we currently have patient on 3 L nasal cannula he has been started on some Solu-Medrol white blood count has been been elevated possibly due to start of steroids today. Patient was given incentive spirometer and taught how to use he has been having IV fluids following he is eating and drinking and denied any pain at this time we will have patient up in a recliner today we will continue to monitor no diarrhea noted at this time no blood noted at this time all other labs are stable we will continue to monitor Exam Narrative: GENERAL: Ill appearing, alert and oriented, in Periodic pain distress. He is pleasant and conversant in full sentences. shortness of breath noted with conversation HEENT: Pupils are equally round and briskly reactive to light. Extraocular muscles are intact. Oral mucous membranes are moist without lesions. CHEST/LUNGS: Lungs with occasional expiratory wheeze no rhonchi no rales. diminished in lower lobes with accessory muscle use noted. HEART: The patient has a regular rate and rhythm. Distal pulses are 2+. No carotid bruits appreciated. ABDOMEN: The patient's abdomen tender to the left lower quadrant and mild tenderness to the right lower quadrant without rebound with mild guarding in anticipation of pain. Bowel sounds are positive. EXTREMITIES: The patient has no peripheral edema. There is no focal long bone tenderness or deformity. SKIN: The patient's skin is warm and dry, without rashes or lesions. PSYCHIATRIC: The patient has normal mental status and has an appropriate affect
[2022-12-01] MEDS: KETOROLAC 30 MG/ML VIAL (*BKC) IV PUSH (10:42)
--- NOTE | 2022-12-01 18:01 | PC.NURSE ---
Patient removed O2 so that he could eat better. After dinner SPO2 was 91% on room air. Fitness Trainer left O2 off of patient and will monitor SPO2 saturation closely for the next hour.
--- NOTE | 2022-12-01 18:53 | PC.NURSE ---
Patient's SPO2 is maintaining between 88 and 90 percent on room air using patient's R hand. Using patient's L hand SPO2 dropped below 87 for a brief time. Patient denies shortness of breath and is advised to tell the nurse if he feels short of breath at any time.
[2022-12-02] VITALS (13 sets, daily range): BP systolic 106–114; BP diastolic 55–74; PULSE 54–90; RESP 16–20; TEMP 36.1–36.6; O2SAT 82–96
[2022-12-02] MEDS: PIPERACILLN/TAZ 3.375GM/NS50ML 3.375 GM/50 ML BAG IVPB ×4 (03:48→20:39)
--- NOTE | 2022-12-02 04:35 | PC.NURSE ---
On 12/02/22, the BOOKKEEPER, [Levi ], provided care and completed [facility] documentation on this patient. I have reviewed the BOOKKEEPER's documentation and agree with the findings.
[2022-12-02] MEDS: IPRATROPIUM 0.5 MG/ALBUTEROL SULFATE 2.5 MG AMPUL.NEB 3 ML INHALATION ×4 (05:03→23:06)
[2022-12-02 06:39] LABS: Basophils Absolute Auto 0.02 K/mm3 (0.00-0.10); Basophils Percent Auto 0.1 % (0.0-1.0); Eosinophils Absolute Auto 0.01 K/mm3 (0.02-0.50); Eosinophils Percent Auto 0.1 % (1.0-6.0); Hematocrit 41.3 % (40.0-54.0); Hemoglobin 13.8 g/dL (14.0-18.0); Immature Granulocyte Absolute 0.11 K/mm3 (0.00-0.00); Immature Granulocyte Percent A 0.6 % (0.0-0.0); Lymphocytes Absolute Auto 1.15 K/mm3 (1.10-4.50); Lymphocytes Percent Auto 6.1 % (18.0-42.0); Mean Corpuscular HGB Conc 33.4 g/dL (32.0-36.0); Mean Corpuscular Hemoglobin 31.6 pg (27.0-31.0); Mean Corpuscular Volume 94.5 fL (78.0-102.0); Mean Platelet Volume 10.4 fl (8.7-11.0); Monocytes Absolute Auto 0.84 K/mm3 (0.10-0.90); Monocytes Percent Auto 4.5 % (2.0-11.0); Neutrophils Absolute Auto 16.7 K/mm3 (1.7-7.2); Neutrophils Percent Auto 88.6 % (50.0-70.0); Platelet Count Result 263 K/mm3 (150-420); Red Blood Count 4.37 M/mm3 (4.70-6.10); Red Cell Distribution Width 13.8 % (11.6-14.4); White Blood Count 18.8 K/mm3 (4.8-10.8)
[2022-12-02 06:47] LABS: Anion Gap 6 mmol/L (8-16); Blood Urea Nitrogen 15 mg/dL (7-18); Calcium 8.6 mg/dL (8.5-10.1); Carbon Dioxide 31 mmol/L (21-32); Chloride 107 mmol/L (98-108); Estimated CRCL calculation 59 ml/min; Estimated Glomerular Filt Rate > 60; Glucose 149 mg/dL (70-99); Osmolality Calculated 301 mOsm/kg (285-295); Potassium 4.1 mmol/L (3.5-5.1); Sodium 144 mmol/L (136-145)
[2022-12-02] MEDS: AZITHROMYCIN 250 MG TABLET PO (09:08)
[2022-12-02] MEDS: methylPREDNISolone SOD SUCC 40 MG VIAL IV PUSH ×2 (09:08→20:39)
[2022-12-02] MEDS: guaiFENesin 12 HR 600 MG TABCR 1200 MG PO ×2 (10:13→20:39)
--- NOTE | 2022-12-02 11:05 | HOMEO2EVAL ---
Evaluation was performed at [facility] [place] Home Oxygen Evaluation RC: Home Oxygen (O2) Evaluation Start: 12/02/22 09:34 Freq: ONCE Status: Active Protocol: RPE Activity Type Activity Date Activity User E-sign Co-sign Detail Recorded Client Recorded Date Recorded By Document 12/02/22 10:00 [email or web address] 12/02/22 11:05 SJB Document 12/02/22 10:07 SJB [email or web address] 12/02/22 11:05 SJB 12/02/22 12/02/22 10:00 10:07 Home O2 Evaluation [Oxygen] -Test Phase Resting Exercise -Oxygen Delivery Room Air Room Air [Pulse Oximetry] -Pulse Oximetry (90-100 %) 94 92 [Pulse Rate] -Pulse Rate (60-100 beats/min) 60 78 [Evaluation] -Activity Tolerance Excellent -Rating of Perceived Dyspnea (PD) +1 Mild, Noticeable to the Participant but Not to an Observer -Rate of Perceived Exertion (PE) 11 Fairly light Query Text:Click the Protocol Button to View the RPE Scale [Exercise] -Ambulation Distance (feet) 500 -Ambulation Distance (meters) 152.39 [Comments] -Home Oxygen Evaluation Comments Will begin walk Pt walked a now on room total of approx air. . 500 ft on room air. Sp02 stayed at 91% and above. HR up to 78. Pt was the benefits of PLB . Tolerated very well. Encouraged patient to sit up more. [Charges] -Treatment Charges O2 Evaluation - Inpatient
--- NOTE | 2022-12-02 11:25 | PM.IMPN ---
Progress Note: A&P Assessment and Plan (1) Acute diverticulitis: Code(s): K57.92 - Diverticulitis of intestine, part unspecified, without perforation or abscess without bleeding Status: Acute Assessment and Plan: 11/28: Inflammatory stranding adjacent to a diverticulum of the proximal descending colon. No mention abscess or perforation. Prior history in 2019 without surgical intervention. White blood cell count 16,000. Patient started on Zosyn in the emergency department which will be continued. 12/01 Patient still has IV fluids flowing WBC 17l Steroids started last night 12/02 WBC18.8 afebrile chest xray today and walk study pain is 3/10 (2) Community acquired pneumonia: Code(s): J18.9 - Pneumonia, unspecified organism Status: Acute Assessment and Plan: 11/28: Minimal airspace opacities consistent with atelectasis versus pneumonia. Patient with white count 69312. He is on Zosyn for diverticulitis. Will make breathing treatments available as needed. History of COPD with CXR findings of severe emphysematous lungs. Will add azithromycin oral as well. 12/01 Patient started on Diet yesterday no bleeding or diarrhea noted. Breathing treatment ordered q6h not prn as he needs more. incentive spirometry ordered patient needs to be up to a chair oxygen at 3 L 12/02 WBC is 18.8 remains on steroids, and on oxygen couging started on Mucinex and walk study to be completed CXR pending (3) Nausea vomiting and diarrhea: Code(s): R11.2 - Nausea with vomiting, unspecified; R19.7 - Diarrhea, unspecified Status: Acute Assessment and Plan: 11/28: History of irritable bowel disease and cyclic vomiting/cannabis use disorder. Patient received 2 doses IV Zofran in the emergency department. Will have additional antiemetics available as needed. Start clear liquid diet and advance as tolerated to regular diet. 12/01 denies nausea zofran ordered for nausea and vomiting (4) Cyclical vomiting: Code(s): R11.15 - Cyclical vomiting syndrome unrelated to migraine Status: Acute Assessment and Plan: See #3 (5) Cannabis use disorder: Code(s): F12.90 - Cannabis use, unspecified, uncomplicated Status: Acute Assessment and Plan: See #3 (6) Emphysema lung: Code(s): J43.9 - Emphysema, unspecified Status: Acute Assessment and Plan: See #2 Subjective Date/time seen: 12/02/22 11:25 Interval history: Patient is on oxygen and continues to cough with desaturation noted throughout the night. Patient WBC is 18.8 he has remained afebrile. Patient will have a chest xray and a walk study today . Patient states he has intermittent abdominal pain.Patient continue to need breathing treatment and is on the IV Steroids. 12/01: Patient continues to have shortness of breath and is requiring oxygen he is eating and drinking without any difficulty and has remained afebrile we currently have patient on 3 L nasal cannula he has been started on some Solu-Medrol white blood count has been been elevated possibly due to start of steroids today. Patient was given incentive spirometer and taught how to use he has been having IV fluids following he is eating and drinking and denied any pain at this time we will have patient up in a recliner today we will continue to monitor no diarrhea noted at this time no blood noted at this time all other labs are stable we will continue to monitor Exam Narrative: GENERAL: Ill appearing, alert and oriented, in Periodic pain distress. He is pleasant and conversant in full sentences. shortness of breath noted with conversation HEENT: Pupils are equally round and briskly reactive to light. Extraocular muscles are intact. Oral mucous membranes are moist without lesions. CHEST/LUNGS: Lungs with occasional expiratory wheeze no rhonchi no rales. diminished in lower lobes with accessory muscle use noted. HEART: The patient has a regular ra
[2022-12-03] VITALS: BP 105/62; PULSE 7; RESP 18; TEMP 36.1; O2SAT 90
--- NOTE | 2022-12-03 02:26 | PC.NURSE ---
On 12/03/22, the WINCH RUNNER, [ Varun], provided care and completed [facility] documentation on this patient. I have reviewed the WINCH RUNNER's documentation and agree with the findings.
[2022-12-03] MEDS: PIPERACILLN/TAZ 3.375GM/NS50ML 3.375 GM/50 ML BAG IVPB ×2 (02:45→09:07)
[2022-12-03] MEDS: IPRATROPIUM 0.5 MG/ALBUTEROL SULFATE 2.5 MG AMPUL.NEB 3 ML INHALATION (04:58)
[2022-12-03 04:59] VITALS: PULSE 62; RESP 16; O2SAT 89
[2022-12-03 05:06] VITALS: PULSE 61; RESP 20
[2022-12-03 05:14] LABS: Basophils Absolute Auto 0.01 K/mm3 (0.00-0.10); Basophils Percent Auto 0.1 % (0.0-1.0); Hematocrit 38.1 % (40.0-54.0); Hemoglobin 12.7 g/dL (14.0-18.0); Immature Granulocyte Absolute 0.08 K/mm3 (0.00-0.00); Immature Granulocyte Percent A 0.6 % (0.0-0.0); Lymphocytes Absolute Auto 1.23 K/mm3 (1.10-4.50); Lymphocytes Percent Auto 9.8 % (18.0-42.0); Mean Corpuscular HGB Conc 33.3 g/dL (32.0-36.0); Mean Corpuscular Hemoglobin 31.8 pg (27.0-31.0); Mean Corpuscular Volume 95.5 fL (78.0-102.0); Monocytes Absolute Auto 0.57 K/mm3 (0.10-0.90); Monocytes Percent Auto 4.5 % (2.0-11.0); Neutrophils Absolute Auto 10.7 K/mm3 (1.7-7.2); Platelet Count Result 248 K/mm3 (150-420); Red Blood Count 3.99 M/mm3 (4.70-6.10); White Blood Count 12.6 K/mm3 (4.8-10.8)
[2022-12-03 05:23] LABS: Anion Gap 6 mmol/L (8-16); Blood Urea Nitrogen 19 mg/dL (7-18); Carbon Dioxide 29 mmol/L (21-32); Chloride 106 mmol/L (98-108); Estimated CRCL calculation 63 ml/min; Estimated Glomerular Filt Rate > 60; Glucose 142 mg/dL (70-99); Osmolality Calculated 296 mOsm/kg (285-295); Potassium 4.4 mmol/L (3.5-5.1); Sodium 141 mmol/L (136-145)
[2022-12-03 08:00] VITALS: BP 120/59; PULSE 66; RESP 20; TEMP 36.6; O2SAT 95
[2022-12-03] MEDS: AZITHROMYCIN 250 MG TABLET PO (09:07)
[2022-12-03] MEDS: guaiFENesin 12 HR 600 MG TABCR 1200 MG PO (09:07)
[2022-12-03] MEDS: methylPREDNISolone SOD SUCC 40 MG VIAL IV PUSH (09:07)
--- NOTE | 2022-12-03 09:38 | PM.DS ---
DS: Admitting Diagnosis Discharge Date 12/03/2022 Admitting Diagnosis Diverticulitis, Pneumonia, Dehydration, Acute kidney injury DS: Discharge Diagnosis Discharge Diagnosis (1) Community acquired pneumonia: Code(s): J18.9 - Pneumonia, unspecified organism Status: Acute Assessment and Plan: IV antibiotic Oral antibiotic sent home with (2) Acute diverticulitis: Code(s): K57.92 - Diverticulitis of intestine, part unspecified, without perforation or abscess without bleeding Status: Acute (3) Nausea vomiting and diarrhea: Code(s): R11.2 - Nausea with vomiting, unspecified; R19.7 - Diarrhea, unspecified Status: Acute Assessment and Plan: Zofran IV (4) Irritable bowel disease: Code(s): K58.9 - Irritable bowel syndrome without diarrhea Status: Acute DS: Summary Hospital Course Reason for hospitalization: Diverticulitis,Pneumonia Hospital Course: Mr. Ojeda is a 57 year old male admitted to the hospital with Diverticulitis w small perforation noted. Patient has been treated with IV antibiotics of Zosyn and received breathing treatment and Steroids for his COPD and hypoxia as well. Mr. Ojeda has progressed well and currently has minimal amount of abdominal pain. He is able to eat and drink without difficulties and he has not had any diarrhea and or blood in stool. Patient is a chronic marijuana smoker and has not smoked in the last 5 days as he has remained in the hospital he was eventually weaned off the oxygen but has been educated that he may eventually need oxygen at home espcially if he continues to smoke. I have sent patient home on oral antibiotic and oral steroids. Inhaler for shortness of breath and a nicotine patch with a antidepressant as well to possibly assist with him not smoking and he informed me he felt depressed without SI/HI. Mr. Ojeda will dishcarge home today with close follow up by his PCP and he would benefit from seeing a Dock Pumper who he will talk to his PCP about according to patient. Time Spent with Patient Time attestation: Total time spent providing and/or coordinating discharge services: Exam Narrative: GENERAL: well appearing, alert and oriented, in Periodic pain distress. ? He is pleasant and conversant in full sentences.? HEENT: Pupils are equally round and briskly reactive to light. Extraocular muscles are intact. Oral mucous membranes are moist without lesions. CHEST/LUNGS:?Lungs with occasional expiratory wheeze no rhonchi no rales.? diminished in lower lobes with accessory muscle use noted.? HEART: The patient has a regular rate and rhythm.? Distal pulses are 2+. No carotid bruits appreciated. ABDOMEN: The patient's abdomen tender to the left lower quadrant and mild tenderness to the right lower quadrant without rebound with mild guarding in anticipation of pain. Bowel sounds are positive. EXTREMITIES: The patient has no peripheral edema. There is no focal long bone tenderness or deformity. SKIN: The patient's skin is warm and dry, without rashes or lesions. PSYCHIATRIC: The patient has normal mental status and has an appropriate affect. NEUROLOGIC:? There are no gross deficits to the cranial nerves.? Patient ambulates with steady gait. DS: Data Data Completed and Pending Labs on day of discharge: Labs from last 24 hours 12/03/22 05:11 WBC 12.6 H RBC 3.99 L Hgb 12.7 L Hct 38.1 L MCV 95.5 MCH 31.8 H MCHC 33.3 RDW 14.0 Plt Count 248 MPV 10.0 Immature Gran % (Auto) 0.6 H Neut % (Auto) 85.0 H Lymph % (Auto) 9.8 L Mcintosh % (Auto) 4.5 Eos % (Auto) 0.0 L Baso % (Auto) 0.1 Lymph # (Auto) 1.23 Mcintosh # (Auto) 0.57 Eos # (Auto) 0.00 L Baso # (Auto) 0.01 Abs Immat Gran (auto) 0.08 H Absolute Neuts (auto) 10.7 H Absolute Nucleated RBC 0.00 Nucleated RBC % 0.0 Sodium 141 Potassium 4.4 Chloride 106 Carbon Dioxide 29 Anion Gap 6 L BUN 19 H Creatinine 1.02 Estim Creat Clear Calc 63 Diane
--- NOTE | 2022-12-03 11:46 | PC.NURSE ---
Pt discharged to home with family care. RN instructed pt regarding new medications: doseages, times, purpose and SE. Pt instructed to call PCP for follow up appointment.
== END 2022-12-03 11:35 | disposition home or self-care (01) | DRG 391 ==
LOC: CHSED 10:59 → CHS2ND 15:02
PROVIDERS: Nurse Practitioner; Admitting Provider Internal Medicine; Emergency Provider Emergency Medicine; PCP Family Medicine; Visit Provider Internal Medicine
DX: K57.32 Diverticulitis of large intestine without perforation or abscess without bleeding (principal); J18.9 Pneumonia, unspecified organism; J44.0 Chronic obstructive pulmonary disease with (acute) lower respiratory infection; K21.9 Gastro-esophageal reflux disease without esophagitis; K58.0 Irritable bowel syndrome with diarrhea; M54.9 Dorsalgia, unspecified; R11.15 Cyclical vomiting syndrome unrelated to migraine; G89.29 Other chronic pain; G51.0 Bell's palsy; H35.30 Unspecified macular degeneration; H54.8 Legal blindness, as defined in USA; F32.A Depression, unspecified; F41.9 Anxiety disorder, unspecified; F17.210 Nicotine dependence, cigarettes, uncomplicated; F12.90 Cannabis use, unspecified, uncomplicated; Z87.442 Personal history of urinary calculi
CPT/HCPCS: 36415; 71045; 71046; 71275; 74177; 80048; 80053; 81001; 83605; 83690; 83735; 84484; 85025; 85027; 85610; 85730; 87040; 87086; 87088; 87637; 93005; 94618; 94640; 96361; 96365; 96368; 96375; 96376; 99285; A9270; G0378; J1650; J1885; J2270; J2405; J2543; J2920; J3010; J3475; J7030; J7120; Q9967

== ENCOUNTER 2023-08-12 08:34 | Emergency (ER) | payer MEDICARE, MEDICAID, SELFPAY ==
[2023-08-12] VITALS (16 sets, daily range): BP systolic 104–128; BP diastolic 73–94; PULSE 60–76; RESP 12–20; TEMP 37.1; O2SAT 90–96
--- NOTE | ~2023-08-12 | CT_ITS ---
EXAMINATION: CT brain wo con DATE: 08/12/2023 09:57 INDICATION: Dizziness post fall with head injury and nausea and vomiting TECHNIQUE: Computed tomography (CT) of the head was performed without intravenous contrast. Sagittal and coronal reconstructions were performed. The mA was adjusted according to patient size. Iterative reconstruction technique was employed. The dose-length product was 605.33 mGy-cm. COMPARISON: head CT dated 06/17/2022 FINDINGS: No fracture. No acute intracranial hemorrhage, acute infarction or abnormal extra axial fluid collect ion. Ventricles are normal and symmetric. No mass/mass effect. The orbits and mastoid air cells are n ormal. Mild mucosal thickening right maxillary sinus and opacification of the posterior most left eth moid sinus. IMPRESSION: 1. No fracture or acute intracranial process. Reviewed, dictated and finalized at location A.
--- NOTE | ~2023-08-12 | CT_ITS ---
EXAMINATION: CT chest abdomen pelvis w con DATE: 08/12/2023 09:58 INDICATION: Shortness of breath, nausea, vomiting and left lower quadrant abdominal pain. TECHNIQUE: Computed tomography (CT) of the chest, abdomen, and pelvis was performed with 100 mL Omnip aque-350 intravenous contrast. Automated exposure control and iterative reconstruction technique were employed. The dose-length product was 544.09 mGy-cm. COMPARISON: Chest CT dated 11/30/[address] abdomen and pelvis dated 11/29/2022 FINDINGS: CHEST CT: Moderate to severe upper lung predominant emphysema. Mild linear discoid atelectasis in the right mid dle and lower lobes. Additional mild dependent atelectasis in bilateral lower lobes. No pneumonia, pu lmonary edema, pleural effusion or pneumothorax. Heart size is normal. No pericardial effusion. Thora cic aorta is normal in caliber with no dissection. Small sliding-type hiatal hernia. No pathologicall y enlarged thoracic lymphadenopathy. Mild thoracic spondylosis. ABDOMEN/PELVIS CT: Liver, gallbladder, spleen, pancreas, bilateral adrenal glands and kidneys are normal. Multiple surgi gurwinder clips near the tip the cecum likely related to prior appendectomy. There are few diverticula usama g the descending colon without adjacent from trace stranding to suggest diverticulitis. No bowel obst ruction. Bladder is normal. No free intraperitoneal gas or fluid. No pathologically enlarged abdomina l or pelvic lymphadenopathy. Mild lumbar spondylosis. IMPRESSION: 1. Moderate to severe emphysema with mild bibasilar atelectasis. No other acute cardiopulmonary disea se. 2. No acute intra-abdominal/pelvic process. 3. Small sliding-type hiatal hernia. 4. Mild diverticulosis along the descending colon. Reviewed, dictated and finalized at location A. IMPRESSION: 1. Moderate to severe emphysema with mild bibasilar atelectasis. No other acute cardiopulmonary disease. 2. No acute intra-abdominal/pelvic process. 3. Small sliding-type hiatal hernia. 4. Mild diverticulosis along the descending colon.
--- NOTE | ~2023-08-12 | CT_ITS ---
EXAMINATION: CT cervical spine wo con DATE: 08/12/2023 09:58 INDICATION: Neck pain after fall TECHNIQUE: Computed tomography (CT) of the cervical spine was performed without intravenous contrast. The dose-length product was 343 mGy-cm. Automated exposure control and iterative reconstruction tech [employer] were employed. COMPARISON: CT dated 09/10/2019 FINDINGS: Reversal of cervical lordosis. There is disc narrowing at C3-4 through C6-7. Craniovertebra l junction is normal. Odontoid process within normal limits. No evidence for perched facet. Lateral m asses normally aligned. Moderate uncinate hypertrophy at C3-4 through C5-6. No paraspinal soft tissue abnormalities. There is emphysema. IMPRESSION: 1. No acute abnormality of the cervical spine. Reviewed, dictated and finalized at location B.
--- NOTE | 2023-08-12 08:42 | ECG_ITS ---
SEE SCANNED COPY FOR CONFIRMED REPORT MTDD
--- NOTE | 2023-08-12 08:49 | ED.ABDPAIN ---
HPI - Abdominal Pain General Chief Complaint: Abdominal Pain Stated Complaint: abdominal pain and vomiting; fall Time Seen by Provider: 08/12/23 08:41 Source: patient and EMS Mode of arrival: EMS Limitations: no limitations History of Present Illness HPI narrative: this is a 57-year-old male with past medical history of diverticulitis presents via EMS with abdominal pain diffuse localizing to the left lower quadrant started yesterday but intensified over the this morning, has been having nausea with episodes of vomiting diarrhea no antibiotic use over the past 2 months. Has a smoking history and states that he has some dyspnea no cough or congestion pain level currently 3/10 with no dysuria no flank pain no hematuria no fever chills. MD elicited complaint: abdominal pain Pertinent past history: diverticulitis Onset (ago): day(s) Pain Consistency: constant Location: diffuse Severity: mild Pain scale (0-10): 3 Quality: aching Radiation: none Migration to: no migration Relieving factors: nothing Associated symptoms: nausea, vomiting and diarrhea Related Data Allergies Allergy/AdvReac Type Severity Reaction Status Date / Time No Known Allergies Allergy Verified 10/01/22 18:56 Review of Systems Review of Systems: All systems reviewed & are unremarkable except as noted in HPI and below PMFSH Past Medical History Medical History Anxiety 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 Bilateral nephrolithiasis June 22, 2019 CT of abdomen and pelvis with contrast at [facility] [place] [facility]. Biliary sludge C. 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 Marihuana dependence Nausea & vomiting Tobacco dependence Surgical History Surgical History History of appendectomy History of eye surgery As a child. History of inguinal hernia repair (~07/2013) Bilateral. Family History Family History Other Family history not known due to adoption Patient grew up in foster care and does not know his biological family or any medical history regarding such. Social History Social History Social History: The patient lives in [place] with his . They have 4 grown children. 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 He smokes 0.5 packs of cigarettes per day, but at most smoked 1.5 packs of cigarettes per day while he was driving. He uses marijuana socially. He drinks alcohol perhaps 1 time a month, and in moderation. He designates his , Sharon, as his surrogate decision maker and he wishes to be a full code. Smoking packs per day: 0.5 Smoking cigarettes per day: 10.0 Years smoked: 40 Smoking pack-years: 20.00 Smoking status: Current every day smoker Tobacco type: cigarettes Second hand tobacco smoke exposure: Yes Alcohol intake: never Alcohol use details: rarely Substance use: current Substance use type: marijuana Other substance usage details: 3x an week Lack of Transportation: No Lack of Food: Never True Current Housing: I Have Housing Concerned About Future Housing: No Difficulty Paying Gas/Electric Bills: No Difficulty Paying for Meds: No Currently Unemployed: No Education: High School Diploma/GED Difficulty w/ Childcare or Family Care: No Living arrangements: with family Spiritual care concerns: No Exam Const: General: no acute distress Nutriti
[2023-08-12] MEDS: SODIUM CHLORIDE 0.9% IV 1,000 ML 999 ML IV CONT (09:04)
[2023-08-12 09:05] LABS: Basophils Absolute Auto 0.06 K/mm3 (0.00-0.10); Basophils Percent Auto 0.5 % (0.0-1.0); Eosinophils Absolute Auto 0.08 K/mm3 (0.02-0.50); Eosinophils Percent Auto 0.6 % (1.0-6.0); Hematocrit 45.7 % (40.0-54.0); Hemoglobin 14.9 g/dL (14.0-18.0); Immature Granulocyte Absolute 0.07 K/mm3 (0.00-0.00); Immature Granulocyte Percent A 0.6 % (0.0-0.0); Lymphocytes Absolute Auto 1.18 K/mm3 (1.10-4.50); Lymphocytes Percent Auto 9.5 % (18.0-42.0); Mean Corpuscular HGB Conc 32.6 g/dL (32-36); Mean Corpuscular Hemoglobin 30.2 pg (27.0-31.0); Mean Corpuscular Volume 92.7 fL (78.0-102.0); Mean Platelet Volume 9.7 fl (8.7-11.0); Monocytes Absolute Auto 0.52 K/mm3 (0.10-0.90); Monocytes Percent Auto 4.2 % (2.0-11.0); Neutrophils Absolute Auto 10.54 K/mm3 (1.70-7.20); Neutrophils Percent Auto 84.6 % (50.0-70.0); Platelet Count Result 272 K/mm3 (150-420); Red Blood Count 4.93 M/mm3 (4.70-6.10); Red Cell Distribution Width 13.6 % (11.6-14.4); White Blood Count 12.5 K/mm3 (4.8-10.8)
[2023-08-12 09:18] LABS: Partial Thromboplastin Time 26.5 Sec (23.9-30.70); Prothrombin Time 10.7 Seconds (9.50-12.1)
[2023-08-12 09:23] LABS: Alanine Aminotransferase 30 U/L (16-63); Albumin Level 3.1 g/dL (3.4-5.0); Alkaline Phosphatase 58 U/L (46-116); Anion Gap 7 mmol/L (4-12); Aspartate Amino Transferase 16 U/L (15-37); Bilirubin,Total 0.4 mg/dL (0.00-1.00); Blood Urea Nitrogen 15 mg/dL (7-18); Calcium 8.1 mg/dL (8.5-10.1); Carbon Dioxide 28 mmol/L (21-32); Chloride 105 mmol/L (98-108); Estimated CRCL calculation 76 ml/min; Estimated Glomerular Filt Rate > 60; Glucose 129 mg/dL (70-99); Lipase 21 U/L (16-77); Osmolality Calculated 292 mOsm/kg (285-295); Potassium 4.3 mmol/L (3.5-5.1); Sodium 140 mmol/L (136-145); Total Protein 6.6 g/dL (6.4-8.2); Troponin I 55.4 ng/L (0.00-60.4)
[2023-08-12 09:25] LABS: Lactic Acid Reflex 0.6 mmol/L (0.4-2.0)
--- NOTE | 2023-08-12 09:59 | PC.NURSE ---
pt complaint of nausea at this time. medication ordered will be given
[2023-08-12] MEDS: ONDANSETRON INJ 4 MG/2 ML VIAL IV PUSH (10:01)
--- NOTE | 2023-08-12 10:28 | PC.NURSE ---
c-collar off per dr talavera. in with pt , discussing plan of care and discharge.
--- NOTE | 2023-08-18 15:29 | PC.NURSE ---
08/18/23 FINAL BLOOD CULTURE NO GROWTH AFTER 5 DAYS
== END 2023-08-12 10:31 | disposition home or self-care (01) ==
PROVIDERS: Emergency Provider Emergency Medicine; PCP Family Medicine
DX: J43.9 Emphysema, unspecified (principal); R10.9 Unspecified abdominal pain; R11.2 Nausea with vomiting, unspecified; F41.9 Anxiety disorder, unspecified; F32.A Depression, unspecified; K21.9 Gastro-esophageal reflux disease without esophagitis; F17.210 Nicotine dependence, cigarettes, uncomplicated; F12.90 Cannabis use, unspecified, uncomplicated
CPT/HCPCS: 36415; 70450; 71260; 72125; 74177; 80053; 83605; 83690; 84484; 85025; 85610; 85730; 87040; 93005; 96361; 96374; 99284; J2405; J7030; Q9967

== ENCOUNTER 2023-09-03 09:41 | Emergency (ER) | payer MEDICARE, MEDICAID, SELFPAY ==
[2023-09-03] VITALS (12 sets, daily range): BP systolic 92–164; BP diastolic 63–100; PULSE 57–84; RESP 16–20; TEMP 36.1–36.4; O2SAT 85–97
--- NOTE | ~2023-09-03 | XR_ITS ---
Supine and upright views of the abdomen Clinical history: Abdominal pain Findings: Bowel gas pattern is nonspecific. No evidence for obstruction or free air. Right lower quad rant surgical clips noted. No abnormal mass lesion or calcification is seen. Osseous structures are i ntact. Impression: No significant abnormality is seen. Reviewed, dictated and finalized at [facility]. Impression: No significant abnormality is seen.
--- NOTE | 2023-09-03 09:54 | ED.ABDPAIN ---
HPI - Abdominal Pain General Chief Complaint: Abdominal Pain Stated Complaint: abdominal pain, constipation Source: patient Mode of arrival: ambulatory Limitations: no limitations History of Present Illness HPI narrative: 7-year-old male, smoker marijuana anxiety/depression, emphysema, cyclic vomiting syndrome, chronic abdominal pain status post appendectomy, kidney stones, biliary sludge, GERD /hiatal hernia, gastritis, esophagitis presents to the ER 4 hour history of -- diffuse abdominal pain. -- Nausea with 3 episodes of vomiting -- patient complains of loose stools with decreased bowel movement for the past 4 days. -- Complains of diaphoresis and chills. Patient presented to the ED on 08/12/2023 for similar symptoms. The patient had a CT of abdomen and pelvis along with CT head and C-spine which did not show any acute findings. One week ago he was at [facility] in [place] for similar symptoms and received hydrocodone. MD elicited complaint: abdominal pain Pertinent past history: constipation Onset (ago): hour(s) ( 4 hours) Pain Consistency: constant Location: diffuse Severity: severe Pain scale (0-10): 8 Quality: aching Radiation: none Exacerbating factors: nothing Relieving factors: nothing Associated symptoms: nausea, vomiting, diarrhea and constipation Related Data Allergies Allergy/AdvReac Type Severity Reaction Status Date / Time No Known Allergies Allergy Verified 10/01/22 18:56 Review of Systems Review of Systems: All systems reviewed & are unremarkable except as noted in HPI and below Constitutional: Constitutional: Reports as per HPI and Reports no additional constitutional complaints Eyes: Eyes: Reports as per HPI and Reports no additional eye complaints ENT: Reports system reviewed and no additional complaints, except as documented and Reports as per HPI Cardiovascular: Cardiovascular: Reports as per HPI and Reports no additional cardiovascular complaints Respiratory: Respiratory: Reports as per HPI, Reports no additional respiratory complaints and Reports cough Gastrointestinal: Gastrointestinal: Reports as per HPI, Reports no additional gastrointestinal complaints, Reports abdominal pain, Reports constipation, Reports diarrhea, Reports nausea and Reports vomiting Genitourinary: Genitourinary: Reports no additional male genitourinary complaints and Reports as per HPI Musculoskeletal: Musculoskeletal: Reports no additional musculoskeletal complaints and Reports as per HPI Integumentary/Breasts: Skin/Breast: Reports system reviewed and no additional complaints, except as docu and Reports as per HPI Neurologic: Reports system reviewed and no additional complaints, except as documented and Reports as per HPI Psychiatric: Psychiatric: Reports no additional psychiatric complaints, Reports as per HPI and Reports anxiety Endocrine: Endocrine: Reports no additional endocrine complaints and Reports as per HPI Hematologic/Lymphatic: Hematologic/Lymphatic: Reports no additional hematologic/lymphatic complaints and Reports as per HPI [facility] Past Medical History Medical History Anxiety 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 Bilateral nephrolithiasis June 22, 2019 CT of abdomen and pelvis with contrast at [facility] in [facility]. Biliary sludge C. 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 Marihuana dependence Nausea & vomiting Tobacco dependence Surgical History Surgical History History of appendectomy History of eye surgery As a child. Hi
[2023-09-03] MEDS: PROCHLORPERAZINE EDISYLATE 10 MG/2 ML VIAL IV PUSH (10:02)
[2023-09-03] MEDS: HYDROmorphone HCL INJ (*CRX) 2 MG/ML VIAL 0.5 MG IV PUSH (10:02)
[2023-09-03 10:09] LABS: Basophils Absolute Auto 0.08 K/mm3 (0.00-0.10); Basophils Percent Auto 0.6 % (0.0-1.0); Eosinophils Absolute Auto 0.13 K/mm3 (0.02-0.50); Hemoglobin 15.6 g/dL (14.0-18.0); Immature Granulocyte Absolute 0.05 K/mm3 (0.00-0.00); Immature Granulocyte Percent A 0.4 % (0.0-0.0); Lymphocytes Absolute Auto 1.88 K/mm3 (1.10-4.50); Lymphocytes Percent Auto 15.1 % (18.0-42.0); Mean Corpuscular HGB Conc 32.5 g/dL (32-36); Mean Corpuscular Hemoglobin 29.9 pg (27.0-31.0); Mean Corpuscular Volume 92.1 fL (78.0-102.0); Mean Platelet Volume 9.7 fl (8.7-11.0); Monocytes Absolute Auto 0.62 K/mm3 (0.10-0.90); Neutrophils Absolute Auto 9.71 K/mm3 (1.70-7.20); Neutrophils Percent Auto 77.9 % (50.0-70.0); Platelet Count Result 311 K/mm3 (150-420); Red Blood Count 5.21 M/mm3 (4.70-6.10); Red Cell Distribution Width 13.5 % (11.6-14.4); White Blood Count 12.5 K/mm3 (4.8-10.8)
[2023-09-03 10:22] LABS: Prothrombin Time 10.6 Seconds (9.50-12.1)
[2023-09-03 10:26] LABS: Appearance Urine Clear (Clear); Bilirubin Urine Negative (Negative); Blood Urine 2+ (Negative); Color Urine Yellow (Yellow); Glucose Urine UA Negative (Negative); Ketones Urine Negative (Negative); Leukocyte Esterase Ur Negative LEU/UL (Negative); Nitrate Urine Negative (Negative); Protein Urine Negative (Negative); Specific Grav Ur >= 1.030 (1.010-1.020); Urobilinogen Urine 0.2 mg/dL (0.2-1.0); pH Urine 5.5 (5.0-8.0)
[2023-09-03 10:26] LABS: Alanine Aminotransferase 25 U/L (16-63); Alkaline Phosphatase 57 U/L (46-116); Anion Gap 7 mmol/L (4-12); Aspartate Amino Transferase 16 U/L (15-37); Bilirubin,Total 0.5 mg/dL (0.00-1.00); Blood Urea Nitrogen 17 mg/dL (7-18); Calcium 8.7 mg/dL (8.5-10.1); Carbon Dioxide 30 mmol/L (21-32); Chloride 102 mmol/L (98-108); Estimated Glomerular Filt Rate > 60; Glucose 112 mg/dL (70-99); Lipase 174 U/L (16-77); Osmolality Calculated 290 mOsm/kg (285-295); Potassium 3.7 mmol/L (3.5-5.1); Sodium 139 mmol/L (136-145); Total Protein 7.2 g/dL (6.4-8.2); Troponin I 19.6 ng/L (0.00-60.4)
[2023-09-03 10:29] LABS: Lactic Acid Reflex 1.1 mmol/L (0.4-2.0)
[2023-09-03 10:39] LABS: Add Urine Microscopic? YES; Calcium Oxalate Crystals Urine Present /hpf; WBC Urine None seen /hpf (0-3)
[2023-09-03 10:40] LABS: Bacteria Urine Trace /hpf; Mucus Urine Few /lpf
== END 2023-09-03 12:03 | disposition home or self-care (01) ==
PROVIDERS: Emergency Provider Internal Medicine Critical Care Medicine; PCP Family Medicine
DX: R10.84 Generalized abdominal pain (principal); G89.29 Other chronic pain; F41.9 Anxiety disorder, unspecified; F32.A Depression, unspecified; J43.9 Emphysema, unspecified; K21.9 Gastro-esophageal reflux disease without esophagitis; K44.9 Diaphragmatic hernia without obstruction or gangrene; F17.210 Nicotine dependence, cigarettes, uncomplicated; F12.90 Cannabis use, unspecified, uncomplicated
CPT/HCPCS: 36415; 74018; 80053; 81001; 83605; 83690; 84484; 85025; 85610; 96374; 96375; 99284; J0780; J1170

== ENCOUNTER 2023-09-05 13:51 | Emergency (ER) | payer MEDICARE, MEDICAID, SELFPAY ==
--- NOTE | ~2023-09-05 | CT_ITS ---
EXAMINATION: CT abdomen pelvis w con DATE: 09/05/2023 15:27 INDICATION: abdominal pain TECHNIQUE: Computed tomography (CT) of the abdomen and pelvis was performed 08/12/2023 intravenous con trast. Automated exposure control and iterative reconstruction technique were employed. The dose-isis th product was 242.86 mGy-cm. COMPARISON: None. FINDINGS: Lower thorax: Unremarkable Liver: Normal. Biliary/Gallbladder: Gallbladder is normal. No bile duct dilation. Pancreas: No mass or duct dilation. Spleen: Normal. Adrenals:No mass. Kidneys: No suspicious mass, obstructing stone, or hydronephrosis. GI tract: Mild distal esophageal and gastric wall edema No small or large bowel dilation. Surgically absent appendix. Diverticulosis without diverticulitis. Mesentery/Peritoneum: No ascites, mass, or free air. Retroperitoneum: No mass. Pelvis: Pelvic organs are within normal limits. Soft Tissues: Soft tissues and body wall unremarkable. Bones: No acute osseous finding. IMPRESSION: Mild esophagitis/gastritis. Otherwise, no acute abdominopelvic process detected. Reviewed, dictated and finalized at location K.
[2023-09-05 14:14] VITALS: TEMP 36.6
[2023-09-05 14:17] VITALS: BP 142/100; PULSE 72; RESP 20; O2SAT 96
[2023-09-05] MEDS: FAMOTIDINE 20 MG/2 ML VIAL IV PUSH (14:26)
[2023-09-05] MEDS: KETOROLAC 30 MG/ML VIAL (*BKC) IV PUSH (14:26)
[2023-09-05] MEDS: ONDANSETRON INJ 4 MG/2 ML VIAL IV PUSH (14:26)
[2023-09-05] MEDS: SODIUM CHLORIDE 0.9% IV 1,000 ML 999 ML IV CONT (14:26)
[2023-09-05 14:27] LABS: Basophils Absolute Auto 0.1 K/mm3 (0.0-0.1); Basophils Percent Auto 0.4 % (0.2-1.2); Eosinophils Percent Auto 0.3 % (0-4.4); Hematocrit 45.4 % (42.0-52.0); Hemoglobin 15.4 g/dL (14.0-18.0); Immature Granulocyte Absolute 0.07 K/mm3 (0.00-0.031); Immature Granulocyte Percent A 0.5 % (0-0.5); Lymphocytes Absolute Auto 2.01 K/mm3 (0.9-3.2); Lymphocytes Percent Auto 13.4 % (18.3-44.2); Mean Corpuscular HGB Conc 33.9 g/dl (32-36); Mean Corpuscular Hemoglobin 30.9 pg (26-34); Mean Platelet Volume 9.8 fl (7.4-10.4); Monocytes Absolute Auto 0.8 K/mm3 (0.1-0.6); Monocytes Percent Auto 5.2 % (2.6-8.5); Neutrophils Percent Auto 80.2 % (45.5-73.1); Platelet Count Result 307 k/mm3 (150-375); Red Blood Count 4.99 M/mm3 (4.6-6.20); Red Cell Distribution Width 13.5 % (11.5-14.5)
--- NOTE | 2023-09-05 14:36 | ED.GENADULT ---
HPI - General Adult General Chief complaint: Abdominal Pain Stated complaint: abd pain Time Seen by Provider: 09/05/23 13:53 History of Present Illness HPI narrative: Chucky Ojeda is a 57 y/o male who presents today with reports of having left lower abdominal pain/ all over abdominal pressure for about 2 weeks. He states that he really hasn't been able to keep much down in a few days. Last BM was yesterday after he took a laxative and it was diarrhea. He states that he vomited twice today yesterday he kept a little broth down After reviewing pt's medications he has antibiotics Flagyl and cipro that he was written for on 08/11 ( 3 1/2 weeks ago) that he has not finished- when asked about these he states they gave him those when he went to another hospital but he hasn't been able to take them or tolerate them. I asked if it was for diverticulitis ? he wasn't so sure Related Data Allergies Allergy/AdvReac Type Severity Reaction Status Date / Time No Known Allergies Allergy Verified 10/01/22 18:56 Review of Systems Review of Systems: CONSTITUTIONAL: reports feeling Hot and Cold EYES: Denies visual changes, redness, or discharge. ENT: Denies rhinorrhea, congestion, sore throat, or otalgia. CARDIOVASCULAR: Denies chest pain, palpitations, or edema. RESPIRATORY: Denies cough or dyspnea. GASTROINTESTINAL: + abdominal pain/ + Nausea/vomiting/ + diarrhea GENITOURINARY: Denies dysuria or hematuria. SKIN: Denies rash or itching. MUSCULOSKELETAL: Denies back pain, joint pain, or myalgia. NEUROLOGIC: Denies headache, numbness, dizziness, or weakness. PSYCHIATRIC: Denies anxiety or depression. 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 Bilateral nephrolithiasis June 22, 2019 [place] [facility] [place] [facility]. Biliary sludge C. 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 Marihuana dependence Nausea & vomiting Tobacco dependence Surgical History Surgical History History of appendectomy History of eye surgery As a child. History of inguinal hernia repair (~07/2013) Bilateral. Family History Family History Other Family history not known due to adoption Patient grew up in foster care and does not know his biological family or any medical history regarding such. Social History Social History Social History: The patient lives in [place] with his . They have 4 grown children. 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 He smokes 0.5 packs of cigarettes per day, but at most smoked 1.5 packs of cigarettes per day while he was driving. He uses marijuana socially. He drinks alcohol perhaps 1 time a month, and in moderation. He designates his , Sharon, as his surrogate decision maker and he wishes to be a full code. Smoking packs per day: 0.5 Smoking cigarettes per day: 10.0 Years smoked: 40 Smoking pack-years: 20.00 Smoking status: Current every day smoker Tobacco type: cigarettes Second hand tobacco smoke exposure: Yes Alcohol intake: never Alcohol use details: rarely Substance use: current Substance use type: marijuana Other substance usage details: 3x an week Lack of Transportation: No Lack of Food: Never True Current Housing: I Have Housing Concerned About Future Housing: No Di
[2023-09-05 14:41] LABS: Alanine Aminotransferase 18 U/L (6-50); Alkaline Phosphatase 68 U/L (38-126); Anion Gap 7 mmol/L (4-12); Aspartate Amino Transferase 19 U/L (17-59); Blood Urea Nitrogen 10 mg/dL (9-20); Carbon Dioxide 25 mmol/L (22-30); Chloride 106 mmol/L (98-107); Estimated CRCL calculation 79 ml/min; Estimated Glomerular Filt Rate > 60; Glucose 110 mg/dL (65-110); Lipase 52 U/L (23-300); Potassium 3.8 mmol/L (3.4-5.0); Sodium 138 mmol/L (137-145)
[2023-09-05 14:42] LABS: Lactic Acid Reflex 0.9 mmol/L (0.7-2.0)
[2023-09-05 15:39] VITALS: BP 138/86; PULSE 65; RESP 16; O2SAT 96
[2023-09-05 15:44] LABS: Appearance Urine Clear (Clear); Bacteria Urine None Seen /hpf; Bilirubin Urine Negative (Negative); Blood Urine Non-Hemolyzed Trace (Negative); Color Urine Yellow (Yellow); Glucose Urine UA Negative (Negative); Ketones Urine Negative (Negative); Leukocyte Esterase Ur Negative LEU/UL (Negative); Nitrate Urine Negative (Negative); Non Pathogenic Casts 0-2; Protein Urine Negative (Negative); Specific Grav Ur 1.024 (1.001-1.035); Squamous Epithelial Cell Urine None Seen /hpf (Few); Urobilinogen Urine 0.2 mg/dL (<2.0); WBC Urine 0-5 /hpf (0-3)
[2023-09-05 15:46] LABS: Add Urine Microscopic? YES
[2023-09-05 16:40] VITALS: BP 125/88; PULSE 60; RESP 16; O2SAT 95
[2023-09-05] MEDS: AMOXICILLIN 500 MG CAPSULE 1000 MG PO (17:08)
[2023-09-05] MEDS: DICYCLOMINE HCL INJ 20 MG/2 ML VIAL IM (17:08)
[2023-09-05] MEDS: CLARITHROMYCIN 500 MG TABLET PO (17:08)
--- NOTE | 2023-09-05 17:12 | PC.NURSE ---
water provided for PO challenge
--- NOTE | 2023-09-05 17:58 | PC.NURSE ---
Pt reports no N/V or pain after PO challenge of clear liquids
[2023-09-05 18:05] VITALS: BP 135/87; PULSE 58; RESP 18; O2SAT 96
== END 2023-09-05 18:45 | disposition home or self-care (01) ==
PROVIDERS: Emergency Provider Nurse Practitioner Family; PCP Family Medicine
DX: K29.00 Acute gastritis without bleeding (principal); F17.210 Nicotine dependence, cigarettes, uncomplicated; F41.9 Anxiety disorder, unspecified; F32.A Depression, unspecified; K21.9 Gastro-esophageal reflux disease without esophagitis
CPT/HCPCS: 36415; 74177; 80053; 81001; 83605; 83690; 85025; 96361; 96372; 96374; 96375; 99284; A9270; J0500; J1885; J2405; J7030; Q9967

== ENCOUNTER 2023-09-06 13:49 | Observation (INO) | payer MEDICARE, MEDICAID, SELFPAY ==
[2023-09-06] VITALS (9 sets, daily range): BP systolic 113–157; BP diastolic 68–98; PULSE 54–74; RESP 18–20; TEMP 36.6–37; O2SAT 90–98; BMI 24.3
--- NOTE | 2023-09-06 13:59 | ECG_ITS ---
SEE SCANNED COPY FOR CONFIRMED REPORT MTDD
--- NOTE | 2023-09-06 14:04 | ED.GENADULT ---
HPI - General Adult General Chief complaint: Abdominal Pain Stated complaint: abdominal pain, n/v Time Seen by Provider: 09/06/23 13:56 History of Present Illness HPI narrative: Chucky is a 57M with a PMH of diverticulosis, gastritis, IBS, cannabis abuse, tobacco abuse, pancreatitis, emphysema that presented to the ED with abdominal pain, nausea and non-bloody vomiting that was worse this morning. He was diagnosed with a flare of chronic abdominal pain at this facility 3 days ago with a negative workup and went home Chlorpazine. This did not help and he went to [facility] yesterday. He was diagnosed with esophagitis/gastritis. He had mild leukocytosis but his labwork and CT were unremarkable. 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 There is no CP, lightheadedness, fevers or chills. Last MJ use was reportedly 2 weeks ago. 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 Bilateral nephrolithiasis June 22, 2019 [place] [facility] [place] [facility]. Biliary sludge C. 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 Marihuana dependence Nausea & vomiting Tobacco dependence Surgical History Surgical History History of appendectomy History of eye surgery As a child. History of inguinal hernia repair (~07/2013) Bilateral. Family History Family History Other Family history not known due to adoption Patient grew up in foster care and does not know his biological family or any medical history regarding such. Social History Social History Social History: The patient lives in [place] with his . They have 4 grown children. 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 He smokes 0.5 packs of cigarettes per day, but at most smoked 1.5 packs of cigarettes per day while he was driving. He uses marijuana socially. He drinks alcohol perhaps 1 time a month, and in moderation. He designates his , Sharon, as his surrogate decision maker and he wishes to be a full code. Smoking packs per day: 0.5 Smoking cigarettes per day: 10.0 Years smoked: 40 Smoking pack-years: 20.00 Smoking status: Current every day smoker Second hand tobacco smoke exposure: Yes Alcohol intake: never Alcohol use details: rarely Substance use: current Substance use type: marijuana Other substance usage details: 3x an week Do You Feel Safe in your Home?: Yes Lack of Transportation: No Lack of Food: Never True Current Housing: I Have Housing Concerned About Future Housing: No Difficulty Paying Gas/Electric Bills: No Difficulty Paying for Meds: No Currently Unemployed: No Education: High School Diploma/GED Difficulty w/ Childcare or Family Care: No Living arrangements: with family Spiritual care concerns: No Exam Const: General: cooperative, healthy appearing, comfortable, no acute distress, well developed, alert, awake and Physically active Orientation/consciousness: oriented to person, oriented to place and oriented to time
[2023-09-06] MEDS: MORPHINE SULFATE (*CRX) 4 MG/ML INJ IV PUSH (14:27)
[2023-09-06] MEDS: LORazepam INJ (*CRX) 2 MG/ML VIAL 0.5 MG IV PUSH (14:28)
[2023-09-06 14:36] LABS: Basophils Absolute Auto 0.09 K/mm3 (0.00-0.10); Basophils Percent Auto 0.5 % (0.0-1.0); Eosinophils Percent Auto 0.6 % (1.0-6.0); Hematocrit 47.3 % (40.0-54.0); Hemoglobin 15.7 g/dL (14.0-18.0); Immature Granulocyte Absolute 0.11 K/mm3 (0.00-0.00); Immature Granulocyte Percent A 0.7 % (0.0-0.0); Lymphocytes Absolute Auto 1.54 K/mm3 (1.10-4.50); Lymphocytes Percent Auto 9.2 % (18.0-42.0); Mean Corpuscular HGB Conc 33.2 g/dL (32-36); Mean Corpuscular Hemoglobin 30.7 pg (27.0-31.0); Mean Corpuscular Volume 92.4 fL (78.0-102.0); Mean Platelet Volume 10.2 fl (8.7-11.0); Monocytes Absolute Auto 0.74 K/mm3 (0.10-0.90); Monocytes Percent Auto 4.4 % (2.0-11.0); Neutrophils Absolute Auto 14.23 K/mm3 (1.70-7.20); Neutrophils Percent Auto 84.6 % (50.0-70.0); Platelet Count Result 292 K/mm3 (150-420); Red Blood Count 5.12 M/mm3 (4.70-6.10); Red Cell Distribution Width 13.4 % (11.6-14.4); White Blood Count 16.8 K/mm3 (4.8-10.8)
[2023-09-06 14:49] LABS: Prothrombin Time 10.9 Seconds (9.50-12.1)
[2023-09-06] MEDS: ONDANSETRON INJ 4 MG/2 ML VIAL IV PUSH (15:39)
[2023-09-06] MEDS: SODIUM CHLORIDE 0.9% IV 1,000 ML 999 ML IV CONT (15:39)
[2023-09-06 16:07] LABS: Alanine Aminotransferase 20 U/L (6-50); Albumin Level 4.3 g/dL (3.5-5.1); Alkaline Phosphatase 73 U/L (38-126); Anion Gap 8 mmol/L (4-12); Aspartate Amino Transferase 37 U/L (17-59); Blood Urea Nitrogen 13 mg/dL (9-20); CRP < 0.5 mg/dL (<1.0); Carbon Dioxide 21 mmol/L (22-30); Chloride 107 mmol/L (98-107); Estimated CRCL calculation 71 ml/min; Estimated Glomerular Filt Rate > 60; Glucose 126 mg/dL (65-110); Lipase 51 U/L (23-300); Potassium 3.9 mmol/L (3.4-5.0); Sodium 136 mmol/L (137-145)
[2023-09-06 16:11] LABS: Lactic Acid Reflex 1.6 mmol/L (0.7-2.0)
[2023-09-06 16:29] LABS: Troponin I < 4.0 ng/L (0.00-60.4)
[2023-09-06 16:30] LABS: NT Pro B Type Natriuretic Pept 65 pg/mL (0-125)
[2023-09-06] MEDS: PANTOPRAZOLE SODIUM IV 40 MG VIAL IV PUSH ×2 (18:05→23:10)
[2023-09-06 18:35] LABS: Amphetamine Screen Urine Negative (Negative); Barbiturate Screen Urine Negative (Negative); Benzodiazepines Screen Urine Negative (Negative); Cannabinoid Screen Urine Positive (Negative); Cocaine Screen Urine Negative (Negative); Methadone Screen Urine Negative (Negative); Opiate Screen Urine Positive (Negative); Phencyclidine Screen Urine Negative (Negative)
[2023-09-06] MEDS: SODIUM CHLORIDE 0.9% IV 1,000 ML 125 ML IV CONT (19:20)
[2023-09-06] MEDS: NICOTINE (*PBKC) 21 MG PATCH 1 PATCH TRANSDERM (19:23)
[2023-09-06] MEDS: MORPHINE SULFATE (*CRX) 2 MG/ML INJ IV PUSH ×2 (19:24→23:14)
--- NOTE | 2023-09-06 19:31 | ADMGEN ---
This patient, Chucky Ojeda, was admitted to 2nd Floor Room 209-1. Patient/family oriented to hospital policies and general routines including ID bracelet, bed and alarms, visiting hours, pain management, procedures, bathroom and other care routines, personal items, smoking policy, room service/diet, and visiting hours. Information on how to activate the Rapid Response Team has been discussed. Patient/Family are encouraged to report perceived risks to care and to ask questions if they do not understand what they are told or what they should do.
--- NOTE | 2023-09-06 19:39 | PC.NURSE ---
Pt states he has been to multiple EDs in the past few days, [place] and [place]. States at [place] they gave RX for Amoxicillin for gastroenteritis, has not started medication yet.
[2023-09-07] MEDS: ACETAMINOPHEN 325 MG TABLET 650 MG PO (01:49)
[2023-09-07] MEDS: ONDANSETRON INJ 4 MG/2 ML VIAL IV PUSH (01:50)
[2023-09-07] MEDS: SODIUM CHLORIDE 0.9% IV 1,000 ML 125 ML IV CONT ×2 (03:12→10:16)
[2023-09-07 08:00] VITALS: BP 128/74; PULSE 74; RESP 18; TEMP 36.6; O2SAT 94
[2023-09-07 09:33] LABS: Basophils Absolute Auto 0.07 K/mm3 (0.00-0.10); Basophils Percent Auto 0.6 % (0.0-1.0); Eosinophils Percent Auto 0.8 % (1.0-6.0); Hematocrit 43.7 % (40.0-54.0); Hemoglobin 14.2 g/dL (14.0-18.0); Immature Granulocyte Absolute 0.06 K/mm3 (0.00-0.00); Immature Granulocyte Percent A 0.5 % (0.0-0.0); Lymphocytes Absolute Auto 1.93 K/mm3 (1.10-4.50); Lymphocytes Percent Auto 16.1 % (18.0-42.0); Mean Corpuscular HGB Conc 32.5 g/dL (32-36); Mean Corpuscular Hemoglobin 30.4 pg (27.0-31.0); Mean Corpuscular Volume 93.6 fL (78.0-102.0); Mean Platelet Volume 9.8 fl (8.7-11.0); Monocytes Absolute Auto 0.49 K/mm3 (0.10-0.90); Monocytes Percent Auto 4.1 % (2.0-11.0); Neutrophils Absolute Auto 9.34 K/mm3 (1.70-7.20); Neutrophils Percent Auto 77.9 % (50.0-70.0); Platelet Count Result 257 K/mm3 (150-420); Red Blood Count 4.67 M/mm3 (4.70-6.10); Red Cell Distribution Width 13.3 % (11.6-14.4)
[2023-09-07 09:55] LABS: Alanine Aminotransferase 19 U/L (16-63); Albumin Level 2.7 g/dL (3.4-5.0); Alkaline Phosphatase 56 U/L (46-116); Anion Gap 14 mmol/L (4-12); Aspartate Amino Transferase 15 U/L (15-37); Bilirubin,Total 0.9 mg/dL (0.00-1.00); Blood Urea Nitrogen 12 mg/dL (7-18); Calcium 7.8 mg/dL (8.5-10.1); Carbon Dioxide 21 mmol/L (21-32); Chloride 103 mmol/L (98-108); Estimated CRCL calculation 71 ml/min; Estimated Glomerular Filt Rate > 60; Glucose 62 mg/dL (70-99); Osmolality Calculated 283 mOsm/kg (285-295); Potassium 3.6 mmol/L (3.5-5.1); Sodium 138 mmol/L (136-145)
[2023-09-07] MEDS: NICOTINE (*PBKC) 21 MG PATCH 1 PATCH TRANSDERM (10:11)
[2023-09-07] MEDS: MORPHINE SULFATE (*CRX) 2 MG/ML INJ IV PUSH (10:15)
--- NOTE | 2023-09-07 14:27 | PM.SD2 ---
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 Patient was seen at [facility] all within the last 3 weeks for similar complaints. Patient describes his pain as pressure which is constant in his abdomen with associated acid reflux and belching. He was prescribed amoxicillin and clarithromycin from 1 of the outside hospital's however he never filled these medications. When he presented to the Outside hospitals he was prescribed narcotic pain medications on a few of those occasions for his abdominal pain. he seen Dr. Mera back in April of 2021 and had an EGD which shown mild gastritis without any erosions or ulcers and a hiatal hernia. workup in the hospital today included labs that showed a white blood cell count of 16.8 which is now down to 12.0, sodium 138, anion gap 14, liver enzymes were normal. He did test positive for opiates and cannabinoids on urine drug screen. Recent imaging reviewed of an abdomen pelvis CT which was done on 09/05/2023 which showed mild esophagitis/gastritis otherwise no acute abnormality detected. An abdomen x-ray was also done on 09/03/2023 which was negative. on examination today patient denies any vomiting, diarrhea, chest pain, shortness a breath, fever, chills. He endorses diffuse abdominal pain throughout the whole abdomen, nausea without vomiting, acid reflux and belching. I discussed with the patient that he has been seen 3 times in the last 3 weeks with similar complaints at 3 different hospitals and that he really needs to go see Dr. Mera back in his office for possible outpatient EGD to make sure that he does not have a new developing ulcer since his last EGD. I discussed that we will go ahead and discharge him today with plans for him to increase his diet as tolerated from clears to a regular diet. He needs to avoid any spicy or fried foods. I did prescribe him Protonix 40 mg b.i.d. and he will need to continue his nausea meds that have already been prescribed. An appointment was scheduled for September 28 with Germania who is a nurse practitioner with Dr. Mera. I instructed him to avoid any NSAIDs including ibuprofen, Motrin, aspirin. If he is still having abdominal pain he can take some Tylenol as this will be less harsh on his stomach lining. 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 Bilateral nephrolithiasis June 22, 2019 CT of abdomen and pelvis with contrast at [facility] in [facility]. Biliary sludge C. 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 Marihuana dependence Nausea & vomiting Tobacco dependence Surgical History Surgical History History of appendectomy History of eye surgery As a child. History of inguinal hernia repair (~07/2013) Bilateral. Family History Family History Other Family history not known due to adoption Patient grew up in foster care and does not know his biological family or any medical history regarding such. Social History Social History
--- NOTE | 2023-09-08 08:57 | PC.NURSE ---
Call back, spoke with as patient was on the other phone, advised to call for any questions regarding dc instructions
== END 2023-09-07 15:30 | disposition home or self-care (01) ==
LOC: CHSED 18:04 → CHS2ND 18:06
PROVIDERS: Admitting Provider Internal Medicine; Emergency Provider Family Medicine; PCP Family Medicine; Visit Provider Nurse Practitioner Acute Care
DX: K29.70 Gastritis, unspecified, without bleeding (principal); K57.30 Diverticulosis of large intestine without perforation or abscess without bleeding; K58.9 Irritable bowel syndrome, unspecified; K21.9 Gastro-esophageal reflux disease without esophagitis; J43.9 Emphysema, unspecified; M54.9 Dorsalgia, unspecified; G89.29 Other chronic pain; G51.0 Bell's palsy; H35.30 Unspecified macular degeneration; H54.8 Legal blindness, as defined in USA; F32.A Depression, unspecified; F41.9 Anxiety disorder, unspecified; F17.210 Nicotine dependence, cigarettes, uncomplicated; F12.10 Cannabis abuse, uncomplicated
CPT/HCPCS: 36415; 80053; 80307; 83605; 83690; 83880; 84484; 85025; 85610; 86140; 93005; 96361; 96374; 96375; 96376; 99285; A9270; C9113; G0378; J2060; J2270; J2405; J7030

== ENCOUNTER 2024-04-25 09:07 | Emergency (ER) | payer MEDICARE, MEDICAID, SELFPAY ==
[2024-04-25] VITALS (19 sets, daily range): BP systolic 101–159; BP diastolic 60–100; PULSE 73–107; RESP 16–250; TEMP 36.3–37; O2SAT 90–100
--- NOTE | ~2024-04-25 | CT_ITS ---
EXAMINATION: CT chest abdomen pelvis wo con DATE: 04/25/2024 10:18 INDICATION: Cough. Left abdominal pain. Left groin pain. Nausea and vomiting. TECHNIQUE: Computed tomography (CT) of the chest, abdomen, and pelvis was performed without intraveno us contrast. Automated exposure control and iterative reconstruction technique were employed. The dos e-length product was 527.82 mGy-cm. COMPARISON: CT abdomen and pelvis 09/05/2023 FINDINGS: CHEST CT: There is severe emphysema. There is mild atelectasis bilaterally. There is mild bronchiectasis in rig ht middle lobe and lingula. No pleural effusion. The heart size is normal. There are coronary artery calcifications. No pericardial effusion. There is mild thoracic spondylosis. ABDOMEN/PELVIS CT: The liver, gallbladder, spleen, pancreas, and adrenal glands are normal. There is a 2 mm stone in rig ht kidney. There is a 2 mm stone in left kidney. There is a left inguinal hernia containing fat. Ther e is diverticulosis of the colon without evidence of diverticulitis. There are changes of appendectom y. There are no pathologically enlarged lymph nodes. There is no free intraperitoneal fluid. There is mild lumbar spondylosis. IMPRESSION: 1. Left inguinal hernia containing fat. 2. Severe emphysema. Reviewed, dictated and finalized at location A. [facility]
--- NOTE | 2024-04-25 09:17 | ED.GENADULT ---
HPI - General Adult General Chief complaint: Abdominal Pain Stated complaint: abd pain Time Seen by Provider: 04/25/24 09:08 Source: patient Mode of arrival: ambulatory Limitations: no limitations History of Present Illness HPI narrative: 58-year-old white male complains of abdominal pain nausea vomiting diarrhea for the last 3 days. patient said he had done 10 loose watery nonbloody stools in last 24 hours and vomited several times since this morning at 5/6 morning to prominent blood. He is out of his Protonix for his stomach ulcer. He ran out 1 week ago. Tried taking some Zofran but he threw it up. Complains of chronic left lower quadrant groin pain that he has had for years he says he has had a hernia there they would return parents but they said they would have chronic pain afterwards. He has had some chest congestion smoking 5 cigarettes a day denies any shortness of breath or cough he has had runny nose and nasal congestion. Denies any rash or itching bleeding or bruising lumps or bumps or swelling he has had some dizziness when he stands he has had decreased p.o. intake the last few days. Quit marijuana on the as a new year's resolution last use meth 4 years ago. He is followed by Dr. Diego Cox last seen him in a year ago. Patient denies any other complaints. 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 Bilateral nephrolithiasis June 22, 2019 CT of abdomen and pelvis with contrast at [facility] in [facility]. Biliary sludge C. 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 Marihuana dependence Nausea & vomiting Tobacco dependence Surgical History Surgical History History of appendectomy History of eye surgery As a child. History of inguinal hernia repair (~07/2013) Bilateral. Family History Family History Other Family history not known due to adoption Patient grew up in foster care and does not know his biological family or any medical history regarding such. Social History Social History Social History: The patient lives in [place] with his . They have 4 grown children. 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 He smokes 0.5 packs of cigarettes per day, but at most smoked 1.5 packs of cigarettes per day while he was driving. He uses marijuana socially. He drinks alcohol perhaps 1 time a month, and in moderation. He designates his , Sharon, as his surrogate decision maker and he wishes to be a full code. Smoking packs per day: 0.5 Smoking cigarettes per day: 10.0 Years smoked: 40 Smoking pack-years: 20.00 Smoking status: Current every day smoker Second hand tobacco smoke exposure: Yes Alcohol intake: never Alcohol use details: rarely Substance use: current Substance use type: marijuana Other substance usage details: 3x an week Do You Feel Safe in your Home?: Yes Lack of Transportation: No Lack of Food: Never True Current Housing: I Have Housing Concerned About Future Housing: No Difficulty Paying Gas/Electric Bills: No Difficulty Paying for Meds: No Currently Unemployed: No Education: High School Diploma/GED Difficulty w/ Childcare or Family Care: No Living arrangements: with family Spiritual care concerns: No Exam Narrative: ?White male patient Looks older than his stated age with Moderate distress.? Head normocephalic, atraumatic.? Eyes conjunctiva pink sclera nonicteric.? Extraocular movements are intact.? Ears externally normal.? Oropharynx is clear with moist mucous membranes without exudates.? Neck is supple nontender no lymphadenopathy.? Back is nontender.? Lungs bronchial breath sounds very slight wheezing.? Heart is regular rate and rhythm without murmurs gallops or rubs.? Chest wall nontender. Abdomen is soft and no hepatosplenomegaly or masses no CVA tenderness no abdominal bruits.? He has diffuse guarding but tenderness left lower quadrant without any rebound. Male genitalia is normal testes are normal. I do not palpate any inguinal hernias. Extremities no cyanosis clubbing or edema.? Skin is warm and dry without rashes or lesions.? Neurological patient is alert and oriented x4.? Motor and sensory grossly intact.? Gait is normal. Course Vital Signs Vital signs: Vital Signs Temperature 36.3 C L 04/25/24 09:10 Pulse Rate 107 H 04/25/24 09:10 Respiratory Rate 22 H 04/25/24 09:10 Blood Pressure 157/91 H 04/25/24 09:10 Pulse Oximetry 97 04/25/24 09:10 Oxygen Delivery Room Air 04/25/24 09:10 Temperature 36.3 C L 04/25/24 09:10 Pulse Rate 99 04/25/24 10:27 Respiratory Rate 250 H 04/25/24 10:27 Blood Pressure 103/65 04/25/24 10:27 Pulse Oximetry 94 04/25/24 10:27 Oxygen Delivery Room Air 04/25/24 09:50 Medical Decision Making [facility] Narrative Medical decision making narrative: ?Patient placed in room: Room 1 ? History and physical was performed. normal flu COVID RSV lipase CBC coags and lactic acid and urine . BUN 24 calcium 8.2 magnesium 1.5 albumin 3.2 Osmo 271 rest of CMP is normal. urine drug screens positive for THC COVID flu and RSV all negative CT chest abdomen and pelvis per radiologist 1. Left inguinal hernia containing fat. 2. Severe emphysema. 3. 2 mm left and right kidney stones without obstruction Independent Historian: patient External Source Review: [facility] ED visit a year ago with abdominal pain Differential Dx includes but not limited to: cyclic vomiting upper GI bleeding gastritis ulcer diverticulitis pneumonia COVID flu RSV Medications were Reviewed: home meds reviewed Medications given: normal saline 1 L Zofran 4 mg IV, Toradol 30 mg IV 11:49 a.m.:feels better wishing to be discharged Independently Interpreted by me: cursory bedside ultrasound restart look good with regard to cardiac function. Lungs showed positive a lines Shared decision Making: evaluation was discussed all questions were asked and answered patient agreed with plan. You take Mag-Ox 400 mg twice a day for 10 days follow-up with his primary care provider continue his Protonix 40 mg daily and Zofran 4 mg ODT q.4 hours p.r.n. nausea vomiting Social Situation Impacting Patients Care: chronic abdominal pain Discussed with Dr. REDDY DIAGNOSIS: Nausea vomiting diarrhea abdominal pain chronic, hypo magnesemia DISPOSITION : discharge home CONDITION AT DISCHARGE: stable Vital Signs Vital Signs: Vital Signs Temperature 36.3 C L 04/25/24 09:10 Pulse Rate 107 H 04/25/24 09:10 Respiratory Rate 22 H 04/25/24 09:10 Blood Pressure 157/91 H 04/25/24 09:10 Pulse Oximetry 97 04/25/24 09:10 Oxygen Delivery Room Air 04/25/24 09:10 Temperature 36.3 C L 04/25/24 09:10 Pulse Rate 99 04/25/24 10:27 Respiratory Rate 250 H 04/25/24 10:27 Blood Pressure 103/65 04/25/24 10:27 Pulse Oximetry 94 04/25/24 10:27 Oxygen Delivery Room Air 04/25/24 09:50 Lab Data 04/25/24 09:45 04/25/24 09:45 Labs: Lab Results 04/25/24 04/25/24 04/25/24 Range/Units 09:29 09:30 09:45 WBC 10.3 (4.8-10.8) K/mm3 RBC 5.09 (4.70-6.10) M/mm3 Hgb 15.7 (14.0-18.0) g/dL Hct 46.0 (40.0-54.0) % MCV 90.4 (78.0-102.0) fL MCH 30.8 (27.0-31.0) pg MCHC 34.1 (32-36) g/dL RDW 13.4 (11.6-14.4) % Plt Count 293 (150-420) K/mm3 MPV 9.6 (8.7-11.0) fl PT 10.9 (9.50-12.1) Seconds INR 1.0 APTT 25.9 (23.9-30.70) Sec Sodium 140 (136-145) mmol/L Potassium 3.8 (3.5-5.1) mmol/L Chloride 105 (98-108) mmol/L Carbon Dioxide 24 (21-32) mmol/L Anion Gap 11 (4-12) mmol/L BUN 24 H (7-18) mg/dL Creatinine 0.96 (0.70-1.30) mg/dL Estim Creat Clear Calc 68 ml/min Estimated GFR > 60 (59 - ) Glucose 146 H (70-99) mg/dL Calculated Osmolality 297 H (285-295) mOsm/kg Lactic Acid 1.1 (0.4-2.0) mmol/L Calcium 8.2 L (8.5-10.1) mg/dL Magnesium 1.6 L (1.8-2.4) mg/dL Total Bilirubin 0.5 (0.00-1.00) mg/dL AST 22 (15-37) U/L ALT 39 (16-63) U/L Alkaline Phosphatase 62 (46-116) U/L Total Protein 6.6 (6.4-8.2) g/dL Albumin 3.2 L (3.4-5.0) g/dL Lipase 28 (16-77) U/L Urine Color Pending Urine Appearance Pending Urine pH Pending Ur Specific [place] Pending Urine Protein Pending Urine Glucose (UA) Pending Urine Ketones Pending Ur Blood (Man) Pending Urine Nitrate Pending Urine Bilirubin Pending Urine Urobilinogen Pending Leukocyte Esterase Rfl Pending Urine Opiates Screen Pending Urine Methadone Screen Pending Ur Barbiturates Screen Pending Ur Phencyclidine Scrn Pending Ur Amphetamine Screen Pending U Benzodiazepines Scrn Pending Urine Cocaine Screen Pending U Cannabinoids Screen Pending Influenza A (RT-PCR) Negative (Negative) Influenza B (RT-PCR) Negative (Negative) RSV (RT-PCR) Negative (Negative) SARS-CoV-2 RNA (RT-PCR) Negative (Negative) Discharge Plan Discharge Patient Language: Guamanian Prescriptions: No Action ondansetron 4 mg tablet,disintegrating 4 mg PO Q6H PRN (Reason: nausea and vomiting) Qty: 10 0RF pantoprazole [Protonix] 40 mg tablet,delayed release (DR/EC) 40 mg PO BID Qty: 60 0RF Follow-up/Referrals: Kenny,MD Diego [Primary Care Provider] -
[2024-04-25] MEDS: SODIUM CHLORIDE 0.9% IV 1,000 ML 999 ML IV CONT (09:42)
[2024-04-25] MEDS: KETOROLAC 30 MG/ML VIAL (*BKC) IV PUSH (09:43)
[2024-04-25] MEDS: IPRATROPIUM 0.5 MG/ALBUTEROL SULFATE 2.5 MG AMPUL.NEB 3 ML INHALATION (09:45)
[2024-04-25] MEDS: ONDANSETRON INJ 4 MG/2 ML VIAL IV PUSH (09:45)
[2024-04-25] MEDS: PANTOPRAZOLE SODIUM IV 40 MG VIAL IV PUSH (09:46)
[2024-04-25 09:50] LABS: Hemoglobin 15.7 g/dL (14.0-18.0); Mean Corpuscular HGB Conc 34.1 g/dL (32-36); Mean Corpuscular Hemoglobin 30.8 pg (27.0-31.0); Mean Corpuscular Volume 90.4 fL (78.0-102.0); Mean Platelet Volume 9.6 fl (8.7-11.0); Platelet Count Result 293 K/mm3 (150-420); Red Blood Count 5.09 M/mm3 (4.70-6.10); Red Cell Distribution Width 13.4 % (11.6-14.4); White Blood Count 10.3 K/mm3 (4.8-10.8)
[2024-04-25 10:05] LABS: Partial Thromboplastin Time 25.9 Sec (23.9-30.70); Prothrombin Time 10.9 Seconds (9.50-12.1)
[2024-04-25 10:08] LABS: Alanine Aminotransferase 39 U/L (16-63); Albumin Level 3.2 g/dL (3.4-5.0); Alkaline Phosphatase 62 U/L (46-116); Anion Gap 11 mmol/L (4-12); Aspartate Amino Transferase 22 U/L (15-37); Bilirubin,Total 0.5 mg/dL (0.00-1.00); Blood Urea Nitrogen 24 mg/dL (7-18); Calcium 8.2 mg/dL (8.5-10.1); Carbon Dioxide 24 mmol/L (21-32); Chloride 105 mmol/L (98-108); Estimated CRCL calculation 68 ml/min; Estimated Glomerular Filt Rate > 60; Glucose 146 mg/dL (70-99); Lipase 28 U/L (16-77); Osmolality Calculated 297 mOsm/kg (285-295); Potassium 3.8 mmol/L (3.5-5.1); Sodium 140 mmol/L (136-145); Total Protein 6.6 g/dL (6.4-8.2)
[2024-04-25 10:10] LABS: Lactic Acid Reflex 1.1 mmol/L (0.4-2.0); Magnesium 1.6 mg/dL (1.8-2.4)
[2024-04-25 10:46] LABS: SARS-CoV-2 RNA PCR Negative (Negative)
[2024-04-25 10:47] LABS: Influenza A QL RT-PCR Negative (Negative); Influenza B QL RT-PCR Negative (Negative); RSV RNA, RT-PCR Negative (Negative)
[2024-04-25] MEDS: MAGNESIUM OXIDE 400 MG TABLET PO (11:13)
[2024-04-25 11:22] LABS: Add Urine Microscopic? YES; Appearance Urine Clear (Clear); Bilirubin Urine Negative (Negative); Blood Urine 1+ (Negative); Color Urine Yellow (Yellow); Glucose Urine UA Negative (Negative); Ketones Urine Trace (Negative); Leukocyte Esterase Ur Negative LEU/UL (Negative); Nitrate Urine Negative (Negative); Protein Urine Trace (Negative); Specific Grav Ur >= 1.030 (1.010-1.020); Urobilinogen Urine 0.2 mg/dL (0.2-1.0); pH Urine 5.5 (5.0-8.0)
[2024-04-25 11:28] LABS: WBC Urine None seen /hpf (0-3)
[2024-04-25 11:29] LABS: Bacteria Urine Trace /hpf; Calcium Oxalate Crystals Urine Present /hpf
[2024-04-25 11:31] LABS: Amphetamine Screen Urine Negative (Negative); Barbiturate Screen Urine Negative (Negative); Benzodiazepines Screen Urine Negative (Negative); Cannabinoid Screen Urine Positive (Negative); Cocaine Screen Urine Negative (Negative); Methadone Screen Urine Negative (Negative); Opiate Screen Urine Negative (Negative); Phencyclidine Screen Urine Negative (Negative)
== END 2024-04-25 12:10 | disposition home or self-care (01) ==
PROVIDERS: Emergency Provider Emergency Medicine; PCP Family Medicine
DX: R11.2 Nausea with vomiting, unspecified (principal); R19.7 Diarrhea, unspecified; R10.9 Unspecified abdominal pain; G89.29 Other chronic pain; E83.42 Hypomagnesemia; F17.210 Nicotine dependence, cigarettes, uncomplicated; F12.90 Cannabis use, unspecified, uncomplicated; Z20.822 Contact with and (suspected) exposure to COVID-19
CPT/HCPCS: 36415; 71250; 74176; 80053; 80307; 81001; 83605; 83690; 83735; 85027; 85610; 85730; 87637; 94640; 96361; 96374; 96375; 99284; A9270; J1885; J2405; J2470; J7030

== ENCOUNTER 2024-12-23 21:36 | Emergency (ER) | payer MEDICARE, MEDICAID, SELFPAY ==
--- NOTE | ~2024-12-23 | CT_ITS ---
EXAMINATION: CT abdomen pelvis w con, 12/23/2024 23:20 CDT HISTORY: LUQ ABD PAIN. COMPARISON: No comparisons available. TECHNIQUE: CT scan of the abdomen and pelvis was performed with contrast. Isovue 300, 92cc injected IV. One or more of the following dose reduction techniques were used: automated exposure control, adjustment of the mA and/or kV according to patient size, use of iterative reconstruction technique. Unless otherwise stated, incidental findings do not require dedicated follow up imaging FINDINGS: CT abdomen: LUNG BASES: The lung bases are clear. The visualized portions of the heart and pericardium are unremarkable. LIVER: Unremarkable, liver contours intact, no lesions. SPLEEN: Unremarkable, no splenomegaly. KIDNEYS: Right Kidney: Unremarkable. No calculi. No hydronephrosis. Left Kidney: Unremarkable. No calculi. No hydronephrosis ADRENAL GLANDS: Unremarkable. PANCREAS: Unremarkable. GALLBLADDER/BILIARY: Unremarkable. No biliary dilatation. STOMACH AND ESOPHAGUS: Visualized stomach and esophagus within normal limits. BOWEL/MESENTERY: Moderate fecal content. Mild diverticulosis. No colitis or diverticulitis. Post appendectomy. Mesentery normal. No dilated bowel loops. ADENOPATHY/RETROPERITONEUM: No lymphadenopathy. AORTA/VASCULATURE: Normal caliber aorta. FREE FLUID OR FREE AIR: None. CT pelvis: SOLID ORGANS/REPRODUCTIVE: Unremarkable. BLADDER: Within normal limits. OSSEOUS STRUCTURES: No acute osseous abnormality.No suspicious lesions. OVERLYING SOFT TISSUES: Unremarkable. IMPRESSION: 1. No etiology identified to explain the patient's symptoms. Follow-up suggested if symptoms persist. Reviewed, dictated and finalized at location A. IMPRESSION: 1. No etiology identified to explain the patient's symptoms. Follow-up suggeste d if symptoms persist.
[2024-12-23 21:40] VITALS: BP 141/72; PULSE 103; RESP 18; TEMP 36.6; O2SAT 93
--- OUTSIDE RECORDS SUMMARY | 2024-12-23 21:42 | XMS_ITS | Clinical Summary ---
Author Organization [facility] Address [address] [place] [address] Care Team Providers Care Advertising Associate Name Role Phone Diego Cox MD Primary Care Provider Rula Garner Unavailable Unavailable Allergies No known active allergies Medications meloxicam (MOBIC) 15 mg tablet 05/23/19 21 Active naloxone (NARCAN) 4 mg/actuation spray,non-aerosol Administer 1 spray into affected nostril(s) as needed for opioid reversal or respiratory depression 1 each 1 06/10/19 21 Active sucralfate (CARAFATE) 1 gram tablet Take 1 tablet (1 g total) by mouth 4 (four) times a day Collaborating physician Marcial Hammer MD 120 tablet 10/26/19 21 Active famotidine (PEPCID) 20 mg tablet Take 1 tablet (20 mg total) by mouth 2 (two) times a day Collaborating physician Marcial Hammer MD 30 tablet 1 10/26/19 21 Active ondansetron ODT (ZOFRAN-ODT) 4 mg disintegrating tablet Take 1 tablet (4 mg total) by mouth every 6 (six) hours as needed for nausea Collaborating physician Marcial Hammer MD 20 tablet 10/26/19 21 Active traMADoL (ULTRAM) 50 mg tablet Take 1 tablet (50 mg total) by mouth every 6 (six) hours as needed for pain 16 tablet 09/03/[address] (PROTONIX) 40 mg EC tablet Take 1 tablet (40 mg total) by mouth daily 30 tablet 09/03/19 22 Active dicyclomine (BENTYL) 20 mg tablet Take 1 tablet (20 mg total) by mouth 2 (two) times a day 20 tablet 06/22/19 23 Active metoclopramide (REGLAN) 10 mg tablet Take 1 tablet (10 mg total) by mouth every 6 (six) hours 30 tablet 06/22/19 23 Active prochlorperazine (COMPAZINE) 10 mg tablet Take 1 tablet (10 mg total) by mouth every 6 (six) hours as needed for nausea or vomiting 15 tablet 06/25/19 23 Active capsaicin (ZOSTRIX) 0.025 % cream Apply topically 2 (two) times a day 60 g 06/25/19 23 Active Active Problems Problem Noted Date Diagnosed Date Esophagitis 10/25/2020 Drug abuse 10/25/2020 Opioid withdrawal 06/18/2020 Depression 07/25/2018 Medical History Medical History Date Comments Substance abuse (HCC) fentanyl Social History Tobacco Use Types Packs/Day Years Used Date Smoking Tobacco: Every Day Cigarettes Smokeless Tobacco: Never Personal Safety Answer Date Recorded Getting School Help Needed Not on file 07/02 Sex and Gender Information Value Date Recorded Sex Assigned at Not on file Legal Sex Male 9:47 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 Gender Identity Not on file Sexual Orientation Not on file Obstetrics History Last Filed Vital Signs Vital Sign Reading Time Taken Comments Blood Pressure 120/77 06/24/2022 1:30 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 Pulse 71 06/24/2022 1:30 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 Temperature 36.9 C (98.5 F) 06/23/2022 7:03 PM CLINICAL RESEARCH SPECIALIST Respiratory Rate 15 06/24/2022 1:30 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 Oxygen Saturation 94% 06/24/2022 1:30 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 Inhaled Oxygen Concentration - - Weight 72.6 kg (160 lb) 06/23/2022 7:03 PM CLINICAL RESEARCH SPECIALIST Height 165.1 cm (5' 5) 06/23/2022 7:03 PM CLINICAL RESEARCH SPECIALIST Body Mass Index 26.63 06/23/2022 7:03 PM CLINICAL RESEARCH SPECIALIST Plan of Treatment Health Maintenance Due Date Last Done Comments Colon Cancer Screening-Colonoscopy 1967 Depression Screening 1967 Hepatitis C Screening 1967 Prostate Cancer Screening-PSA 1967 DTaP/Tdap/Td Vaccine (1 - Tdap) 12/01/1978 Hepatitis B Screening 12/01/1985 Regular Well Visit/Exam 18-64 12/01/1985 Zoster Vaccine (1 of 2) 12/01/2017 Pneumococcal vaccine <65 (2 of 2 - PCV) 02/06/2020 1 , 01/18/2019 Covid-19 Vaccine (2 - 2024- season) 12/18/202408/2020 Influenza Vaccine (#1) 2024 01/19/2019 Additional Health Concerns Infection Onset Date Last Indicated C. difficile Comment:generated from [facility] 04/26/2011 04/26/2011 Insurance MEDICARE IDPA ID[place] MEDICARE MEDICARE IDWA Care Teams Advertising Associate Relationship Specialty Start Date End Date Diego Cox MD PCP - General 06/10/20 Rula Garner [employer] [facility] 06/10/20
--- NOTE | 2024-12-23 21:49 | ED.SOB ---
HPI - SOB/Dyspnea General Chief Complaint: Shortness of Breath/Dyspnea Stated Complaint: flu Time Seen by Provider: 12/23/24 21:49 Source: patient Mode of arrival: ambulatory Limitations: no limitations History of Present Illness HPI Narrative: 59-year-old male with a history of smoking, marijuana use, anxiety /depression emphysema, cyclic vomiting syndrome, chronic abdominal pain status post appendectomy, kidney stones, diverticulitis, biliary sludge, GERD/hiatal hernia, gastritis, esophagitis, C diff colitis presents to the ED with -- shortness of breath -- abdominal pain Related Data Home Medications ?Medication ?Instructions ?Recorded ?Confirmed ?Last Taken ?Type terbinafine HCl 250 mg tablet 250 mg PO DAILY 12/23/24 12/23/24 Unknown History varenicline tartrate 0.5 mg (11)-1 See Rx Instructions .Route .COMPLEX 12/23/24 12/23/24 Unknown History mg (42) tablets in a dose pack Allergies Allergy/AdvReac Type Severity Reaction Status Date / Time No Known Allergies Allergy Verified 12/23/24 21:45 [facility] Past Medical History Medical History Anxiety 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 Bilateral nephrolithiasis June 22, 2019 CT of abdomen and pelvis with contrast at [facility]. Biliary sludge C. 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 Marihuana dependence Nausea & vomiting Tobacco dependence Surgical History Surgical History History of appendectomy History of eye surgery As a child. History of inguinal hernia repair (~07/2013) Bilateral. Family History Family History Other Family history not known due to adoption Patient grew up in foster care and does not know his biological family or any medical history regarding such. Social History Social History Social History: The patient lives in [place] with his . They have 4 grown children. 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 He smokes 0.5 packs of cigarettes per day, but at most smoked 1.5 packs of cigarettes per day while he was driving. He uses marijuana socially. He drinks alcohol perhaps 1 time a month, and in moderation. He designates his , Sharon, as his surrogate decision maker and he wishes to be a full code. Smoking packs per day: 0.5 Smoking cigarettes per day: 10.0 Years smoked: 40 Smoking pack-years: 20.00 Smoking status: Current every day smoker Second hand tobacco smoke exposure: Yes Alcohol intake: never Alcohol use details: rarely Substance use: current Substance use type: marijuana Other substance usage details: 3x an week Do You Feel Safe in your Home?: Yes Lack of Transportation: No Lack of Food: Never True Current Housing: I Have Housing Concerned About Future Housing: No Difficulty Paying Gas/Electric Bills: No Difficulty Paying for Meds: No Currently Unemployed: No Education: High School Diploma/GED Difficulty w/ Childcare or Family Care: No Living arrangements: with family Spiritual care concerns: No Course Vital Signs Vital signs: Vital Signs Temperature 36.6 C 12/23/24 21:40 Pulse Rate 103 H 12/23/24 21:40 Respiratory Rate 18 12/23/24 21:40 Blood Pressure 141/72 H 12/23/24 21:40 Pulse Oximetry 93 12/23/24 21:40 Oxygen Delivery Room Air 12/23/24 21:40 Temperature 36.6 C 12/23/24 21:40 Pulse Rate 103 H 12/23/24 21:40 Respiratory Rate 18 12/23/24 21:40 Blood Pressure 141/72 H 12/23/24 21:40 Pulse Oximetry 93 12/23/24 21:40 Oxygen Delivery Room Air 12/23/24 21:40 Discharge Plan Discharge Patient Language: Arabic Prescriptions: No Action ondansetron 4 mg tablet,disintegrating 4 mg PO Q6H PRN (Reason: nausea and vomiting) Qty: 10 0RF terbinafine HCl 250 mg tablet 250 mg PO DAILY varenicline tartrate 0.5 mg (11)- 1 mg (42) tablets,dose pack See Rx Instructions .ROUTE .COMPLEX Rx Instructions: 0.5 AND 1 MG FOLLOW PACKAGE INSTRUCTIONS; pantoprazole [Protonix] 40 mg tablet,delayed release (DR/EC) 40 mg PO BID Qty: 60 0RF ondansetron HCl 4 mg tablet 4 mg PO Q4H PRN (Reason: nausea and vomiting) Qty: 14 0RF Rx Instructions: give 1st dose 30min before emetogenic chemo magnesium oxide 400 mg magnesium capsule 400 mg PO BID 10 Days Qty: 20 0RF pantoprazole [Protonix] [address] for susp in packet 40 mg PO DAILY Qty: 30 0RF Follow-up/Referrals: UNKNOWN,DOCTOR [Primary Care Provider]
--- NOTE | 2024-12-23 21:59 | ED.ABDPAIN ---
HPI - Abdominal Pain General Chief Complaint: Shortness of Breath/Dyspnea Stated Complaint: flu Time Seen by Provider: 12/23/24 21:49 Source: patient Mode of arrival: ambulatory Limitations: no limitations History of Present Illness HPI narrative: 59-year-old male, smoker, marijuana use with anxiety/ depression, emphysema, cyclic vomiting syndrome, Cerna's palsy,chronic abdominal pain status post appendectomy, kidney stones, biliary sludge, GERD/hiatal hernia, gastritis, esophagitis, diverticulitis presents to the ED with -- abdominal pain since this morning. Pain is located on the left side. Had nausea with 3 episodes of vomiting. No diarrhea. No fever or chills. No radiation of the pain. No exacerbating or relieving factors. No dysuria or hematuria. No hematemesis or melena. -- chronic abdominal pain MD elicited complaint: abdominal pain Pertinent past history: diverticulitis, gastritis and kidney stones Onset (ago): hour(s) ( 12 hours) Pain Consistency: constant Location: diffuse Severity: severe Quality: cramping Radiation: none Migration to: no migration Exacerbating factors: nothing Relieving factors: nothing Associated symptoms: nausea and vomiting Related Data Home Medications ?Medication ?Instructions ?Recorded ?Confirmed ?Last Taken ?Type terbinafine HCl 250 mg tablet 250 mg PO DAILY 12/23/24 12/23/24 Unknown History varenicline tartrate 0.5 mg (11)-1 See Rx Instructions .Route .COMPLEX 12/23/24 12/23/24 Unknown History mg (42) tablets in a dose pack Allergies Allergy/AdvReac Type Severity Reaction Status Date / Time No Known Allergies Allergy Verified 12/23/24 21:45 Review of Systems Review of Systems: All systems reviewed & are unremarkable except as noted in HPI and below Constitutional: Constitutional: Reports as per HPI and Reports no additional constitutional complaints Eyes: Eyes: Reports as per HPI and Reports no additional eye complaints ENT: Reports system reviewed and no additional complaints, except as documented and Reports as per HPI Cardiovascular: Cardiovascular: Reports as per HPI and Reports no additional cardiovascular complaints Respiratory: Respiratory: Reports as per HPI and Reports no additional respiratory complaints Gastrointestinal: Gastrointestinal: Reports as per HPI, Reports no additional gastrointestinal complaints, Reports abdominal pain, Reports nausea and Reports vomiting Genitourinary: Genitourinary: Reports no additional male genitourinary complaints and Reports as per HPI Musculoskeletal: Musculoskeletal: Reports no additional musculoskeletal complaints and Reports as per HPI Integumentary/Breasts: Skin/Breast: Reports system reviewed and no additional complaints, except as docu and Reports as per HPI Neurologic: Reports system reviewed and no additional complaints, except as documented and Reports as per HPI Comments: history of Cerna's palsy Psychiatric: Psychiatric: Reports no additional psychiatric complaints, Reports as per HPI and Reports anxiety Endocrine: Endocrine: Reports no additional endocrine complaints and Reports as per HPI Hematologic/Lymphatic: Hematologic/Lymphatic: Reports no additional hematologic/lymphatic complaints and Reports as per HPI Allergic/Immunologic: Allergic/Immunologic: Reports no additional allergic/immunologic complaints and Reports as per HPI [facility] Past Medical History Medical History Gastritis Esophagitis Colon cancer screening Dyspepsia Biliary sludge Nausea & vomiting [place] dependence Diarrhea Cyclical vomiting Gastroesophageal reflux disease Tobacco dependence Macular degeneration 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 Chronic back pain Bilateral nephrolithiasis June 22, 2019 CT of abdomen and pelvis with contrast at [facility]. Irritable bowel syndrome Diverticulitis (~05/2019) Involving the distal descending colon Depression Anxiety Head injury C. 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 Surgical History Surgical History History of eye surgery As a child. History of inguinal hernia repair (~07/2013) Bilateral. History of appendectomy Family History Family History Other Family history not known due to adoption Patient grew up in foster care and does not know his biological family or any medical history regarding such. Social History Social History Social History: The patient lives in [place] with his . They have 4 grown children. 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 He smokes 0.5 packs of cigarettes per day, but at most smoked 1.5 packs of cigarettes per day while he was driving. He uses marijuana socially. He drinks alcohol perhaps 1 time a month, and in moderation. He designates his , Sharon, as his surrogate decision maker and he wishes to be a full code. Smoking packs per day: 0.5 Smoking cigarettes per day: 10.0 Years smoked: 40 Smoking pack-years: 20.00 Smoking status: Current every day smoker Second hand tobacco smoke exposure: Yes Alcohol intake: never Alcohol use details: rarely Substance use: current Substance use type: marijuana Other substance usage details: 3x an week Do You Feel Safe in your Home?: Yes Lack of Transportation: No Lack of Food: Never True Current Housing: I Have Housing Concerned About Future Housing: No Difficulty Paying Gas/Electric Bills: No Difficulty Paying for Meds: No Currently Unemployed: No Education: High School Diploma/GED Difficulty w/ Childcare or Family Care: No Living arrangements: with family Spiritual care concerns: No Exam Narrative: afebrile. Oxygen saturation of 93% on room air with a respiratory rate of 18. Const: Limitations: no limitations HENMT: Head: normal to inspection Ears: external ears normal Face/Nose/Sinus: Normal external nose present Face and sinus: normal facial exam Mouth: Yes Normal oral and palatal mucosa present Throat: posterior oropharynx normal Eyes: Conjunctivae: conjunctivae normal Pupils: Equal, round and reactive pupils present EOM: EOMs intact bilaterally Direct Ophthalmoscopy: no photophobia Neck: Neck: normal visual inspection, no lymphadenopathy and no meningeal signs Chest: Chest palpation & inspection: normal inspection of the chest Resp: Auscultation: rhonchi and diminished lung sounds Cardio: Rate: regular rate Rhythm: regular rhythm GI: GI Palp: Yes Soft to palpation Auscultation: normal bowel sounds Other: Diffuse tenderness without any rigidity /rebound. Back/Spine/Pelvis: Back: no CVA tenderness Skin: General skin exam: normal color Rashes: no rashes Wounds: no wounds Neuro: General: patient oriented x3, moves all extremities, no meningeal signs, no focal motor deficits and CN's II-XI intact bilaterally Cranial nerves: Yes Nystagmus not present Speech: normal speech Gait exam (Neuro): Normal gait present Extrem: General: normal to inspection and no clubbing, cyanosis or edema Psych: Affect: Anxious affect present Other: Severe anxiety. Patient is tremulous and shaky. Course Course Emergency Course: abdominal pain-- abdominal examination revealed some tenderness without any rigidity /rebound. Patient has a history of chronic abdominal pain. CT of the abdomen and pelvis did not show any acute findings. The patient was noted to have an white count of 11.1 and a lactate of 1.1. chronic shortness of breath-- EKG did not show any findings. Patient had normal troponin proBNP. Negative RSV/influenza / COVID. Cocaine abuse patient received Dilaudid and Zofran with resolution of abdominal pain. Abdominal examination at the time of discharge was unremarkable without any tenderness/ rigidity / rebound. Vital Signs Vital signs: Vital Signs Temperature 36.6 C 12/23/24 21:40 Pulse Rate 103 H 12/23/24 21:40 Respiratory Rate 18 12/23/24 21:40 Blood Pressure 141/72 H 12/23/24 21:40 Pulse Oximetry 93 12/23/24 21:40 Oxygen Delivery Room Air 12/23/24 21:40 Temperature 36.6 C 12/23/24 21:40 Pulse Rate 73 12/24/24 00:31 Respiratory Rate 16 12/24/24 00:31 Blood Pressure 106/71 12/24/24 00:31 Pulse Oximetry 90 12/24/24 00:31 Oxygen Delivery Nasal Cannula 12/24/24 00:31 Oxygen Flow Rate 2 12/24/24 00:31 MDM - Abdominal Pain MDM Narrative Medical decision making narrative: abdominal pain cocaine abuse Differential Diagnosis Differential diagnosis: Likely calculus of kidney Medical Records Attestation: I reviewed the patient's medical records. Lab Data Attestation: I reviewed the patient's lab results. 12/23/24 22:26 12/23/24 22:26 Labs: Lab Results 12/23/24 12/23/24 12/23/24 Range/Units 21:51 22:25 22:26 WBC 11.1 H (4.8-10.8) K/mm3 RBC 5.23 (4.70-6.10) M/mm3 Hgb 16.3 (14.0-18.0) g/dL Hct 47.4 (40.0-54.0) % MCV 90.6 (78.0-102.0) fL MCH 31.2 H (27.0-31.0) pg MCHC 34.4 (32-36) g/dL RDW 13.2 (11.6-14.4) % Plt Count 278 (150-420) K/mm3 MPV 9.8 (8.7-11.0) fl Immature Gran % (Auto) 0.4 H (0.0-0.0) % Neut % (Auto) 70.6 H (50.0-70.0) % Lymph % (Auto) 19.7 (18.0-42.0) % [place] % (Auto) 7.6 (2.0-11.0) % Eos % (Auto) 0.9 L (1.0-6.0) % Baso % (Auto) 0.8 (0.0-1.0) % Lymph # (Auto) 2.19 (1.10-4.50) K/mm3 [place] # (Auto) 0.85 (0.10-0.90) K/mm3 Eos # (Auto) 0.10 (0.02-0.50) K/mm3 Baso # (Auto) 0.09 (0.00-0.10) K/mm3 Abs Immat Gran (auto) 0.05 H (0.00-0.00) K/mm3 Absolute Neuts (auto) 7.86 H (1.70-7.20) K/mm3 Absolute Nucleated RBC 0.00 (0.00-0.00) K/mm3 Nucleated RBC % 0.0 (0-0.0) % PT 10.7 (9.64-11.0) Seconds INR 1.0 Sodium 138 (137-145) mmol/L Potassium 4.3 (3.4-5.0) mmol/L Chloride 102 (98-107) mmol/L Carbon Dioxide 28 (22-30) mmol/L Anion Gap 8 (4-12) mmol/L BUN 19 (9-20) mg/dL Creatinine 1.02 (0.7-1.3) mg/dL Estim Creat Clear Calc 61 ml/min Estimated GFR > 60 (59 - ) Glucose 140 H (65-110) mg/dL Calculated Osmolality 290 (285-295) mOsm/kg Lactic Acid 1.1 (0.4-2.0) mmol/L Calcium 9.2 (8.4-10.2) mg/dL Total Bilirubin 0.9 (0.2-1.3) mg/dL AST 29 (17-59) U/L ALT 25 (6-50) U/L Alkaline Phosphatase 59 (38-126) U/L Total Creatine Kinase 135 (55-170) U/L Troponin I < 0.012 (0.000-0.034) ng/mL NT-Pro-B Natriuret Pep 30 (19.9-100) pg/mL Total Protein 7.2 (6.3-8.2) g/dL Albumin 4.3 (3.5-5.1) g/dL Lipase 208 (23-300) U/L Urine Color Yellow (Yellow) Urine Appearance Sl cloudy A (Clear) Urine pH 5.5 (5.0-8.0) Ur Specific [place] >= 1.030 H (1.010-1.020) Urine Protein Negative (Negative) Urine Glucose (UA) Negative (Negative) Urine Ketones Trace H (Negative) Ur Blood (Man) 1+ H (Negative) Urine Nitrate Negative (Negative) Urine Bilirubin 1+ H (Negative) Urine Urobilinogen 0.2 (0.2-1.0) mg/dL Leukocyte Esterase Rfl Negative (Negative) PAT/UL Urine RBC 6-10 H (0-2) /hpf Amorphous Sediment Moderate H (None) Urine Bacteria 2+ H (None) /hpf Urine Mucus Heavy H /lpf Urine Opiates Screen Positive A (Negative) Urine Methadone Screen Negative (Negative) Ur Barbiturates Screen Negative (Negative) Ur Phencyclidine Scrn Negative (Negative) Ur Amphetamine Screen Negative (Negative) U Benzodiazepines Scrn Negative (Negative) Urine Cocaine Screen Positive A (Negative) U Cannabinoids Screen Positive A (Negative) Influenza A (RT-PCR) Negative (Negative) Influenza B (RT-PCR) Negative (Negative) RSV (RT-PCR) Negative (Negative) SARS-CoV-2 RNA (RT-PCR) Negative (Negative) ECG Data EKG #1: ECG completion date: 12/23/24 ECG completion time: 22:26 Interpretation: normal sinus rhythm. Normal axis. No ST elevation. Discharge Plan Discharge Clinical Impression: Chronic abdominal pain, Cocaine abuse Patient Disposition: Home Condition: Stable Instructions: Antibiotic Form, Abdominal Pain (ED), Polysubstance Use Disorder (ED) Patient Language: Turkish Prescriptions: No Action ondansetron 4 mg tablet,disintegrating 4 mg PO Q6H PRN (Reason: nausea and vomiting) Qty: 10 0RF terbinafine HCl 250 mg tablet 250 mg PO DAILY varenicline tartrate 0.5 mg (11)- 1 mg (42) tablets,dose pack See Rx Instructions .ROUTE .COMPLEX Rx Instructions: 0.5 AND 1 MG FOLLOW PACKAGE INSTRUCTIONS; pantoprazole [Protonix] 40 mg tablet,delayed release (DR/EC) 40 mg PO BID Qty: 60 0RF ondansetron HCl 4 mg tablet 4 mg PO Q4H PRN (Reason: nausea and vomiting) Qty: 14 0RF Rx Instructions: give 1st dose 30min before emetogenic chemo magnesium oxide 400 mg magnesium capsule 400 mg PO BID 10 Days Qty: 20 0RF pantoprazole [Protonix] [address] for susp in packet 40 mg PO DAILY Qty: 30 0RF Follow-up/Referrals: UNKNOWN,DOCTOR [Non-Staff] Time of Disposition: 01:15
[2024-12-23 22:03] VITALS: BP 120/103; O2SAT 95
--- NOTE | 2024-12-23 22:04 | ECG_ITS ---
Test Date: 2024-12-23 22:26:19 Measurements Intervals [place] Rate: 79 P: 73 FL: 142 QRS: 81 QRSD: 85 T: 70 QT: 334 QTc: 385 Interpretive Statements SINUS RHYTHM No previous ECG available for comparison Electronically Signed On 12-24-2024 15:57:57 CDT by Kevin Nicholas M.D.
[2024-12-23] MEDS: HYDROmorphone HCL INJ (*CRX) 2 MG/ML VIAL 0.5 MG IV PUSH (22:11)
[2024-12-23] MEDS: ONDANSETRON INJ 4 MG/2 ML VIAL IV PUSH (22:11)
--- NOTE | 2024-12-23 22:15 | PC.NURSE ---
PATIENT IS AWARE THAT A URINE SAMPLE IS NEEDED. URINAL AT THE BEDSIDE
[2024-12-23 22:16] VITALS: BP 128/81; O2SAT 93
--- NOTE | 2024-12-23 22:20 | PC.NURSE ---
PATIENT SPO2 READINGS DROPPED DOWN TO 86% ON ROOM AIR. PATIENT PLACED ON 2 LITERS NC. PROVIDER NOTIFIED
--- OUTSIDE RECORDS SUMMARY | 2024-12-23 22:20 | XMS_ITS | Clinical Summary ---
Author Organization [facility] Address [address] [place] [address] Care Team Providers Care Enamel Machine Operator Name Role Phone Diego Cox MD Primary Care Provider Allergies No known active allergies Medications pantoprazole EC (PROTONIX) 40 MG tablet Take 1 tablet (40 mg total) by mouth 2 (two) times daily. 60 tablet 1 Active ondansetron (ZOFRAN-ODT) 4 MG disintegrating tablet 4 Active albuterol sulfate HFA 108 (90 Base) MCG/ACT inhaler 4 Active Active Problems Problem Noted Date Diagnosed Date Abdominal pain 07/20/2020 Opioid withdrawal ([facility]) 07/20/2020 Gastritis 07/20/2020 Carpal tunnel syndrome, bilateral upper limbs H/O Cerna's palsy 02/04/2019 Leukocytosis 02/04/2019 Bilateral inguinal hernia 01/23/2019 Calculus of kidney 07/25/2018 Microhematuria 07/25/2018 Weight loss 07/25/2018 Double vision 07/25/2018 Vision loss 07/25/2018 Change in bowel habits 07/25/2018 Depression 07/25/2018 Tremor 07/02/2015 Recurrent bilateral inguinal hernia (BIH) 2013 Resolved Problems Problem Noted Date Diagnosed Date Resolved Date Hematemesis 06/23/2019 06/23/2019 GI bleed 06/22/2019 06/23/2019 Diverticulitis 06/08/2019 06/23/2019 Left lower quadrant abdominal pain 06/08/2019 06/13/2019 Cellulitis 02/03/2019 02/05/2019 Nausea and vomiting 07/25/2018 06/23/19 20 Groin pain 07/18/2013 07/25/2018 Encounter for preventive health examination 07/13/2013 07/25/2018 Immunizations Immunization Administration Dates Next Due Pneumococcal (Pneumovax 23) 02/05/2019 Family History Medical History Relation Comments None Neg Hx Social History Tobacco Use Types Packs/Day Years Used Date Smoking Tobacco: Every Day Cigarettes Smokeless Tobacco: Never Tobacco Cessation:Ready to Q uit: No Alcohol Use Standard Drinks/Week Comments No 0 (1 standard drink = 0.6 oz pur e alcohol) AUDIT-C Answer Date Recorded Frequency of Alcohol Consumption Monthly or less 07/25/2018 Average Number of Drinks Not on file 019 Frequency of Binge Drinking Not on file 11/2018 Sex and Gender Information Value Date Recorded Sex Assigned at Male 07/25/2018 12:47 PM CDT Legal Sex Male 7:09 PM CDT Gender Identity Male 07/25/2018 12:47 PM CDT Sexual Orientation Not on file Last Filed Vital Signs Vital Sign Reading Time Taken Comments Blood Pressure 113/73 09/09/2023 2:30 PM CDT Pulse 70 09/09/2023 11:36 AM CDT Temperature 36.3 C (97.3 F) 09/09/2023 11:36 AM CDT Respiratory Rate 16 09/09/2023 11:36 AM CDT Oxygen Saturation 90% 09/09/2023 2:30 PM CDT Inhaled Oxygen Concentration - - Weight 70.3 kg (155 lb) 09/09/2023 11:36 AM CDT Height 165.1 cm (5' 5) 09/09/2023 11:36 AM CDT Body Mass Index 25.79 09/09/2023 11:36 AM CDT Plan of Treatment Health Maintenance Due Date Last Done Comments Colorectal Cancer Screening Colonoscopy (10 Years) 1967 Annual Physical 12/01/1970 Hepatitis C 12/01/1985 DTaP, Tdap and Td Vaccines ( 1 - Tdap) 12/01/1986 Hepatitis B Vaccines (1 of 3 - 19+ 3-dose series) 12/01/1986 Zoster Vaccines (1 of 2) 12/01/2017 Pneumococcal Vaccine: 50+ Ye ars (2 of 2 - PCV) 02/06/2020 02/05/2019 COVID-19 Vaccine ( - 2023-2 5 season) 2023 Meningococcal B Vaccine Aged Out No l onger eligible based on patient's age to complete this topic Meningococcal Vaccine Aged Out No sonia enrique eligible based on patient's age to complete this topic RSV Immunizations Under 20 Months Aged Out No longer eligible based on patient's age to complete this topic Insurance MEDICARE MEDICAID AETNA Advance Directives * Full Code (Latest Code Status on File) Date Activated Date Inactivated Comments 07/20/2020 6:43 AM 07/20/2020 1:05 PM * Full Code Date Activated Date Inactivated Comments 06/22/2019 2:46 PM 06/23/2019 4:36 PM * Full Code Date Activated Date Inactivated Comments 06/08/2019 10:43 AM 06/13/2019 1:49 PM * Full Code Date Activated Date Inactivated Comments 02/03/2019 9:19 PM 02/05/2019 12:59 PM Care Teams Enamel Machine Operator Relationship Specialty Start Date End Date Diego Cox MD [address] [place] [phone] PCP - General FAMILY PRACTICE 10/04/18
--- OUTSIDE RECORDS SUMMARY | 2024-12-23 22:20 | XMS_ITS | Clinical Summary ---
Author Organization [facility] Address [address] [place] [address] Care Team Providers Care Cupola Mechanic Name Role Phone Diego Cox MD Primary Care Provider [phone] Rula Garner Unavailable Unavailable Allergies No known [...] on file Legal Sex Male 9:47 AM FLAT SPRING ASSEMBLER Gender Identity Not on file Sexual Orientation Not on file Obstetrics History Last Filed Vital Signs Vital Sign Reading Time Taken Comments Blood Pressure 120/77 06/24/2022 1:30 AM FLAT SPRING ASSEMBLER Pulse 71 06/24/2022 1:30 AM FLAT SPRING ASSEMBLER Temperature 36.9 C (98.5 F) 06/23/2022 7:03 PM FLAT SPRING ASSEMBLER Respiratory Rate 15 06/24/2022 1:30 AM FLAT SPRING ASSEMBLER Oxygen Saturation 94% 06/24/2022 1:30 AM FLAT SPRING ASSEMBLER Inhaled Oxygen Concentration - - Weight 72.6 kg (160 lb) 06/23/2022 7:03 PM FLAT SPRING ASSEMBLER Height 165.1 cm (5' 5) 06/23/2022 7:03 PM FLAT SPRING ASSEMBLER Body Mass Index 26.63 06/23/2022 7:03 PM FLAT SPRING ASSEMBLER Plan of Treatment Health Maintenance Due Date [...] Date Last Indicated C. difficile Comment:generated from [facility] 04/26/2011 04/26/2011 Insurance MEDICARE IDPA IDMI MEDICARE MEDICARE IDMI Care Teams Cupola Mechanic Relationship Specialty Start Date End Date Diego Cox MD PCP - General 06/10/20 Rula Garner Sand Mill Operator [facility] 06/10/20
[2024-12-23 22:31] VITALS: BP 127/76; PULSE 76; RESP 14; O2SAT 93
[2024-12-23 22:32] VITALS: BP 116/75; PULSE 73; RESP 16; O2SAT 93
[2024-12-23 22:36] LABS: Hematocrit 47.4 % (40.0-54.0); Hemoglobin 16.3 g/dL (14.0-18.0); Immature Granulocyte Percent A 0.4 % (0.0-0.0); Lymphocytes Absolute Auto 2.19 K/mm3 (1.10-4.50); Mean Corpuscular HGB Conc 34.4 g/dL (32-36); Mean Corpuscular Hemoglobin 31.2 pg (27.0-31.0); Mean Corpuscular Volume 90.6 fL (78.0-102.0); Nucleated Red Blood Cells Absolute Auto 0.00 K/mm3 (0.00-0.00); Nucleated Red Blood Cells Perc 0.0 % (0-0.0); Platelet Count Result 278 K/mm3 (150-420); Red Blood Count 5.23 M/mm3 (4.70-6.10); White Blood Count 11.1 K/mm3 (4.8-10.8)
[2024-12-23 22:41] LABS: Influenza A QL RT-PCR Negative (Negative); Influenza B QL RT-PCR Negative (Negative); RSV RNA, RT-PCR Negative (Negative); SARS-CoV-2 RNA PCR Negative (Negative)
[2024-12-23 22:44] LABS: Alanine Aminotransferase 25 U/L (6-50); Albumin Level 4.3 g/dL (3.5-5.1); Alkaline Phosphatase 59 U/L (38-126); Anion Gap 8 mmol/L (4-12); Aspartate Amino Transferase 29 U/L (17-59); Bilirubin,Total 0.9 mg/dL (0.2-1.3); Blood Urea Nitrogen 19 mg/dL (9-20); Calcium 9.2 mg/dL (8.4-10.2); Carbon Dioxide 28 mmol/L (22-30); Chloride 102 mmol/L (98-107); Creatine Kinase 135 U/L (55-170); Estimated CRCL calculation 61 ml/min; Estimated Glomerular Filt Rate > 60; Glucose 140 mg/dL (65-110); Osmolality Calculated 290 mOsm/kg (285-295); Potassium 4.3 mmol/L (3.4-5.0); Sodium 138 mmol/L (137-145); Total Protein 7.2 g/dL (6.3-8.2)
--- NOTE | 2024-12-23 22:51 | PC.NURSE ---
PATIENT IS CURRENTLY RESTING ON STRETCHER. WAITING FOR ALL TESTS TO BE COMPLETED. CALL LIGHT IN REACH. REPORTS THAT HE IS FEELING BETTER AFTER THE DILAUDID.
[2024-12-23 22:56] LABS: NT Pro B Type Natriuretic Pept 30 pg/mL (19.9-100)
[2024-12-23 23:06] LABS: Lipase 208 U/L (23-300); Troponin I < 0.012 ng/mL (0.000-0.034)
[2024-12-23 23:10] LABS: Add Urine Microscopic? YES; Glucose Urine UA Negative (Negative); Leukocyte Esterase Ur Negative LEU/UL (Negative); Nitrate Urine Negative (Negative); Specific Grav Ur >= 1.030 (1.010-1.020)
[2024-12-23 23:18] LABS: INR 1.0; Prothrombin Time 10.7 Seconds (9.64-11.0)
[2024-12-23 23:26] LABS: Appearance Urine Sl Cloudy (Clear)
[2024-12-23 23:31] LABS: Cannabinoid Screen Urine Positive (Negative)
--- NOTE | 2024-12-23 23:38 | PC.NURSE ---
PATIENT IS CURRENTLY IN CT
[2024-12-23] MEDS: LACTATED RINGERS 500 ML 999 ML IV CONT (23:41)
[2024-12-23 23:43] VITALS: BP 130/94; PULSE 78; RESP 19; O2SAT 95
[2024-12-24 00:16] VITALS: BP 109/70; PULSE 79; RESP 17; O2SAT 91
[2024-12-24 00:31] VITALS: BP 106/71; PULSE 73; RESP 16; O2SAT 90
--- NOTE | 2024-12-24 00:35 | PC.NURSE ---
RESTING QUIETLY ON STRETCHER. AWAITING CT RESULTS. PATIENT CURRENTLY DENIES ANY OTHER NEEDS AT THIS TIME. CALL LIGHT IN REACH
--- NOTE | 2024-12-24 01:00 | PC.NURSE ---
PATIENT APPEARS TO BE SLEEPING. RESP EVEN AND UNLABORED. CALL LIGHT IN REACH
== END 2024-12-24 01:24 | disposition home or self-care (01) ==
PROVIDERS: Emergency Provider Internal Medicine Critical Care Medicine; PCP Family Medicine
DX: R10.9 Unspecified abdominal pain (principal); G89.29 Other chronic pain; F14.10 Cocaine abuse, uncomplicated; J43.9 Emphysema, unspecified; F17.210 Nicotine dependence, cigarettes, uncomplicated; Z20.822 Contact with and (suspected) exposure to COVID-19
CPT/HCPCS: 36415; 74177; 80053; 80307; 81001; 82550; 83605; 83690; 83880; 84484; 85025; 85610; 87637; 93005; 96374; 96375; 99284; J1171; J2405; J7120; Q9967

== ENCOUNTER 2024-12-25 14:51 | Outpatient (CLI) | payer MEDICARE, MEDICAID, SELFPAY ==
--- NOTE | ~2024-12-25 | XR_ITS ---
EXAMINATION: XR shoulder LT min 2V, 12/25/2024 15:30 CDT HISTORY: LEFT SHOULDER PAIN COMPARISON: No comparisons available. Findings: No acute fracture or malalignment. Moderate degenerative changes. Soft tissues unremarkable. Impression: No acute fracture or malalignment. Reviewed, dictated and finalized at location A. Impression: No acute fracture or malalignment.
--- NOTE | ~2024-12-25 | CT_ITS ---
EXAMINATION:CT lung screening DATE: 12/25/2024 15:07 INDICATION: Personal history of nicotine dependence. Current smoker. TECHNIQUE: Computed tomography (CT) of the chest was performed without intravenous contrast. Automated exposure control and iterative reconstruction technique were employed. The dose-length product (DLP) was 82.48 mGy-cm. COMPARISON: Chest CT 04/25/2024 FINDINGS: There is severe emphysema. There is a stable 4 mm nodule in right upper lobe. There is a stable 5 mm nodule in right middle lobe. There is mild atelectasis bilaterally. There is no pleural effusion. The heart size is normal. There are coronary artery calcifications. No pericardial effusion. There is mild bilateral gynecomastia. There is mild thoracic spondylosis. IMPRESSION: 1. Lung-RADS category 2: Benign appearance or behavior. Continue annual screening with noncontrast low-dose chest CT in 12 months. Reviewed, dictated and finalized at location E. IMPRESSION: 1. Lung-RADS category 2: Benign appearance or behavior. Continue annual screeni ng with noncontrast low-dose chest CT in 12 months.
--- OUTSIDE RECORDS SUMMARY | 2024-12-25 14:56 | XMS_ITS | Clinical Summary ---
Author Organization [facility] Address [address] [place] [address] Care Team Providers Care Cigar Packer And Grader Name Role Phone Diego Cox MD Primary [...] on file Legal Sex Male 9:47 AM SPECIAL INVESTIGATION UNIT INVESTIGATOR Gender Identity Not on file Sexual Orientation Not on file Obstetrics History Last Filed Vital Signs Vital Sign Reading Time Taken Comments Blood Pressure 120/77 06/24/2022 1:30 AM SPECIAL INVESTIGATION UNIT INVESTIGATOR Pulse 71 06/24/2022 1:30 AM SPECIAL INVESTIGATION UNIT INVESTIGATOR Temperature 36.9 C (98.5 F) 06/23/2022 7:03 PM SPECIAL INVESTIGATION UNIT INVESTIGATOR Respiratory Rate 15 06/24/2022 1:30 AM SPECIAL INVESTIGATION UNIT INVESTIGATOR Oxygen Saturation 94% 06/24/2022 1:30 AM SPECIAL INVESTIGATION UNIT INVESTIGATOR Inhaled Oxygen Concentration - - Weight 72.6 kg (160 lb) 06/23/2022 7:03 PM SPECIAL INVESTIGATION UNIT INVESTIGATOR Height 165.1 cm (5' 5) 06/23/2022 7:03 PM SPECIAL INVESTIGATION UNIT INVESTIGATOR Body Mass Index 26.63 06/23/2022 7:03 PM SPECIAL INVESTIGATION UNIT INVESTIGATOR Plan of Treatment Health Maintenance Due Date [...] Date Last Indicated C. difficile Comment:generated from [facility] 04/26/2011 04/26/2011 Insurance MEDICARE IDPA IDWV MEDICARE MEDICARE IDWV Care Teams Cigar Packer And Grader Relationship Specialty Start Date End Date Diego Cox MD PCP - General 06/10/20 Rula Garner Packer Addiction Medicine 06/10/20
--- OUTSIDE RECORDS SUMMARY | 2024-12-25 14:56 | XMS_ITS | Encounter Summary ---
Author Organization [facility] Address [address] [place] [id number] Care Team Providers Care Slab Puller Name Role Phone Diego Cox MD Primary Care Provider Encounter Details Date Type Department Care Team (Late st Contact Info) Description 09/24/2018 Abstract [facility] CONVERSION [address] [place] [address] , Generic ConversionMD Social History Tobacco Use Types Packs/Day Years Used Date Smoking Tobacco: Every Day Cigarettes Smokeless Tobacco: Never Alcohol Use Standard Drinks/Week Comments Yes 0 (1 standard drink = 0.6 oz [...] PM CDT Sexual Orientation Not on file documented as of this encounter Plan of Treatment Not on file documented as of this encounter Visit Diagnoses Not on filedocumented in this encounter Additional Health Concerns Infection Onset Date Last Indicated Resolved Time C. difficile 05/04/2018 05/04/2018 10/06/2018 1:49 PM CDT documented as of this encounter Care Teams Slab Puller Relationship Specialty Start Date End Date Diego Cox MD [address] [place] [phone] PCP - General FAMILY PRACTICE 10/04/18 documented as of this encounter
--- OUTSIDE RECORDS SUMMARY | 2024-12-25 14:56 | XMS_ITS | Clinical Summary ---
Author Organization [facility] Address [address] [place] [id number] Care Team Providers Care Tester Operator Name Role Phone Diego Cox MD [...] Diagnosed Date Abdominal pain 07/20/2020 Opioid withdrawal ([facility]) 07/20/2020 Gastritis 07/20/2020 Carpal tunnel [...] 9:19 PM 02/05/2019 12:59 PM Care Teams Tester Operator Relationship Specialty Start Date End Date Diego Cox MD [address] [place] [phone] PCP - General FAMILY PRACTICE 10/04/18
== END 2024-12-25 14:52 | disposition home or self-care (01) ==
PROVIDERS: PCP Family Medicine; Visit Provider Physician Assistant
DX: Z12.2 Encounter for screening for malignant neoplasm of respiratory organs (principal); Z87.891 Personal history of nicotine dependence; M25.512 Pain in left shoulder
CPT/HCPCS: 71271; 73030